=== PATIENT | female | born 1955 | race Caucasian/White ===

== ENCOUNTER → 2016-11-25 | Outpatient (CLI) | payer OTHER, BC ==
[~2016-11-25] MED LIST: ALBU17IN INH; ANAS1TAB PO; ATIV1TAB10 PO; BUDE0.5S6 INH; CALC600T71 PO; CVS20TAB PO; D3400CAP PO; LIPI10TA PO; OCEA0.654; PRED10PA PO; PRED10TA PO; PROBCAP4 PO; TYLE325T5 PO
[2016-11-25 08:26] LABS: ALBUMIN 3.6 GM/DL (3.2-5.2); ALKALINE PHOSPHATASE 48 U/L (45-117); ALT/SGPT 41 U/L (12-78); ANION GAP 8 MEQ/L (8-16); AST/SGOT 18 U/L (15-37); BILIRUBIN,TOTAL 0.6 MG/DL (0.2-1.0); BLOOD UREA NITROGEN 19 MG/DL (7-18); CALCIUM LEVEL 9.4 MG/DL (8.8-10.2); CARBON DIOXIDE LEVEL 31 MEQ/L (21-32); CHLORIDE LEVEL 105 MEQ/L (98-107); CREATININE FOR GFR 0.92 MG/DL (0.55-1.02); GLOMERULAR FILTRATION RATE > 60.0 (>45); GLUCOSE, FASTING 138 MG/DL (80-110); POTASSIUM SERUM 4.1 MEQ/L (3.5-5.1); SODIUM LEVEL 144 MEQ/L (136-145); TOTAL PROTEIN 6.6 GM/DL (6.4-8.2)
== END ==
LOC: M LAB 07:11
PROVIDERS: ATTEND Internal Medicine
DX: R73.09 Other abnormal glucose (principal); E55.9 Vitamin D deficiency, unspecified

== ENCOUNTER → 2016-12-14 | Outpatient (CLI) | payer OTHER, BC ==
--- NOTE | 2016-12-14 14:38 | REP ---
WHOLE-BODY BONE SCAN: 12/14/2016 COMPARISON: 05/15/2014 CLINICAL HISTORY: Breast carcinoma 2014. Left hip and knee pain. TECHNIQUE: The patient received 18.7 millicuries technetium 99m MDP via IV with anterior and posterior whole body delayed images with anterior posterior oblique images of the chest, pelvis, lateral views of the skull and neck and lateral views of the knees and feet. There is a pattern of symmetric increased uptake in the AC and glenohumeral joints, sternoclavicular joints at the hips and knees representing some mild degenerative change. The posterior 1st rib articulation on the right shows increased uptake. There is increased uptake in posterior elements of the cervical spine on the left as before. The other ribs are grossly intact. The thoracic spine shows minor posterior element uptake increase and the lumbar spine grossly intact as well. The SI joints are symmetric and unremarkable. Iliac wings, long bones and scapula are otherwise unremarkable. There is activity in the paranasal sinuses suggesting some chronic sinus disease. There is increased activity of the posterior right calcaneus increased since the 2013 study. Decreased on the left side since 2014 with only minimal uptake there. Some tarsal articular uptake is noted on the lateral views. Kidneys show activity with some uptake in the bladder but no other findings. The calvarium without any acute abnormality. IMPRESSION: 1. Pattern of uptake about the multiple joints as described most consistent with degenerative change. 2. Uptake in the posterior right 1st rib and posterior right calcaneus. This may be post-traumatic and/or possibly metastatic. A metastatic lesion to the heel would be decidedly unusual and this is much more likely traumatic. July 2016 CT of the chest shows sclerosis and advanced degenerative changes at the articulation of the right 1st rib with the adjacent transverse process which has sclerotic appearance. Metastatic disease is not excluded. Signed by Sylvester Grajeda MD 12/14/2016 05:42 P
== END ==
LOC: M RAD 10:23
PROVIDERS: ATTEND Internal Medicine Medical Oncology
DX: M25.552 Pain in left hip (principal); M25.562 Pain in left knee; Z85.3 Personal history of malignant neoplasm of breast

== ENCOUNTER → 2016-12-21 | Outpatient (REF) | payer OTHER, BC ==
[2016-12-21 17:22] LABS: INR 0.87
== END ==
LOC: M LAB REF 16:33
PROVIDERS: ATTEND Internal Medicine Medical Oncology
DX: C50.919 Malignant neoplasm of unspecified site of unspecified female breast (principal); Z79.899 Other long term (current) drug therapy

== ENCOUNTER → 2016-12-25 | Outpatient (CLI) | payer OTHER, BC ==
--- NOTE | 2016-12-25 16:07 | REP ---
CT CERVICAL SPINE WITHOUT CONTRAST: HISTORY: Abnormal bone scan right first rib. There is no acute fracture or subluxation. Disc bulges are present at the C3-4 and C4-5 levels. Disc bulges with associated osteophyte formation are present at the C5-6 and C6-7 levels. Uncinate process and/or facet hypertrophy are present at the C2-3 through C7-T1 levels. These findings produce minimal to mild narrowing of the neural foramina. The C4-5 through C6-7 intervertebral discs are decreased in height consistent with disc degeneration. There are 2 mm of anterior subluxation of C4 on C5. There is no definite bone lesion. IMPRESSION: There is cervical spondylosis at the C3-4 through C7-T1 levels. Signed by David Landry MD 12/25/2016 04:10 P
== END ==
LOC: M RAD 15:01
PROVIDERS: ATTEND Internal Medicine Medical Oncology
DX: M47.812 Spondylosis without myelopathy or radiculopathy, cervical region (principal); M47.813 Spondylosis without myelopathy or radiculopathy, cervicothoracic region

== ENCOUNTER → 2017-01-06 | Outpatient (REF) | payer OTHER, BC | LOC: M LAB REF 13:03 | PROVIDERS: ATTEND Internal Medicine Pulmonary Disease | DX: J45.50 Severe persistent asthma, uncomplicated (principal) ==

== ENCOUNTER → 2017-01-13 | Outpatient (REF) | payer OTHER, BC | LOC: M SFHCWAGY 15:52 | PROVIDERS: ATTEND Nurse Practitioner Women's Health | DX: Z12.4 Encounter for screening for malignant neoplasm of cervix (principal) ==

== ENCOUNTER → 2017-04-08 | Outpatient (REF) | payer OTHER, BC ==
[~2017-04-08] MED LIST changes: +CALC1TAB5 PO; -CALC600T71 PO
== END ==
LOC: M LAB REF 13:25
PROVIDERS: ATTEND Internal Medicine Medical Oncology
DX: C50.919 Malignant neoplasm of unspecified site of unspecified female breast (principal)

== ENCOUNTER → 2017-05-21 | Outpatient (CLI) | payer OTHER, BC ==
--- NOTE | 2017-05-21 18:11 | REP ---
Body radionuclide bone scan: History: Breast carcinoma. Hip pain. Comparison study: 12/14/2016 Technique: 21.6 mCi technetium 99m MDP is injected and standard whole body bone scan imaging is acquired. Scintigraphic findings: There is a degenerative pattern of increased uptake in the cervical thoracic junction in the lower cervical facets. There is uptake in the posterior aspect of the calcaneus on the right as seen previously most likely related to Achilles tendonitis. There is uptake in bilateral kidneys and in the urinary bladder. There is no compelling evidence of skeletal metastatic disease. Impression: No evidence of bony metastasis. Signed by Mandeep Candelario MD 05/25/2017 08:21 A
== END ==
LOC: M RAD 09:52
PROVIDERS: ATTEND Internal Medicine Medical Oncology
DX: C50.919 Malignant neoplasm of unspecified site of unspecified female breast (principal); M25.559 Pain in unspecified hip; M50.30 Other cervical disc degeneration, unspecified cervical region
CPT/HCPCS: 78306; A9503

== ENCOUNTER → 2017-05-25 | Outpatient (CLI) | payer OTHER, BC ==
[2017-05-25 08:11] LABS: ALBUMIN 3.6 GM/DL (3.2-5.2); ALBUMIN/GLOBULIN RATIO 1.03 (1.00-1.93); ALKALINE PHOSPHATASE 52 U/L (45-117); ALT/SGPT 35 U/L (12-78); ANION GAP 11 MEQ/L (8-16); AST/SGOT 19 U/L (15-37); BILIRUBIN,TOTAL 0.7 MG/DL (0.2-1.0); BLOOD UREA NITROGEN 15 MG/DL (7-18); CALCIUM LEVEL 8.7 MG/DL (8.8-10.2); CARBON DIOXIDE LEVEL 25 MEQ/L (21-32); CHLORIDE LEVEL 106 MEQ/L (98-107); CHOLESTEROL LEVEL 159 MG/DL (<200); GLOMERULAR FILTRATION RATE > 60.0 (>45); GLUCOSE, FASTING 112 MG/DL (80-110); POTASSIUM SERUM 4.1 MEQ/L (3.5-5.1); SODIUM LEVEL 142 MEQ/L (136-145); TOTAL PROTEIN 7.1 GM/DL (6.4-8.2); TRIGLYCERIDES LEVEL 221 MG/DL (<150)
== END ==
LOC: M LAB 07:14
PROVIDERS: ATTEND Internal Medicine
DX: E11.9 Type 2 diabetes mellitus without complications (principal)

== ENCOUNTER → 2017-09-28 | Outpatient (CLI) | payer OTHER, BC | LOC: M WHC 14:46 | DX: M85.88 Other specified disorders of bone density and structure, other site (principal); C50.919 Malignant neoplasm of unspecified site of unspecified female breast | CPT/HCPCS: 77080 ==

== ENCOUNTER → 2017-11-29 | Outpatient (REF) | payer OTHER, BC ==
[2017-11-30 10:34] LABS: CA15-3 ANTIGEN 14.4 U/ML (<32.4)
== END ==
LOC: M LAB REF 17:35
DX: C50.919 Malignant neoplasm of unspecified site of unspecified female breast (principal)

== ENCOUNTER → 2017-12-01 | Outpatient (CLI) | payer OTHER, BC ==
[2017-12-01 07:30] LABS: ESTIMATED AVERAGE GLUCOSE 174 MG/DL (60-110); HEMOGLOBIN A1c 7.7 %
[2017-12-01 07:34] LABS: ALBUMIN 3.7 GM/DL (3.2-5.2); ALBUMIN/GLOBULIN RATIO 1.23 (1.00-1.93); ALKALINE PHOSPHATASE 49 U/L (45-117); ALT/SGPT 37 U/L (12-78); ANION GAP 8 MEQ/L (8-16); AST/SGOT 22 U/L (7-37); BILIRUBIN,TOTAL 0.5 MG/DL (0.2-1.0); BLOOD UREA NITROGEN 13 MG/DL (7-18); CALCIUM LEVEL 9.4 MG/DL (8.8-10.2); CARBON DIOXIDE LEVEL 28 MEQ/L (21-32); CHLORIDE LEVEL 105 MEQ/L (98-107); CHOLESTEROL LEVEL 161 MG/DL (<200); CHOLESTEROL RISK RATIO 3.659 (<5); CREATININE FOR GFR 0.81 MG/DL (0.55-1.30); GLOMERULAR FILTRATION RATE > 60.0 (>45); GLUCOSE, FASTING 128 MG/DL (70-100); HDL CHOLESTEROL 44 MG/DL (>40); LDL CHOLESTEROL 86.4 MG/DL (<100); MAGNESIUM LEVEL 1.9 MG/DL (1.8-2.4); NON-HDL-C 117 MG/DL; POTASSIUM SERUM 3.8 MEQ/L (3.5-5.1); SODIUM LEVEL 141 MEQ/L (136-145); TOTAL PROTEIN 6.7 GM/DL (6.4-8.2); TRIGLYCERIDES LEVEL 153 MG/DL (<150)
[2017-12-01 07:44] LABS: MALB URINE SIEMENS 10.1 MG/L; MAU/CREAT RATIO 7.1 MCG/MG (0.0-30.0)
[2017-12-01 08:46] LABS: TOTAL 25(OH) VITAMIN D 55.4 NG/ML (30.0-100.0)
== END ==
LOC: M LAB 06:48
DX: E11.9 Type 2 diabetes mellitus without complications (principal); J45.909 Unspecified asthma, uncomplicated; E55.9 Vitamin D deficiency, unspecified; I10 Essential (primary) hypertension
CPT/HCPCS: 83735

== ENCOUNTER → 2018-01-19 | Outpatient (REF) | payer OTHER, BC | LOC: M SFHCWAGY 15:57 | DX: Z12.4 Encounter for screening for malignant neoplasm of cervix (principal) ==

== ENCOUNTER → 2018-01-24 | Outpatient (REF) | payer OTHER, BC ==
[2018-01-24 18:19] LABS: IMMUNOGLOBULIN E 29.9 IU/ML (<100)
[2018-01-24 19:32] LABS: BASO % 0.3 % (0.0-1.0); EOS # 0.2 10^3/uL (0.0-0.50); EOS % 2.9 % (0.0-3.0); HEMATOCRIT 39.9 % (36.0-47.0); HEMOGLOBIN 13.2 g/dl (12.0-15.5); IMMATURE GRANULOCYTE % 0.3 % (0-3.0); LYMPH # 1.5 10^3/uL (1.5-4.5); LYMPH % 22.1 % (24.0-44.0); MEAN CORPUSCULAR HEMOGLOBIN 29.3 pg (27.0-33.0); MEAN CORPUSCULAR HGB CONC 33.1 g/dl (32.0-36.5); MEAN CORPUSCULAR VOLUME 88.7 fl (80.0-96.0); MONO # 0.5 10^3/uL (0.0-0.8); MONO % 8.1 % (0.0-5.0); NEUTROPHILS # 4.4 10^3/uL (1.8-7.7); NEUTROPHILS % 66.3 % (36.0-66.0); PLATELET COUNT, AUTOMATED 302 10^3/uL (150-450); RED CELL DISTRIBUTION WIDTH 13.3 % (11.5-14.5); WHITE BLOOD COUNT 6.6 10^3/uL (4.0-10.0)
== END ==
LOC: M LAB REF 17:07
DX: J45.50 Severe persistent asthma, uncomplicated (principal)

== ENCOUNTER → 2018-01-25 | Outpatient (REF) | payer OTHER, BC | LOC: M LAB REF 17:24 | DX: J45.51 Severe persistent asthma with (acute) exacerbation (principal) ==

== ENCOUNTER → 2018-04-05 | Outpatient (REF) | payer OTHER, BC | LOC: M SFHCWAGY 10:33 | DX: R87.615 Unsatisfactory cytologic smear of cervix (principal); N95.2 Postmenopausal atrophic vaginitis ==

== ENCOUNTER 2018-04-18 08:02 | Outpatient (RCR) | payer OTHER, BC | END 2018-04-19 | LOC: M PT 08:02 | DX: Z51.89 Encounter for other specified aftercare (principal); I97.2 Postmastectomy lymphedema syndrome; Z90.13 Acquired absence of bilateral breasts and nipples | CPT/HCPCS: 97163 ==

== ENCOUNTER 2018-04-27 08:16 | Outpatient (RCR) | payer OTHER, BC | END 2018-05-20 | LOC: M PT 08:16 | DX: Z51.89 Encounter for other specified aftercare (principal); I89.0 Lymphedema, not elsewhere classified | CPT/HCPCS: 97140 ==

== ENCOUNTER → 2018-06-07 | Outpatient (CLI) | payer OTHER, BC ==
[2018-06-07 07:39] LABS: ESTIMATED AVERAGE GLUCOSE 180 MG/DL (60-110); HEMOGLOBIN A1c 7.9 %
[2018-06-07 07:59] LABS: ALBUMIN 3.4 GM/DL (3.2-5.2); ALBUMIN/GLOBULIN RATIO 1.03 (1.00-1.93); ALKALINE PHOSPHATASE 46 U/L (45-117); ALT/SGPT 22 U/L (12-78); ANION GAP 10 MEQ/L (8-16); AST/SGOT 7 U/L (7-37); BILIRUBIN,TOTAL 0.6 MG/DL (0.2-1.0); BLOOD UREA NITROGEN 22 MG/DL (7-18); CALCIUM LEVEL 9.2 MG/DL (8.8-10.2); CARBON DIOXIDE LEVEL 29 MEQ/L (21-32); CHLORIDE LEVEL 104 MEQ/L (98-107); CHOLESTEROL LEVEL 158 MG/DL (<200); CREATININE FOR GFR 0.84 MG/DL (0.55-1.30); GLOMERULAR FILTRATION RATE > 60.0 (>45); GLUCOSE, FASTING 102 MG/DL (70-100); HDL CHOLESTEROL 65 MG/DL (>40); LDL CHOLESTEROL 57 MG/DL (<100); NON-HDL-C 93 MG/DL; POTASSIUM SERUM 3.7 MEQ/L (3.5-5.1); SODIUM LEVEL 143 MEQ/L (136-145); TOTAL PROTEIN 6.7 GM/DL (6.4-8.2); TRIGLYCERIDES LEVEL 180 MG/DL (<150)
== END ==
LOC: M LAB 06:35
DX: E11.9 Type 2 diabetes mellitus without complications (principal)

== ENCOUNTER → 2018-06-07 | Outpatient (REF) | payer OTHER, BC ==
[2018-06-07 15:13] LABS: CA15-3 ANTIGEN 14.2 U/ML (<32.4)
== END ==
LOC: M LAB REF 13:43
DX: C50.511 Malignant neoplasm of lower-outer quadrant of right female breast (principal); Z79.811 Long term (current) use of aromatase inhibitors
CPT/HCPCS: 86300

== ENCOUNTER → 2018-09-06 | Outpatient (CLI) | payer OTHER, BC ==
[~2018-09-06] MED LIST changes: -ANAS1TAB PO; +ANAS1TAB2 PO
--- NOTE | 2018-09-06 10:42 | REP ---
MAXILLOFACIAL CT WITHOUT CONTRAST: HISTORY: Chronic sinusitis. Mucosal thickening is present in the sinuses. Moderate mucosal thickening is present in the maxillary, ethmoid, left frontal, and left sphenoid sinuses. Minimal mucosal thickening is present in the right frontal and right sphenoid sinuses. Mucosal thickening involves the ostiomeatal units. The middle and inferior nasal turbinates are partially paradoxical. There is francisco bullosa of the right middle nasal turbinate. There is mild deviation of the nasal septum to the left. The cribriform plate, medial gottlieb of the orbits and optic canals are intact. The carotid canals form a segment of the posterolateral gottlieb of the sphenoid sinus. IMPRESSION: Sinus mucosal thickening as described above. Electronically Signed by David Landry MD 09/06/2018 10:43 A
== END ==
LOC: M RAD 09:57
PROVIDERS: ATTEND Otolaryngology
DX: J32.9 Chronic sinusitis, unspecified (principal)

== ENCOUNTER → 2018-12-27 | Outpatient (CLI) | payer OTHER, BC ==
[~2018-12-27] MED LIST changes: +CETI10CH PO; -CVS20TAB PO; +D-10TAB2 PO; +METF750T PO; +OMEP20TA9 PO; +PRED-351 PO; -PRED10TA PO; +PRED5PAK2 PO; +SING10TA32 PO
--- NOTE | 2018-12-30 13:45 | DEXA ---
AP SPINE L1 - L4 1.070 -1.0 0.6 LT FEMUR TOTAL 0.837 -1.4 -0.1 LT NECK RT FEMUR TOTAL 0.840 -1.3 -0.1 RT NECK TOTAL BODY TOTAL OTHER COMMENTS: There is low bone density of the spine and hips. The density of the spine has decreased 10.2% since the initial exam on 09/15/2007. The spine density has increased 0.8% since the most recent exam on 10/08/2017. The density of the left hip has decreased 13.0% since the initial exam on 09/15/2007. The density of the left hip has decreased 1.1% since the most recent exam on 09/28/2017. Density of the right hip has decreased 10.9% since the initial exam on 09/15/2007. The density of the right hip has increased 0.9% since the most recent exam on 09/28/2017. FOLLOW-UP: Recommendation for the next bone density exam: 2 years. DANNY
== END ==
LOC: M WHC 14:36
PROVIDERS: ATTEND Nurse Practitioner Family
DX: Z13.820 Encounter for screening for osteoporosis (principal); M85.89 Other specified disorders of bone density and structure, multiple sites

== ENCOUNTER → 2019-06-17 | Outpatient (CLI) | payer OTHER, BC ==
[~2019-06-17] MED LIST changes: +CALCD50TA PO; -METF750T PO; +METF750T36 PO; +NASA1SPR NARES; +SYMB16INH INH; +TIOT18INH INH
[2019-06-17 09:27] LABS: HEMOGLOBIN A1c 7.6 %
[2019-06-17 10:20] LABS: ALBUMIN 3.8 GM/DL (3.2-5.2); ALT/SGPT 28 U/L (12-78); BILIRUBIN,TOTAL 0.8 MG/DL (0.2-1.0); BLOOD UREA NITROGEN 11 MG/DL (7-18); CALCIUM LEVEL 9.7 MG/DL (8.8-10.2); CARBON DIOXIDE LEVEL 29 MEQ/L (21-32); CHLORIDE LEVEL 107 MEQ/L (98-107); CREATININE FOR GFR 0.83 MG/DL (0.55-1.30); GLOMERULAR FILTRATION RATE > 60.0 (>45); GLUCOSE, FASTING 121 MG/DL (70-100); POTASSIUM SERUM 3.9 MEQ/L (3.5-5.1); SODIUM LEVEL 142 MEQ/L (136-145)
[2019-06-19 10:10] LABS: TOTAL 25(OH) VITAMIN D 55.5 NG/ML (30.0-100.0)
== END ==
LOC: M LAB 08:31
PROVIDERS: ATTEND Internal Medicine
DX: E11.9 Type 2 diabetes mellitus without complications (principal); E55.9 Vitamin D deficiency, unspecified

== ENCOUNTER → 2019-11-01 | Outpatient (CLI) | payer OTHER, BC ==
[~2019-11-01] MED LIST changes: +ALBU8.5H IH
[2019-11-01 07:19] LABS: HEMOGLOBIN A1c 7.6 %
[2019-11-01 07:39] LABS: ALBUMIN 3.8 GM/DL (3.2-5.2); ALT/SGPT 27 U/L (12-78); BILIRUBIN,TOTAL 0.6 MG/DL (0.2-1.0); BLOOD UREA NITROGEN 19 MG/DL (7-18); CARBON DIOXIDE LEVEL 32 MEQ/L (21-32); CHLORIDE LEVEL 103 MEQ/L (98-107); CHOLESTEROL LEVEL 175 MG/DL (<200); CHOLESTEROL RISK RATIO 3.125 (<5); CREATININE FOR GFR 0.84 MG/DL (0.55-1.30); GLOMERULAR FILTRATION RATE > 60.0 (>45); GLUCOSE, FASTING 126 MG/DL (70-100); HDL CHOLESTEROL 56 MG/DL (>40); LDL CHOLESTEROL 92 MG/DL (<100); NON-HDL-C 119 MG/DL; POTASSIUM SERUM 4.1 MEQ/L (3.5-5.1); SODIUM LEVEL 140 MEQ/L (136-145); TOTAL PROTEIN 6.9 GM/DL (6.4-8.2); TRIGLYCERIDES LEVEL 134 MG/DL (<150)
[2019-11-01 07:58] LABS: MALB URINE SIEMENS 19.3 MG/L; MAU/CREAT RATIO 12.3 MCG/MG (0.0-30.0)
== END ==
LOC: M LAB 06:28
PROVIDERS: ATTEND Internal Medicine
DX: E11.9 Type 2 diabetes mellitus without complications (principal); E78.00 Pure hypercholesterolemia, unspecified; K76.0 Fatty (change of) liver, not elsewhere classified

== ENCOUNTER → 2020-02-13 | Outpatient (CLI) | payer OTHER, BC ==
[~2020-02-13] MED LIST changes: +AZIT500T5 PO
--- NOTE | 2020-02-20 15:54 | DEXA ---
AP SPINE L1 - L4 1.085 -0.9 0.7 LT FEMUR TOTAL 0.848 -1.3 0.0 LT NECK 0.323 -1.5 0.0 RT FEMUR TOTAL 0.828 -1.4 -0.1 RT NECK 0.810 -1.6 -0.1 TOTAL BODY TOTAL OTHER COMMENTS: Normal bone densitometry of the spine. There is low bone density of the hips. The increased density of the spine does not represent a significant change. The increased density of the left hip does not represent a significant change. The decreased density of the right hip does not represent a significant change. The density of the spine has decreased 9.0% since the initial exam on 09/15/2007. The increased 1.4% since most recent exam on 01/06/2019. The density of the left hip has decreased 11.9% since initial exam on 09/15/2007. The density of the left hip has increased 1.3% since the most recent exam on 01/06/2019. The density of the right hip has decreased 12.2% since the initial exam on 09/15/2007. The density of the right hip has decreased 1.4% since the most recent exam on 01/06/2019. FOLLOW-UP: Recommendation for the next bone density exam: 2 years. DANNY
== END ==
LOC: M WHC 15:27
PROVIDERS: ATTEND Internal Medicine Medical Oncology
DX: C50.511 Malignant neoplasm of lower-outer quadrant of right female breast (principal); M85.851 Other specified disorders of bone density and structure, right thigh; M85.852 Other specified disorders of bone density and structure, left thigh

== ENCOUNTER → 2020-02-20 | Outpatient (REF) | payer OTHER, BC | LOC: M SFHCWAGY 10:19 | PROVIDERS: ATTEND Nurse Practitioner Women's Health | DX: Z12.4 Encounter for screening for malignant neoplasm of cervix (principal); Z01.419 Encounter for gynecological examination (general) (routine) without abnormal findings ==

== ENCOUNTER → 2020-04-25 | Outpatient (REF) | payer OTHER, BC ==
[2020-06-09 16:28] LABS: ALBUMIN 3.8 GM/DL (3.2-5.2); ALT/SGPT 30 U/L (12-78); BILIRUBIN,TOTAL 0.5 MG/DL (0.2-1.0); BLOOD UREA NITROGEN 15 MG/DL (7-18); CALCIUM LEVEL 9.6 MG/DL (8.8-10.2); CARBON DIOXIDE LEVEL 29 MEQ/L (21-32); CHLORIDE LEVEL 110 MEQ/L (98-107); CREATININE FOR GFR 0.91 MG/DL (0.55-1.30); GLOMERULAR FILTRATION RATE > 60.0 (>45); GLUCOSE, FASTING 144 MG/DL (70-100); HEMOGLOBIN A1c 7.9 %; POTASSIUM SERUM 4.3 MEQ/L (3.5-5.1); SODIUM LEVEL 143 MEQ/L (136-145); TOTAL PROTEIN 6.8 GM/DL (6.4-8.2)
== END ==
LOC: M WUC 10:14
PROVIDERS: ATTEND Internal Medicine
DX: E11.9 Type 2 diabetes mellitus without complications (principal); E78.00 Pure hypercholesterolemia, unspecified

== ENCOUNTER → 2020-04-25 | Outpatient (REF) | payer OTHER, BC ==
[2020-06-11 12:52] LABS: ANTI TETANUS ANTIBODY SEE SEPARATE REPORT; STREP PNEUMO TYPE 1 SEE SEPARATE REPORT
[2020-06-21 02:36] LABS: BASO # 0.1 10^3/uL (0.0-0.2); BASO % 1.3 % (0.0-1.0); EOS # 1.1 10^3/uL (0.0-0.5); EOS % 16.4 % (0.0-3.0); ERYTHROCYTE SEDIMENTATION RATE 10 mm/hr (0-30); HEMATOCRIT 41.7 % (36.0-47.0); HEMOGLOBIN 13.4 g/dl (12.0-15.5); LYMPH # 1.7 10^3/uL (1.5-5.0); LYMPH % 27.2 % (24.0-44.0); MEAN CORPUSCULAR HEMOGLOBIN 29.5 pg (27.0-33.0); MEAN CORPUSCULAR HGB CONC 32.1 g/dl (32.0-36.5); MEAN CORPUSCULAR VOLUME 91.6 fl (80.0-96.0); MONO # 0.5 10^3/uL (0.0-0.8); MONO % 7.5 % (0.0-5.0); NEUTROPHILS % 47.3 % (36.0-66.0); PLATELET COUNT, AUTOMATED 246 10^3/uL (150-450); RED BLOOD COUNT 4.55 10^6/uL (4.00-5.40); WHITE BLOOD COUNT 6.4 10^3/uL (4.0-10.0)
[2020-06-22 15:47] LABS: BLOOD UREA NITROGEN 15 MG/DL (7-18); CALCIUM LEVEL 9.5 MG/DL (8.8-10.2); CARBON DIOXIDE LEVEL 29 MEQ/L (21-32); CHLORIDE LEVEL 109 MEQ/L (98-107); CREATININE FOR GFR 0.94 MG/DL (0.55-1.30); GLOMERULAR FILTRATION RATE > 60.0 (>45); GLUCOSE, FASTING 147 MG/DL (70-100); POTASSIUM SERUM 4.1 MEQ/L (3.5-5.1); SODIUM LEVEL 143 MEQ/L (136-145)
[2020-06-22 15:48] LABS: ALBUMIN 3.7 GM/DL (3.2-5.2); ALT/SGPT 30 U/L (12-78); BILIRUBIN,TOTAL 0.5 MG/DL (0.2-1.0); TOTAL PROTEIN 6.9 GM/DL (6.4-8.2)
== END ==
LOC: M WUC 10:15
PROVIDERS: ATTEND Allergy & Immunology Allergy
DX: D84.9 Immunodeficiency, unspecified (principal)

== ENCOUNTER → 2020-07-14 | Outpatient (REF) | payer OTHER, BC | LOC: M LAB REF 13:18 | PROVIDERS: ATTEND Internal Medicine Pulmonary Disease | DX: J45.51 Severe persistent asthma with (acute) exacerbation (principal) ==

== ENCOUNTER → 2020-08-07 | Outpatient (CLI) | payer OTHER, BC | LOC: M LAB 06:33 | PROVIDERS: ATTEND Allergy & Immunology Allergy | DX: D84.9 Immunodeficiency, unspecified (principal) ==

== ENCOUNTER → 2020-09-08 | Outpatient (CLI) | payer OTHER, BC ==
--- NOTE | 2020-09-08 10:07 | REP ---
INDICATION: PAIN COMPARISON: None. TECHNIQUE: AP, lateral, bilateral oblique views. FINDINGS: There is an oblique nondisplaced fracture of the distal fibular metaphysis with overlying soft tissue swelling. Generalized age-related degenerative changes are appreciated. IMPRESSION: Acute nondisplaced oblique fracture of the distal fibular metaphysis. <Electronically signed by Jozef Day > 09/08/20 [id number]
== END ==
LOC: M WUC 09:49
PROVIDERS: ATTEND Nurse Practitioner Family
DX: M25.572 Pain in left ankle and joints of left foot (principal); W00.0XXA Fall on same level due to ice and snow, initial encounter; Y92.89 Other specified places as the place of occurrence of the external cause; Y93.9 Activity, unspecified; Y99.9 Unspecified external cause status

== ENCOUNTER → 2020-09-19 | Outpatient (REF) | payer OTHER, BC | LOC: M LAB REF 13:16 | PROVIDERS: ATTEND Internal Medicine Pulmonary Disease | DX: J45.50 Severe persistent asthma, uncomplicated (principal) ==

== ENCOUNTER → 2020-09-21 | Outpatient (CLI) | payer SELFPAY | LOC: M LABSMTC 11:07 | PROVIDERS: ATTEND Pediatrics | DX: Z20.828 Contact with and (suspected) exposure to other viral communicable diseases (principal) ==

== ENCOUNTER → 2020-11-06 | Outpatient (CLI) | payer OTHER, BC ==
[2020-11-06 09:33] LABS: BASO # 0.1 10^3/uL (0.0-0.2); BASO % 1.1 % (0.0-1.0); EOS # 0.5 10^3/uL (0.0-0.5); EOS % 9.9 % (0.0-3.0); HEMATOCRIT 40.7 % (36.0-47.0); HEMOGLOBIN 12.9 g/dl (12.0-15.5); LYMPH # 1.7 10^3/uL (1.5-5.0); LYMPH % 30.7 % (24.0-44.0); MEAN CORPUSCULAR HEMOGLOBIN 28.8 pg (27.0-33.0); MEAN CORPUSCULAR HGB CONC 31.7 g/dl (32.0-36.5); MEAN CORPUSCULAR VOLUME 90.8 fl (80.0-96.0); MONO # 0.5 10^3/uL (0.0-0.8); MONO % 9.3 % (2.0-8.0); NEUTROPHILS # 2.7 10^3/uL (1.5-8.5); NEUTROPHILS % 48.8 % (36.0-66.0); PLATELET COUNT, AUTOMATED 227 10^3/uL (150-450); RED BLOOD COUNT 4.48 10^6/uL (4.00-5.40); WHITE BLOOD COUNT 5.5 10^3/uL (4.0-10.0)
[2020-11-06 10:04] LABS: ALBUMIN 3.5 GM/DL (3.2-5.2); ALT/SGPT 23 U/L (12-78); BILIRUBIN,TOTAL 0.5 MG/DL (0.2-1.0); BLOOD UREA NITROGEN 13 MG/DL (7-18); CALCIUM LEVEL 9.3 MG/DL (8.8-10.2); CARBON DIOXIDE LEVEL 31 MEQ/L (21-32); CHLORIDE LEVEL 108 MEQ/L (98-107); CHOLESTEROL LEVEL 166 MG/DL (<200); CHOLESTEROL RISK RATIO 3.387 (<5); CREATININE FOR GFR 0.82 MG/DL (0.55-1.30); GLOMERULAR FILTRATION RATE > 60.0 (>45); GLUCOSE, FASTING 111 MG/DL (70-100); HDL CHOLESTEROL 49 MG/DL (>40); LDL CHOLESTEROL 86 MG/DL (<100); MAGNESIUM LEVEL 1.9 MG/DL (1.8-2.4); NON-HDL-C 117 MG/DL; SODIUM LEVEL 143 MEQ/L (136-145); TOTAL PROTEIN 6.4 GM/DL (6.4-8.2); TRIGLYCERIDES LEVEL 155 MG/DL (<150)
[2020-11-06 10:08] LABS: MALB URINE SIEMENS 12.9 MG/L; MAU/CREAT RATIO 7.5 MCG/MG (0.0-30.0)
[2020-11-06 10:25] LABS: HEMOGLOBIN A1c 7.1 %
== END ==
LOC: M LAB 08:44
PROVIDERS: ATTEND Internal Medicine
DX: I10 Essential (primary) hypertension (principal)

== ENCOUNTER → 2021-02-13 | Outpatient (CLI) | payer OTHER, BC ==
[~2021-02-13] MED LIST changes: +OMEP20TA2 PO; -OMEP20TA9 PO
--- NOTE | 2021-02-13 10:49 | DEXAMM ---
INDICATION: OSTEOPENIA/ON ARMITASE IN HIBITOR/BREAST CA. COMPARISON: Most recent comparison densitometry exam is dated 13 Feb 2020. The most remote is from 15 September 2007. TECHNIQUE: Bone density was measured using dual-energy x-ray absorptionmetry (DEXA). FINDINGS: AP SPINE L1-L4 BMD 1.093 g/cm2 Young Adult T-Score -0.8 Age Matched Z-Score 0.8. LT FEMUR, TOTAL BMD 0.880 g/cm2 Young Adult T-Score -1.0 Age Matched Z-Score 0.3. LT NECK BMD 0.834 g/cm2 Young Adult T-Score -1.5 Age Matched Z-Score 0.1. RT FEMUR, TOTAL BMD 0.844 g/cm2 Young Adult T-Score -1.3 Age Matched Z-Score 0.1. RT NECK BMD 0.806 g/cm2 Young Adult T-Score -1.7 Age Matched Z-Score -0.1. IMPRESSION: There is normal bone density of the spine. There is low bone density of the left hip. There is low bone density of the right hip. The density of the spine has decreased 8.3% since the initial exam on September 15, 2007. The density of the spine increased 0.7% since most recent exam on February 13, 2020. The density of the left hip has decreased 8.5% since initial exam on September 15, 2007. The density of the left hip has increased 3.8% since most recent exam on February 13, 2020. The density of the right hip has decreased 10.5% since the initial exam on September 15, 2007. The density of the right hip has increased 1.9% since the most recent exam on February 13, 2020. FOLLOW-UP: Recommendation for the next bone density exam: 2 years. <Electronically signed by Anoop Candelario > 02/13/21 [id number]
== END ==
LOC: M WHC 09:49
PROVIDERS: ATTEND Internal Medicine Medical Oncology
DX: M85.88 Other specified disorders of bone density and structure, other site (principal); C50.911 Malignant neoplasm of unspecified site of right female breast; Z79.811 Long term (current) use of aromatase inhibitors

== ENCOUNTER → 2021-02-23 | Outpatient (CLI) | payer OTHER, BC ==
[~2021-02-23] MED LIST changes: +BREAST PROSTHESIS B XX; +HIZE20IN SC; +MASTECTOMY BRA BILAT XX
[2021-02-23 09:33] LABS: BASO % 0.2 % (0.0-1.0); EOS # 0.1 10^3/uL (0.0-0.5); EOS % 0.8 % (0.0-3.0); HEMATOCRIT 43.9 % (36.0-47.0); HEMOGLOBIN 14.2 g/dl (12.0-15.5); LYMPH # 1.4 10^3/uL (1.5-5.0); LYMPH % 15.4 % (24.0-44.0); MEAN CORPUSCULAR HEMOGLOBIN 28.6 pg (27.0-33.0); MEAN CORPUSCULAR HGB CONC 32.3 g/dl (32.0-36.5); MEAN CORPUSCULAR VOLUME 88.5 fl (80.0-96.0); MONO # 0.6 10^3/uL (0.0-0.8); MONO % 6.5 % (2.0-8.0); NEUTROPHILS # 6.9 10^3/uL (1.5-8.5); NEUTROPHILS % 76.8 % (36.0-66.0); PLATELET COUNT, AUTOMATED 289 10^3/uL (150-450); RED BLOOD COUNT 4.96 10^6/uL (4.00-5.40); WHITE BLOOD COUNT 8.9 10^3/uL (4.0-10.0)
[2021-02-23 10:14] LABS: IMMUNOGLOBULIN E 54.1 IU/ML (<100)
== END ==
LOC: M LAB 08:54
PROVIDERS: ATTEND Allergy & Immunology Allergy
DX: D84.9 Immunodeficiency, unspecified (principal)

== ENCOUNTER → 2021-02-23 | Outpatient (CLI) | payer OTHER, BC ==
--- NOTE | 2021-02-23 09:17 | REP ---
INDICATION: UNSPECIFIED ASTHMA WITH (ACUTE) EXACERBATION COMPARISON: 03/12/2016 TECHNIQUE: PA and lateral. FINDINGS: The mediastinum and cardiac silhouette are normal. The lung proctor are clear and without acute consolidation, effusion, or pneumothorax. The skeletal structures are intact and normal. IMPRESSION: No acute cardiopulmonary process. <Electronically signed by Jozef Day > 02/23/21 0914
== END ==
LOC: M RAD 08:51
PROVIDERS: ATTEND Physician Assistant
DX: J45.901 Unspecified asthma with (acute) exacerbation (principal); R06.02 Shortness of breath

== ENCOUNTER → 2021-05-08 | Outpatient (CLI) | payer OTHER, BC ==
[2021-05-08 08:00] LABS: HEMOGLOBIN A1c 7.3 %
[2021-05-08 08:14] LABS: ALBUMIN 3.4 GM/DL (3.2-5.2); ALT/SGPT 35 U/L (12-78); BILIRUBIN,TOTAL 0.5 MG/DL (0.2-1.0); BLOOD UREA NITROGEN 20 MG/DL (7-18); CALCIUM LEVEL 8.9 MG/DL (8.8-10.2); CARBON DIOXIDE LEVEL 29 MEQ/L (21-32); CHLORIDE LEVEL 107 MEQ/L (98-107); GLOMERULAR FILTRATION RATE > 60.0 (>45); GLUCOSE, FASTING 135 MG/DL (70-100); MAGNESIUM LEVEL 1.8 MG/DL (1.8-2.4); POTASSIUM SERUM 4.1 MEQ/L (3.5-5.1); SODIUM LEVEL 141 MEQ/L (136-145); TOTAL PROTEIN 7.1 GM/DL (6.4-8.2)
== END ==
LOC: M LAB 07:08
PROVIDERS: ATTEND Internal Medicine
DX: I10 Essential (primary) hypertension (principal); E11.9 Type 2 diabetes mellitus without complications

== ENCOUNTER → 2021-06-11 | Outpatient (CLI) | payer OTHER, BC | LOC: M LABSMTC 09:38 | PROVIDERS: ATTEND Anesthesiology | DX: Z01.812 Encounter for preprocedural laboratory examination (principal); Z20.822 Contact with and (suspected) exposure to COVID-19 ==

== ENCOUNTER 2021-06-16 10:42 | Day surgery (SDC) | payer OTHER, BC ==
[~2021-06-16] VITALS: Ht 154.9 cm; Wt 73.0 kg
[~2021-06-16 10:42] MED LIST changes: +ACETYLCHOLINE OPHTH SOLN 1% 2ML (MIOCHOL-E) As Ordered ONE; +DUOVISC (0.50ML VISCOAT/0.85ML PROVISC) OPHTH KIT As Ordered ONE; +LIDOCAINE 1% MDV 20ML VIAL SQ PRN; +LIDOCAINE 1% SDV 5ML VIAL As Ordered ONE; +LR 1,000 ML IV SCH
[2021-06-16] MEDS ORDERED: MIDAZOLAM INJ 2MG/2ML VIAL (J2250 PER 1MG) As Ordered ONE (13:30)
[2021-06-16] MEDS ORDERED: fentaNYL 100 MCG/2 ML INJECTION (J3010) As Ordered ONE (13:30)
[2021-06-16] MEDS: TETRACAINE 0.5% OPHTH SOLN 4ML OS SCH ×2 (13:50→14:17)
[2021-06-16] MEDS: CYCLOPENTOLATE 1% OPHTH SOLN 2 ML BTL OS SCH ×3 (13:50→14:17)
[2021-06-16] MEDS: FLURBIPROFEN 0.03% OPHTH SOLN 2.5 ML OS SCH ×2 (13:50→14:17)
[2021-06-16] MEDS: PHENYLEPHRINE 2.5% OPHTH SOL 2ML OS SCH ×2 (13:50→14:17)
[2021-06-16 16:45] VITALS: BP 138/97
== END 2021-06-16 16:45 | disposition home or self-care (01) ==
LOC: M SDC 10:42
PROVIDERS: ATTEND Ophthalmology
DX: H25.12 Age-related nuclear cataract, left eye (principal); I10 Essential (primary) hypertension; E78.00 Pure hypercholesterolemia, unspecified; Z92.21 Personal history of antineoplastic chemotherapy; E11.9 Type 2 diabetes mellitus without complications; F41.9 Anxiety disorder, unspecified; J45.909 Unspecified asthma, uncomplicated; Z85.3 Personal history of malignant neoplasm of breast; Z90.13 Acquired absence of bilateral breasts and nipples; Z87.891 Personal history of nicotine dependence; Z88.0 Allergy status to penicillin; Z79.899 Other long term (current) drug therapy; Z79.2 Long term (current) use of antibiotics; Z79.84 Long term (current) use of oral hypoglycemic drugs; Z79.52 Long term (current) use of systemic steroids; Z79.51 Long term (current) use of inhaled steroids
CPT/HCPCS: 66984; J2250; J3010

== ENCOUNTER → 2021-07-09 | Outpatient (CLI) | payer OTHER, BC ==
[~2021-07-09] MED LIST changes: -ACETYLCHOLINE OPHTH SOLN 1% 2ML (MIOCHOL-E) As Ordered ONE; +BIMA01SOL OU; +CALC1TAB63 PO; +D31000TA2 PO; -DUOVISC (0.50ML VISCOAT/0.85ML PROVISC) OPHTH KIT As Ordered ONE; -LIDOCAINE 1% MDV 20ML VIAL SQ PRN; -LIDOCAINE 1% SDV 5ML VIAL As Ordered ONE; -LR 1,000 ML IV SCH; +PATA0.2S OU
== END ==
LOC: M LABSMTC 09:26
PROVIDERS: ATTEND Anesthesiology
DX: Z01.812 Encounter for preprocedural laboratory examination (principal); Z11.52 Encounter for screening for COVID-19

== ENCOUNTER 2021-07-14 10:58 | Day surgery (SDC) | payer OTHER, BC ==
[~2021-07-14] VITALS: Ht 154.9 cm; Wt 73.5 kg
[~2021-07-14 10:58] MED LIST changes: +DUOVISC (0.50ML VISCOAT/0.85ML PROVISC) OPHTH KIT As Ordered ONE; +LIDOCAINE 1% SDV 5ML VIAL As Ordered ONE; +LR 1,000 ML IV SCH; +MIDAZOLAM INJ 2MG/2ML VIAL (J2250 PER 1MG) As Ordered ONE; +fentaNYL 100 MCG/2 ML INJECTION (J3010) As Ordered ONE
--- OUTSIDE RECORDS SUMMARY | 2021-07-14 11:03 | CCD | Continuity of Care Document ---
Author Author Trae RUVALCABA Organization Unknown Address [address], [place] [address] Phone [phone] Care Team Providers Care Medical Social Consultant Name Role Phone Lucas Rivera AUTMalini Unavailable Fritz Hamilton MD AUTM [phone] Problems Active Problems Provider Date Uncomplicated severe persistent asthma Juan Ruvalcaba M.D. Onset: 04/23/2020 Note: Managed by Pulmonology. Chronic obstructive lung disease Juan Ruvalcaba M.D. O nset: 04/23/2020 Allergic rhinitis due to house dust mite Juan Ruvalcaba M.D. Onset: 04/23/2020 Note: 4+ reaction to dust mites on intra dermal test completed in 2019. 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 Onset: 09/23/2020 Social History Type Date Description Comments Sex Unknown Tobacco Use Start: 09/20/70 End: 09/20/86 Patient is a forme r smoker 1.5 Packs Per Day Smoking Status Reviewed: 07/09/21 Patient is a former smoker 1. 5 Packs Per Day Allergies and adverse reactions Active Allergies Criticality Reaction | Severity Comments Date Augmentin Unable to assess criticality rash 05/13/2019 Biaxin Unable to assess criticality cadidiasis 05/13/2019 Amoxicillin Unable to assess criticality Thrush 04/23/2020 Medications Active Medications SIG Qnty Indications Ordering Provide r Date Epinephrine 0.3mg/0. 3ML Solution Auto-Inject inject intramuscularly once as needed for anaphylaxis 2units Juan Ruvalcaba M.D. 10/10/2020 Hizentra 4GM/20ML Soln Prefill Syr patience infuse 10 grams via subcutaneous route once weekly; infused over 3-4 sites at the same time 280ml D80.6 Juan Ruvalcaba M.D. 2020 Prednisone 5mg Tablets One tablet by mouth Wednesday, , Wednesday Greg Hudson Omeprazole 20mg Capsules DR 1 tablet by mouth once daily Unknown Budesonide 0.5mg/2ML Suspension 2 ml via nebulizer as needed Unknown Lorazepam 0.5mg Tablets 1 tablet by mouth once daily Unknown Saline Mist [place] 0.65% Solution 1 spray each nostril three times a day as needed Unknown Pataday 0.2% Solution instill one drop into both eyes daily for itchy eyes if needed. U nknown Spiriva Respimat 2.5mcg/Act Aeroso l inhale 2 puffs (2.5 mcg) by inhalation route once daily for 30 days Unknown Cetirizine HCL 10mg Tablets 1 tab by mouth every day as needed itching and sneezing Unknown Vitamin D3 50mcg (2000 Ut) Capsule s 1 tablet by mouth twice daily Unknown Nasacort Allergy 24HR 55mcg/Act Ae rosol administer 2 sprays per nostril once daily. Unkn own Latanoprost 0.005% Solution 1 drop each eye in the morning Greg Gaona Atorvastatin Calcium 10mg Tablets 1 tablet by mouth once daily at night Fritz Hamilton MD Metformin HCL ER 750mg Tablets ER 24HR 2 tablets by mouth at dinner time Fritz Hamilton MD Ventolin HFA 108(90Base) mcg/Act A erosol 2 puffs every 4-6 hours prn Lucas Rivera Symbicort 160-4.5mcg/Act Aerosol Inhale Two Puffs By Mouth Twice A Day Unknown 0 Azithromycin 500mg Tablets Take One Tablet By Mouth On Wednesday And Wednesday Unknow n Montelukast Sodium 10mg Tablets 1 tablet by mouth once daily Lucas Rivera Anastrozole 1mg Tablets 1 tablet by mouth once daily Unknown Immunizations Description No Information Available Vital Signs Date Vital Result Comment 07/09/2021 11:06am Weight 162.00 lb Height 61 inches 5'1" Heart Rate 76 /min Respiratory Rate 18 /min BP Systolic 127 mmHg BP Diastolic 85 mmHg BMI (Body Mass Index) 30.6 kg/m2 01/21/2021 3:26pm Weight 156.50 lb Height 61 inches 5'1" Heart Rate 92 /min Respiratory Rate 18 /min BP Systolic 118 mmHg BP Diastolic 79 mmHg BMI (Body Mass Index) 29.6 kg/m2 Results Test Acquired Date Facility Test Result H/L Range Note CBC With Differential 02/23/2021 [facility] White Blood Count 8.9 10 Normal 4.0-10.0 Red Blood Count 4.96 10 Normal 4.00-5.40 Hemoglobin 14.2 g/dL Normal 12.0-15.5 Hematocrit 43.9 % Normal 36.0-47.0 Mean Corpuscular Volume 88.5 fl Normal 80.0-96.0 Mean Corpuscular Hemoglobin 28.6 pg Normal 27.0-33.0 Mean Corpuscular HGB Conc 32.3 g/dL Normal 32.0-36.5 Red Cell Distribution Width 13.2 % Normal 11.5-14.5 Platelet Count, Automated 289 10 Normal 150-450 Neutrophils % 76.8 % High 36.0-66.0 Lymph % 15.4 % Low 24.0-44.0 Coal % 6.5 % Normal 2.0-8.0 Eos % 0.8 % Normal 0.0-3.0 Baso % 0.2 % Normal 0.0-1.0 Immature Granulocyte % 0.3 % Normal 0-3.0 Nucleated Red Blood Cell % 0.0 % Normal 0-0 Neutrophils # 6.9 10 Normal 1.5-8.5 Lymph # 1.4 10 Low 1.5-5.0 Coal # 0.6 10 Normal 0.0-0.8 Eos # 0.1 10 Normal 0.0-0.5 Baso # 0.0 10 Normal 0.0-0.2 Immunoglobulin G,A,M 02/23/2021 [facility] Immunoglobulin A 136.0 mg/dL Normal 70-400 Immunoglobulin G 1210 mg/dL Normal 681-1648 Immunoglobulin M 92.0 mg/dL Normal 40-230 Laboratory test finding 02/23/2021 [facility] Immunoglobulin E 54.1 IU/mL Normal <100 Procedures Date Code Description Status 01/21/2021 42807 Office/Outpatient Established Mo d MDM 30-39 Min Completed 01/21/2021 82153 Office/Outpatient Established Lo w MDM 20-29 Min Completed Medical Devices Description No Information Available Encounters Type Date Location Provider Dx Diagnosis Office Visit 01/21/2021 3:15p Main Office Juan Ruvalcaba M.D. D80.6 Antibody defic w near-norm immunoglob or w hyperimmunoglob J30.89 Other allergic rhinitis J44.9 Chronic obstructive pulmonar y disease, unspecified J45.50 Severe persistent asthma, un complicated Assessments Description No Information Available Plan of Treatment No Information Available Functional Status Description No Information Available Mental Status Description No Information Available Referrals Description No Information Available
--- OUTSIDE RECORDS SUMMARY | 2021-07-14 11:03 | CCD ---
Author Author [facility] [email or web address] [facility] Organization [facility] [email or web address] [facility] Address Unknown Phone Unavailable Care Team Providers Care Rental Sales Associate Name Role Phone Fritz Hamilton Unavailable PROBLEMS Type Condition ICD9-CM Code TXO65-OT Code Onset Dates Condition S tatus W/U Status Risk SNOMED Code Notes Problem Fatty liver K76.0 Active confirmed 7 She has a history of liver transaminase elevation is related to fatty liver. Most recent liver function tests as of April 2021 are normal, and they have been for some time. CT scan of her liver in July 2016 demonstrated some stable hemangiomas. Problem Chronic diarrhea K52.9 Active confirmed 236 [id number] She has occasional issues with this at present but has WelChol available to her. She has been using Benefiber with significant benefit. Problem Asthma J45.909 Active confirmed [id number] Nimco torres suffers from periodic and fairly frequent flares likely triggered by sinus disease. We discussed treatment. She is on Pulmicort twice daily nebulized as needed, Symbicort and Spiriva faithfully, and prn albuterol. She is no longer on theophylline. She is on chronic steroid therapy with prednisone 5 mg every other day and is also on azithromycin now. She should use her nasal steroid at least once daily and twice during flares. She is using nasal rinses and she could add budesonide to a nasal rinse daily if needed. She had a CT of her sinuses in August 2018 and there were no surgical options. She is seeing an support staff and started Hizentra therapy as of late October 2020. Problem Allergic rhinitis J30.9 Active confirmed 61 266768 This flares occasionally and contributes to her bronchospasm. She had a full pulmonary workup for her cough including a methacholine challenge test in early 2013 and her sinus disease was implicated. She has seen an ENT provider and a sinus CT was done in August 2018. She is seeing an support staff. I will have her continue her intranasal steroid and she was started on Hizentra infusion therapy as of late October 2020. Problem Anxiety F41.9 Active confirmed [id number] She uses lorazepam when necessary. Problem Headache R51 Active confirmed 60263901 Sh melissa has very rare headaches at present, and these are controlled with a very occasional Excedrin Migraine tablet. Problem Reflux esophagitis K21.0 Active confirmed 2 [id number] On omeprazole. Patient has controlled heartburn. Problem Personal history of breast cancer Z85.3 Active confirmed [id number] She had right breast cancer diagnosed in 2013 and is status post bilateral mastectomies. She has completed I believe 4 cycles of AC Taxol chemotherapy and then ? 12 weeks of another agent, then q 3 week Herceptin chemotherapy through 09/2015. She is now on Femara. She last had a bone densitometry in 2018. Her oncologist has started her on Prolia as of 2018 because of her chronic anastrozole and steroid therapy. Problem Immunodeficiency D84.9 Active confirmed 234 217284 She started Hizentra therapy as of late October 2020, per her support staff. Problem Vitamin D deficiency E55.9 Active confirmed [id number] On Drisdol every other week in the past. Level was 15 in 2009, up to 55 on replacement in May 2019. She is off Drisdol. I have suggested in the past that she supplement with 1000 units of vitamin D daily in addition to her calcium with vitamin D supplementation. Problem Cortical age-related cataract of both eyes H25.013 Active confirmed [id number] Problem Hypertension I10 Active confirmed 9018296 3 On lisinopril in past, starting in December 2010. Dose reduced in 11/2012 to 10mg daily, and further tapered off she was on chemotherapy. Her blood pressure is usually controlled without medication at present. She does get white coat blood pressure elevations. Problem Diabetes mellitus type 2 in nonobese E11.9 Act erin confirmed [id number] She has been on numerous courses of ster oids and this is caused her hemoglobin A1c to be elevated. She started metformin therapy in July 2016. Hemoglobin A1c is stable at 7.3% in April 2021, 7.1% in October 2020, 7.9% in 04/2020, 7.6% in May 2019 and October 2019, 7.5% in November 2018. Urine microalbumin was negative in October 2020. ACP guidelines indicate that less than 8% is acceptable. I increased her metformin to 1500 milligrams daily in November 2016. Problem Hypercholesterolemia E78.00 Active confirmed 19155258 She is on Lipitor and fish oil with essentially optimal lipid control as of October 2020. Problem Hx of bilateral mastectomy Z90.13 Active confirmed 891740958 Problem Oral mucositis (ulcerative), unspecified K12.30 Active confirmed 65956799 This does look like she is definitely al lergic to Augmentin and therefore amoxicillin. This could also have an underlying component of thrush, because she is on daily prednisone and has been on antibiotics ALLERGIES Allergen (clinical drug ingredient) Drug/Non Drug Allergy do cumented on EMR Reaction Allergy Type Onset Date Status Seasonal allergies stuffy nose, watery eyes, congestion No n Drug Allergy Active amoxicillin / clavulanate Augmentin([facility] Code:[address]-81) rash , oral thrush Drug Allergy Active ENCOUNTERS from 1955 to 2021-05-20 Encounter Location Date Provider Diagnosis [place] [id number] [facility] [phone] [place] [address] [facility] Vaccine Route Administration Date Status TDAP 0.5mL Boostrix Unknown Jul 02, 2020 Administered Pneumococcal Adult 0.5mL Pneumovax 23 IM Intramuscular Jun 08, 2018 Administered Influenza 18 yrs & older Flublok IM Intramuscular Jul 19, 2019 Administered Depo-Medrol 40mg Methylpredisolone Acetate IM Intramuscular Aug 15, 2019 Administered Influenza 6mo & up Fluzone Unknown Jul 04, 2014 Admin istered COVID-19 dose #2 given elsewhere Unspecified Unknown Nov 10, 2020 Administered COVID-19 dose #1 given elsewhere Unspecified Unknown Oct 19, 2020 Administered Zoster 50mcg/0.5mL Shingrix Unknown Sep 01, 2018 Admi nistered Pneumococcal Adult 0.5mL Pneumovax 23 Unknown Jul 02 20 Administered Pneumococcal 0.5mL Prevnar 13 Unknown Aug 12, 2015 Ad ministered TD Adult 0.5mL Tetanus Unknown May 30, 2004 Administe red Influenza 6mo & up Fluzone Unknown Sep 21, 2017 Admin istered Influenza 6mo & up Fluzone Unknown Jul 10, 2016 Admin istered SOCIAL HISTORY Sex Assigned At : Social History Observation Description Sex Assigned At Unknown Audit Question Answer Notes Total Score: 1 Interpretation: Alcohol Education Sexual Hx: Question Answer Notes Had sex in the last 12 months (vaginal, oral, or anal)? Yes LMP: post menopause Have you ever had an STD? No with Men only Use protection? No Drug and Alcohol Question Answer Notes Total Score: 0 Interpretation: No problems reported Alcohol Screening: Question Answer Notes Did you have a drink containing alcohol in the past year? Ye s Points 1 Interpretation Negative How often did you have six or more drinks on one occas ion in the past year? Never (0 points) How many drinks did you have on a typica l day when you were drinking in the past year? 1 or 2 (0 points) How often did you have a drink containing alcohol in t he past year? Monthly or less (1 point) BMI Care Goal Follow-Up Question Answer Notes Above Normal BMI Follow-Up Weight monitoring REASON FOR REFERRAL No Information VITAL SIGNS No information MEDICATIONS Medication SIG (Take, Route, Frequency, Duration) Notes Start Da te End Date Status Tylenol 8 Hour 650 MG 1 tablet as needed Orally every 4 hrs Active Cetirizine HCl 10 MG 1 tablet Orally Once a day for 30 day(s) Active predniSONE 5 MG as directed Orally every other day Active Spiriva HandiHaler 18 MCG 1 capsule by inhaling the co ntents of the capsule using the HandiHaler device Inhalation Once a day Active Calcium 500 MG 2 tablet (1000mg) Orally Twice a day Active Sinus Rinse Nasally Active Symbicort 160-4.5 MCG/ACT 2 puffs Inhalation Twice a day Active Fluconazole 100 MG 2 tablets on day 1 then 1 ta blet x days 2-7 Orally Once a day for 7 days January, Not-Taking Elestat 0.05 % 1 drop into both eyes Ophthalmic once daily Not-Taking Lipitor 10 MG 1 tablet Orally Once a day for 90 day(s) Active Prolia 60 MG/ML as directed Subcutaneous Active Nasacort Allergy 24HR 55 MCG/ACT 2 sprays in each nostril Nasally Jagruti ly Active Omeprazole 20 mg 1 capsules Orally Once a day for 90 days Active Hizentra 1 GM/5ML as directed--?dose Subcutaneous Infused weekly Active metFORMIN HCl ER 750 MG 2 tablets with evening meal Orally Once a day for 90 Active Ventolin HFA 108 (90 Base) MCG/ACT 2 puffs as needed I nhalation every 4-6 hrs as needed Active Anastrozole 1 MG 1 tablet Orally Once a day Active Mouthwash 18.5-0.45-0.005 % 5 ml , equal parts licaine , Benadryl, Maalox every 2-3 hours as needed for 14 days January, Not-Taking LORazepam 0.5 MG 1 tablet Orally Twice a day as needed fo r anxiety for 30 days Active Budesonide 0.5 MG/2ML 2 ml Inhalation Twice a day as needed for 90 da ys Active Singulair 10 MG 1 tablet in the evening Orally Once a day Active Azithromycin 250 MG 1 tab Orally Wed, Wed, Wed-jail Active Vitamin D 1000 UNIT 1 tablet Orally twice daily Active Lumigan 0.01 % 1 drop into affected eye in the evening Ophthalm ic Once a day Active PROCEDURES No Information RESULTS No Results REASON FOR VISIT addendum MEDICAL (GENERAL) HISTORY Type Description Date Medical History Diabetes mellitus type 2 in nonobese Medical History Asthma Medical History Hypercholesterolemia Medical History Fatty liver Medical History Anxiety Medical History Vitamin D deficiency Medical History Headache Medical History Reflux esophagitis Medical History Allergic rhinitis Medical History Hypertension Medical History Personal history of breast cancer Medical History Hx of breast cancer Medical History Chronic diarrhea Surgical History C section X 2 Surgical History cholecystectomy Surgical History endometrial Biopsy Surgical History colonoscopy 08/24 Surgical History skin biopsy on right hand/wrist 2011 Surgical History lumpectomy with sentinal lymph node, rig ht breast 02/28/2014 Surgical History bilateral mastectomy, Dr. Mulligan 4 Surgical History Port removal 12/09/2015 Surgical History Biopsy lump under left arm 05/01/2016 Surgical History colonoscopy 2017 Hospitalization History surgeries Hospitalization History asthma observation Hospitalization History childbirth Goals Section No Information Health Concerns No Information MEDICAL EQUIPMENT No Information MENTAL STATUS No Information FUNCTIONAL STATUS No Information ASSESSMENTS No Information PLAN OF TREATMENT Next Appt Details Provider Name:Fritz Hamilton, 2021-11-04 03 :00:00 PM, [address] [place] [address], , [place], [address], Provider Name:Azul Valderrama, 2022-02-25 03:00:00 PM, [address] [place] [address] , [place], [address], Insurance Providers Payer Name Payer Address Payer Phone Insured Name Patient Relati onship to Insured Coverage Start Date Coverage End Date [facility] [id number] [facility] [id number] self BCBS [place] [facility] [place] [id number] [facility] [place] [address] Junior Jackson
--- OUTSIDE RECORDS SUMMARY | 2021-07-14 11:03 | CCD | Continuity of Care Document ---
Author Author Trae RUVALCABA Organization Unknown Address [address], [place] [address] Phone [phone] Care Team Providers Care Long Term Care Social Worker Name Role Phone Lucas Rivera AUTMalini Unavailable Fritz Hamilton MD AUTM [phone] Problems Active Problems Provider Date Uncomplicated severe persistent asthma Juan Ruvalcaba M.D. Onset: 04/23/2020 Note: Managed by Pulmonology. Chronic obstructive lung disease Juan Ruvalcaba M.D. O nset: 04/23/2020 Allergic rhinitis due to house dust mite Juan Ruvalcaba M.D. Onset: 04/23/2020 Note: 4+ reaction to dust mites on intra dermal test completed in 2019. 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0 10 Normal 0.0-0.2 Immunoglobulin G,A,M 02/23/[facility] Immunoglobulin A 136.0 mg/dL Normal 70-400 Immunoglobulin G 1210 mg/dL Normal 681-1648 Immunoglobulin M 92.0 mg/dL Normal 40-230 Laboratory test finding 02/23/2021 [facility] Immunoglobulin E 54.1 IU/mL Normal <100 Procedures Date Code Description Status 07/09/2021 75689 Office/Outpatient Established Hi gh MDM 40-54 Min Completed 07/09/2021 78953 Office/Outpatient Established Mo d MDM 30-39 Min Completed 01/21/2021 [id number] Office/Outpatient Established Mo d MDM 30-39 Min Completed 01/21/2021 [id number] Office/Outpatient Established Lo w MDM 20-29 Min Completed Medical Devices Description No Information Available Encounters Type Date Location Provider Dx Diagnosis Office Visit 07/09/2021 11:00a Main Office Juan Ruvalcaba M.D. 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 07/09/2021 J30.89 Other allergic rhinitis Juan Ruvalcaba M.D. 07/09/2021 J44.9 Chronic obstructive pulmonary di sease, unspecified Juan Ruvalcaba M.D. 07/09/2021 J45.50 Severe persistent asthma, uncomp licated Juan Ruvalcaba M.D. Plan of Treatment Future Appointment(s):* 01/05/2022 3:30 pm - Juan Ruvalcaba M.D. at Main Office 07/09/2021 - Juan Ruvalcaba M.D.* D80.6 Antibody deficiency with near- normal immunoglobulins or with hyperimmunoglobulinemia* Recommendations:* Should stay on Hizentra. Follow up blood work including through IgG will be ordered 1 month before next visit that will be in 6 months. Still future infections should be treated aggressively and without delay and preferably with extended courses of antibiotics. I still explained the risks and benefits associated with IgG supplementation. * J30.89 Other allergic rhinitis* Recommendations:* The patient should continue using nasal spray every night. The spray should be used consistently to be effective. I also reviewed with her effective allergy avoidance measures for dust mites again. * J44.9 Chronic obstructive pulmonary disease, unspecified* Recommendations:* Should stay on current plan as directed by Pulmonology. Will forward this note to Dr. Rivera for continuity. * J45.50 Severe persistent asthma, uncomplicated* Recommendations:* The patient should stay on current treatment plan as directed by Dr. Rivera. * All * Comments:* Will forward this note to Dr. Rivera for continuity.Time spent:Reviewing notes and labs: 10 minutesFace to face and discussion: 35 minutesDocumenting the visit: 10 minutes * Follow up:* 5-6 months. Sooner if needed. Functional Status Description No Information Available Mental Status Description No Information Available Referrals Description No Information Available
--- OUTSIDE RECORDS SUMMARY | 2021-07-14 11:03 | CCD ---
Author Author [facility] Organization [facility] Address Unknown Phone Unavailable Care Team Providers Care Histology Supervisor Name Role Phone Fritz Hamilton Unavailable PROBLEMS Type Condition ICD9-CM Code [id number] Code Onset Dates Condition S tatus W/U [...] Problem Chronic diarrhea K52.9 Active confirmed [id number] She has occasional issues with this at present but has WelChol available to her. She has been using Benefiber with significant benefit. Problem Asthma J45.909 Active confirmed [id number] Nimco torres suffers from periodic and fairly [...] no surgical options. She is seeing an burial vault maker and started Hizentra therapy as of late October 2020. Problem Allergic rhinitis J30.9 Active confirmed [id number] This flares occasionally and contributes to her bronchospasm. She had a full pulmonary workup for her cough including a methacholine challenge test in early 2013 and her sinus disease was implicated. She has seen an ENT provider and a sinus CT was done in August 2018. She is seeing an burial vault maker. I will have her continue her intranasal steroid and she was started on Hizentra infusion therapy as of late October 2020. Problem Anxiety F41.9 Active confirmed [id number] She uses lorazepam when necessary. Problem Headache R51 Active confirmed [id number] Sh melissa has very rare headaches at present, and these are controlled with a very occasional Excedrin Migraine tablet. Problem Reflux esophagitis K21.0 Active confirmed 2 [id number] On omeprazole. Patient has controlled heartburn. Problem Personal history of breast cancer Z85.3 Active confirmed [id number] She had right breast cancer diagnosed in [...] therapy. Problem Immunodeficiency D84.9 Active confirmed 234 [id number] She started Hizentra therapy as of late October 2020, per her burial vault maker. Problem Vitamin D deficiency E55.9 Active confirmed [id number] On Drisdol every other week in the past. Level was 15 in 2009, up to 55 on replacement in May 2019. She is off Drisdol. I have suggested in the past that she supplement with 1000 units of vitamin D daily in addition to her calcium with vitamin D supplementation. Problem Cortical age-related cataract of both eyes H25.013 Active confirmed [id number] Problem Hypertension I10 Active confirmed [id number] 3 On lisinopril in past, starting in December 2010. Dose reduced in 11/2012 to 10mg daily, and further tapered off she was on chemotherapy. Her blood pressure is usually controlled without medication at present. She does get white coat blood pressure elevations. Problem Diabetes mellitus type 2 in nonobese E11.9 Act erin confirmed [id number] She has been on numerous courses of [...] November 2016. Problem Hypercholesterolemia E78.00 Active confirmed [id number] She is on Lipitor and fish oil with essentially optimal lipid control as of October 2020. Problem Hx of bilateral mastectomy Z90.13 Active confirmed [id number] Problem Oral mucositis (ulcerative), unspecified K12.30 Active confirmed 43571141 This does look like she is definitely [...] n Drug Allergy Active amoxicillin / clavulanate Augmentin([facility] Code:[address]-83) rash , oral thrush Drug Allergy Active ENCOUNTERS from 1955 to 2021-05-27 Encounter Location Date Provider Diagnosis [place] [id number] [facility] [phone] [place] [address] Apr, Fritz Alfonso Hypertension I10 ; Hyperchol esterolemia E78.00 ; Diabetes mellitus type 2 in nonobese E11.9 ; Asthma J45.909 ; Anxiety F41.9 ; Reflux esophagitis K21.0 ; Fatty liver K76.0 ; Chronic diarrhea K52.9 ; Vitamin D deficiency E55.9 ; Headache R51 ; Allergic rhinitis J30.9 ; Personal history of breast cancer Z85.3 ; Immunodeficiency D84.9 and Cortical age-related cataract of both eyes H25.013 IMMUNIZATIONS Vaccine Route Administration Date Status TDAP 0.5mL [...] 2018 Admi nistered Pneumococcal Adult 0.5mL Pneumovax Unknown Jul 02 20 Administered Pneumococcal 0.5mL [...] REASON FOR REFERRAL No Information VITAL SIGNS Weight 162 lbs Apr, Weight-kg 73.48 kg Apr, Height 61.25 in Apr, BMI 30.36 kg/m2 Apr, Heart Rate 87 /min Apr, Respiratory Rate 18 /min Apr, Temperature 97.5 degrees Fahrenheit Apr, Oximetry 100 Apr, Blood pressure systolic 136 mm Hg Apr, Blood pressure diastolic 76 mm Hg Apr, MEDICATIONS Medication SIG (Take, Route, Frequency, Duration) [...] 250 MG 1 tab Orally Wed, Wed, Wed-terminal gauger Active Vitamin D 1000 UNIT 1 tablet Orally twice daily Active Lumigan 0.01 % 1 drop into affected eye in the evening Ophthalm ic Once a day Active PROCEDURES No Information RESULTS No Results REASON FOR VISIT 6 Months MEDICAL (GENERAL) HISTORY Type Description Date Medical [...] No Information FUNCTIONAL STATUS No Information ASSESSMENTS Encounter Date Diagnosis Assessment Notes Treatment Notes Treatm ent Clinical Notes Apr, Hypertension (ICD-10 - I10) On lisinopri l in past, starting in December 2010. Dose reduced in 11/2012 to 10mg daily, and further tapered off she was on chemotherapy. Her blood pressure is usually controlled without medication at present. She does get white coat blood pressure elevations. Apr, Hypercholesterolemia (ICD-10 - E78.00) S he is on Lipitor and fish oil with essentially optimal lipid control as of October 2020. Apr, Diabetes mellitus type 2 in nonobese (IC D-10 - E11.9) She has been on numerous courses of steroids and this is caused her hemoglobin A1c [...] to 1500 milligrams daily in November 2016. Apr, Asthma (ICD-10 - J45.909) She suffers fr om periodic and fairly frequent flares likely triggered [...] no surgical options. She is seeing an burial vault maker and started Hizentra therapy as of late October 2020. Apr, Anxiety (ICD-10 - F41.9) She uses lorazepam when necessary. Apr, Reflux esophagitis (ICD-10 - K21.0) On o meprazole. Patient has controlled heartburn. Apr, Fatty liver (ICD-10 - K76.0) She has a h istory of liver transaminase elevation is related to fatty liver. Most recent liver function tests as of April 2021 are normal, and they have been for some time. CT scan of her liver in July 2016 demonstrated some stable hemangiomas. Apr, Chronic diarrhea (ICD-10 - K52.9) She sandhu s occasional issues with this at present but has WelChol available to her. She has been using Benefiber with significant benefit. Apr, Vitamin D deficiency (ICD-10 - E55.9) On Drisdol every other week in the past. Level was 15 in 2009, up to 55 on replacement in May 2019. She is off Drisdol. I have suggested in the past that she supplement with 1000 units of vitamin D daily in addition to her calcium with vitamin D supplementation. Apr, Headache (ICD-10 - R51) She has very rar e headaches at present, and these are controlled with a very occasional Excedrin Migraine tablet. Apr, Allergic rhinitis (ICD-10 - J30.9) This flares occasionally and contributes to her bronchospasm. She had a full pulmonary workup for her cough including a methacholine challenge test in early 2013 and her sinus disease was implicated. She has seen an ENT provider and a sinus CT was done in August 2018. She is seeing an burial vault maker. I will have her continue her intranasal steroid and she was started on Hizentra infusion therapy as of October 2020. Apr, Personal history of breast cancer (ICD-1 0 - Z85.3) She had right breast cancer diagnosed in [...] of her chronic anastrozole and steroid therapy. Apr, Immunodeficiency (ICD-10 - D84.9) She st arted Hizentra therapy as of late October 2020, per her burial vault maker. Apr, Cortical age-related cataract of both eyes (ICD- 10 - H25.013) PLAN OF TREATMENT Future Test Test Name Order Date Comprehensive Metabolic Profile (CMP) 20211112 MAGNESIUM LEVEL [id number] LIPID PANEL (CARDIAC RISK) [id number] HEMOGLOBIN A1c [id number] MICROALBUMIN RANDOM [id number] Next Appt Details 6 Months Reason: Provider Name:Fritz Hamilton, 2021-11-04 03 :00:00 PM, [address] [place] [address], , [place], [address], Provider Name:Azul Valderrama, 2022-02-25 03:00:00 PM, [address] [place] [address], , [place], [address], Insurance Providers Payer Name Payer Address Payer Phone Insured Name Patient Relati onship to Insured Coverage Start Date Coverage End Date [facility] [id number] [facility] [phone] [place] [employer] DAVID MOSES PPO [phone] [facility] [place]y [place] [facility] [place] [address] [address]
--- OUTSIDE RECORDS SUMMARY | 2021-07-14 11:04 | CCD ---
Author Author Greg Gaona MD [facility] Organization Greg Gaona MD [facility] Address [address] [address] Phone Care Team Providers Care Balance Sheet Analyst Name Role Phone Candelaria CHAMBERS, MAUREEN, Greg Lara Unavailable [phone] Fritz Hamilton MD PP [phone] Reason for Referral No Reason for Referral Recorded Problems Includes: Active, inactive, and resolved Problems All Visits Onset Date - Time Resolved Date - Time Provider Co ndition Status Cataract Senile Nuclear 11/01/2018 - 12:00AM Greg Gaona MD, FACS Active Taking Medication For Diabetes Long-term Use of Oral H ypoglycemics 04/26/2017 - 12:00AM Greg Gaona MD, FACS Active Pterygium Peripheral Progressive 04/26/2017 - 12:00AM Greg Gaona MD, FACS Active Pterygium 03/30/2016 - 12:00AM Greg Gaona MD, FACS Inactive Borderline Glaucoma Steroid Responders Both Eyes 03/30/2016 - 12 :00AM Greg Gaona MD, FACS Active Diabetes Mellitus Type 2 Without Complication 08/31/2014 - 12:00 AM Greg Gaona MD, FACS Active Note: Unchanged Conjunctivitis Chronic Allergic 08/28/2013 - 12:00AM Greg Gaona MD, FACS Active Note: Unchanged - both eyes Diabetes Mellitus Type 2 - Uncomplicated, Controlled 08/28/2013 - 12:00AM Greg Gaona MD, FACS Inactive Note: Unchanged Vitreous Floaters Both Eyes 08/28/2013 - 12:00AM Greg Gaona MD, FACS Active Note: Unchanged Dermatochalasis Both Eyelids 02/09/2013 - 12:00AM Greg Gaona MD, FACS Active Note: Unchanged Diabetes Mellitus Without Complication 02/09/2013 - 12:00AM Greg Tolentino MD, FACS Inactive Note: Unchanged Retinopathy Hypertensive Both Eyes 02/09/2013 - 12:00AM Greg Gaona MD, FACS Active Note: Unchanged Pinguecula 02/09/2013 - 12:00AM Greg Gaona MD, FACS Active Note: Unchanged Pterygium Left Eye Nasal 02/09/2013 - 12:00AM Greg Gaona MD, FACS Inactive Note: Unchanged Dry Eye Syndrome Both Eyes 02/09/2013 - 12:00AM Greg Gaona MD, FACS Active Note: Worsening Plan of Treatment Future Appointments Date Time Location Provider Cataract Evaluation 05/13/2021 8:10AM [facility] Findings Encounter Date Ordered intervention and counseling on cessation of to bacco use, 3-10 minutes 6 Month Follow-Up with Greg Gaona MD, FACS 08/28/2013 Ordered intervention and counseling on cessation of to bacco use, 3-10 minutes 6 Month Follow-Up with Greg Gaona MD, [facility] 02/09/2013 Assessments Includes: Assessments for all patient encounters Findings Encounter Date Nuclear senile cataract 6 Month Follow-Up with Greg Rainey MD, [facility] 04/17/2021 Borderline glaucoma steroid responders in both eyes 5 Month Follow-Up with Greg Gaona MD, [facility] 10/07/2020 Nuclear senile cataract 5 Month Follow-Up with Greg Rainey MD, [facility] 10/07/2020 Assessment of long-term use of oral hypoglycemics 6 Mo nth follow up with testing with Greg Gaona MD, FACS 06/12/2020 Borderline glaucoma steroid responders in both eyes 6 Month follow up with testing with Greg Gaona MD, [facility] 06/12/2020 Nuclear senile cataract 6 Month follow up with alex senior with Greg Gaona MD, FACS 06/12/2020 Type 2 diabetes mellitus without complication 6 Month follow up with testing with Greg Gaona MD, FACS 06/12/2020 Assessment of long-term use of oral hypoglycemics 6 Mo nth Follow-Up with Greg Gaona MD, FACS 05/17/2019 Borderline glaucoma steroid responders in both eyes 6 Month Follow-Up with Greg Gaona MD, FACS 05/17/2019 Nuclear senile cataract 6 Month Follow-Up with Greg Rainey MD, FACS 05/17/2019 Type 2 diabetes mellitus without complication 6 Month Follow-Up with Greg Gaona MD, FACS 05/17/2019 Borderline glaucoma steroid responders in both eyes SUAL FIELD 24-2 with Greg Gaona MD, FACS 03/08/2019 Assessment of long-term use of oral hypoglycemics 6 Mo nt Follow-Up with Greg Gaona MD, FACS 11/01/2018 Borderline glaucoma steroid responders in both eyes 6 Month Follow-Up with Greg Gaona MD, FACS 11/01/2018 Nuclear senile cataract 6 Month Follow-Up with Greg Rainey MD, FACS 11/01/2018 Pinguecula 6 Month Follow-Up with Greg valentin MD, FACS 11/01/2018 Type 2 diabetes mellitus without complication 6 Month Follow-Up with Greg Gaona MD, FACS 11/01/2018 Bilateral pinguecula 1 Year Follow-Up with Greg valentin MD, FACS 05/17/2018 Borderline glaucoma steroid responders in both eyes 1 Year Follow-Up with Greg Gaona MD, FACS 05/17/2018 Hypertensive retinopathy of both eyes 1 Year Follow-Up with Greg Gaona MD, FACS 05/17/2018 Long-term use of oral hypoglycemics 1 Year Follow-Up w clary Gaona MD, FACS 05/17/2018 Type 2 diabetes mellitus - uncomplicated, controlled 1 Year Follow-Up with Greg Gaona MD, FACS 05/17/2018 Borderline glaucoma steroid responders in both eyes 4 Month Follow-Up with Greg Gaona MD, FACS 04/26/2017 Long-term use of oral hypoglycemics 4 Month Follow-Up with Greg Gaona MD, FACS 04/26/2017 Progressive peripheral pterygium 4 Month Follow-Up wit h Greg Gaona MD, FACS 04/26/2017 Type 2 diabetes mellitus - uncomplicated, controlled 4 Month Follow-Up with Greg Gaona MD, FACS 04/26/2017 Borderline glaucoma steroid responders in both eyes Di lated Fundal Exam with José Luis Conway DO 01/04/2017 Vitreous degeneration Dilated Fundal Exam with José Luis augustin DO 01/04/2017 Posterior vitreous detachment in the left eye TRIAGE N ON URGENT with José Luis Zoraida DO 11/17/2016 Borderline glaucoma steroid responders in both eyes IO P CHECK with Greg Gaona MD, FACS 10/01/2016 Borderline glaucoma steroid responders in both eyes IO P CHECK with Greg Gaona MD, FACS 05/28/2016 Borderline glaucoma steroid responders in both eyes 10 Month Follow-Up with Greg Gaona MD, FACS 03/30/2016 Dry eye syndrome of both eyes 10 Month Follow-Up with Greg Gaona MD, FACS 03/30/2016 Hypertensive retinopathy of both eyes 10 Month Follow- Up with Greg Tolentino MD, FACS 03/30/2016 Pinguecula 10 Month Follow-Up with Greg tiwair MD, FACS 03/30/2016 Pterygium 10 Month Follow-Up with Greg tiwari MD, FACS 03/30/2016 Type 2 diabetes mellitus without complication 10 Month Follow-Up with Greg Gaona MD, FACS 03/30/2016 Bilateral pinguecula 9 Month Follow-Up with Greg tiwari MD, FACS 06/14/2015 Chronic allergic conjunctivitis both eyes 9 Month Fol low-Up with Greg Gaona MD, FACS 06/14/2015 Dermatochalasis of both eyes 9 Month Follow-Up with Leonel Gaona MD, FACS 06/14/2015 Dry eye syndrome of both eyes 9 Month Follow-Up with Barbara Gaona MD, FACS 06/14/2015 Hypertensive retinopathy of both eyes 9 Month Follow-U p with Greg Gaona MD, FACS 06/14/2015 No rubeosis iridis of both eyes 9 Month Follow-Up with Greg Gaona MD, FACS 06/14/2015 Pterygium of the nasal aspect of the left eye 9 Month Follow-Up with Greg Gaona MD, FACS 06/14/2015 Type 2 diabetes mellitus - uncomplicated, controlled 9 Month Follow-Up with Greg Gaona MD, FACS 06/14/2015 Vitreous floaters in both eyes 9 Month Follow-Up with Greg Gaona MD, FACS 06/14/2015 Chronic allergic conjunctivitis both eyes 6 Month Fol low-Up with Greg Gaona MD, FACS 08/31/2014 Dermatochalasis of both eyes upper and lower lids 6 M onth Follow-Up with Greg Gaona MD, FACS 08/31/2014 Dry eye syndrome of both eyes 6 Month Follow-Up with Barbara Gaona MD, FACS 08/31/2014 Hypertensive retinopathy of both eyes 6 Month Follow-U p with Greg Gaona MD, FACS 08/31/2014 No diabetic macular edema 6 Month Follow-Up with Greg Ramirez MD, FACS 08/31/2014 No diabetic retinopathy 6 Month Follow-Up with Greg Rainey MD, FACS 08/31/2014 No rubeosis iridis 6 Month Follow-Up with Greg valentin MD, FACS 08/31/2014 Pterygium of the nasal aspect of the left eye 6 Month Follow-Up with Greg Gaona MD, FACS 08/31/2014 Type 2 diabetes mellitus without complication 6 Month Follow-Up with Greg Gaona MD, FACS 08/31/2014 Vitreous floaters in both eyes 6 Month Follow-Up with Greg Gaona MD, FACS 08/31/2014 Chronic allergic conjunctivitis both eyes 6 Month Fol low-Up with Greg Gaona MD, FACS 08/28/2013 Dermatochalasis of both eyes 6 Month Follow-Up with Leonel Gaona MD, FACS 08/28/2013 Dry eye syndrome of both eyes 6 Month Follow-Up with Barbara Gaona MD, FACS 08/28/2013 Hypertensive retinopathy of both eyes 6 Month Follow-U p with Greg Gaona MD, FACS 08/28/2013 No diabetic macular edema 6 Month Follow-Up with Greg Ramirez MD, FACS 08/28/2013 No diabetic retinopathy 6 Month Follow-Up with Greg Rainey MD, FACS 08/28/2013 No rubeosis iridis of both eyes 6 Month Follow-Up with Greg Gaona MD, FACS 08/28/2013 Pterygium of the nasal aspect of the left eye 6 Month Follow-Up with Greg Gaona MD, [facility] 08/28/2013 Type 2 diabetes mellitus - uncomplicated, controlled 6 Month Follow-Up with Greg Gaona MD, FACS 08/28/2013 Vitreous floaters in both eyes 6 Month Follow-Up with Greg Gaona MD, [facility] 08/28/2013 Dermatochalasis of both eyes 6 Month Follow-Up with Leonel Gaona MD, FACS 02/09/2013 Diabetes mellitus without complication 6 Month Follow- Up with Greg Tolentino MD, FACS 02/09/2013 Dry eye syndrome of both eyes 6 Month Follow-Up with Barbara Gaona MD, FACS 02/09/2013 Hypertensive retinopathy of both eyes 6 Month Follow-U p with Greg Gaona MD, FACS 02/09/2013 No diabetic macular edema 6 Month Follow-Up with Greg Ramirez MD, FACS 02/09/2013 No diabetic retinopathy 6 Month Follow-Up with Greg Rainey MD, FACS 02/09/2013 No rubeosis iridis of both eyes 6 Month Follow-Up with Greg Gaona MD, [facility] 02/09/2013 Pinguecula 6 Month Follow-Up with Greg valentin MD, FACS 02/09/2013 Pterygium of the nasal aspect of the left eye 6 Month Follow-Up with Greg Gaona MD, [facility] 02/09/2013 Vitreous floaters in both eyes 6 Month Follow-Up with Greg Gaona MD, [facility] 02/09/2013 Instructions Instructions not supported for this document typeNo Instructions Recorded Medical Equipment - Implanted Devices Includes: Current and historical DevicesNo Medical Equipment Recorded Medications Includes: Current and historical Medications Current Medications (continue as prescribed) Latanoprost 0.005% Ophthalmic Solution 03/25/2021 P rovider: Greg Gaona MD, FACS Diagnosis: Steroid responder, b ilateral One drop in each eye at night time. PredniSONE 5MG Oral Tablet 04/26/2017 Provider: Diagnosis: Every other day MetFORMIN HCl ER 750MG Oral Tablet Extended Release 24 Hour 01/04/2017 Provider: Diagnosis: Budesonide 0.5 MG/2ML Suspension 06/14/2015 Provide r: Diagnosis: Anastrozole 1 MG Tablet 06/14/2015 Provider: Diagnosis: LORazepam 0.5 MG Tablet 06/14/2015 Provider: Diagnosis: Calcium 600+D 600-400 MG-UNIT Tablet 06/14/2015 Pro vider: Diagnosis: Vitamin D3 400 UNIT Capsule 06/14/2015 Provider: Diagnosis: Omeprazole 20 MG Capsule Delayed Release 06/14/2015 Provider: Diagnosis: Lipitor 10 MG Tablet 06/14/2015 Provider: Diagnosis: Parsons Saline Nasal Neti Rinse 1.57 GM NA PACK 08/31/2014 Provider: Diagnosis: Past Medications on file Lumigan 0.01% Ophthalmic Solution 03/20/2021 - 04/17/2021 Pr ovider: Greg Gaona MD, FACS Diagnosis: Steroid responder, b ilateral One drop in each eye at night time. Lumigan 0.01% Ophthalmic Solution 10/07/2020 - 03/20/2021 Pr ovider: Greg Gaona MD, FACS Diagnosis: Steroid responder, b ilateral One drop in each eye at night time. Lumigan 0.01% Ophthalmic Solution 07/25/2020 - 10/07/2020 Pr ovider: Greg Gaona MD, FACS Diagnosis: Steroid responder, b ilateral One drop in each eye at night time. Latanoprost 0.005% Ophthalmic Solution 2020 - 06/12/20 Provider: Greg Gaona MD, FACS Diagnosis: Steroid responder, b ilateral One drop in each eye at night time. Lumigan 0.01% Ophthalmic Solution 12/11/2019 - 07/25/2020 Pr ovider: Greg Gaona MD, FACS Diagnosis: Steroid responder, b ilateral One drop in each eye at night time. Pataday 0.2% Ophthalmic Solution 09/15/2019 - 04/17/2021 Pro vider: Greg Gaona MD, FACS Diagnosis: Other chronic allerg ic conjunctivitis One drop in each eye in the morning Pataday 0.2% Ophthalmic Solution 09/08/2019 - 09/15/2019 Pro vider: Greg Gaona MD, FACS Diagnosis: Other chronic allerg ic conjunctivitis One drop in each eye in the morning Lumigan 0.01% Ophthalmic Solution 06/09/2019 - 12/11/2019 Pr ovider: Greg Gaona MD, FACS Diagnosis: Steroid responder, b ilateral One drop in each eye at night time. Lumigan 0.01% Ophthalmic Solution 05/17/2019 - 06/09/2019 Pr ovider: Greg Gaona MD, FACS Diagnosis: Steroid responder, b ilateral One drop in each eye at night time. Pataday 0.2% Ophthalmic Solution 05/17/2019 - 09/08/2019 Pro vider: Greg Gaona MD, FACS Diagnosis: Other chronic allerg ic conjunctivitis One drop in each eye in the morning Elestat 0.05% Ophthalmic Solution 04/14/2019 - 05/14/2019 Pr ovider: Greg Gaona MD, FACS Diagnosis: Steroid responder, b ilateral one drop twice a day in both eyes Lumigan 0.01% Ophthalmic Solution 05/17/2018 - 05/17/2019 Pr ovider: Greg Gaona MD, FACS Diagnosis: Steroid responder, b ilateral One drop in each eye at night time. Lumigan 0.01% Ophthalmic Solution 01/28/2018 - 05/17/2018 Pr ovider: Greg Gaona MD, FACS Diagnosis: Steroid responder, b ilateral One drop in each eye at night time. Lumigan 0.01% Ophthalmic Solution 01/27/2018 - 01/28/2018 Pr ovider: Greg Gaona MD, FACS Diagnosis: Steroid responder, b ilateral One drop in each eye at night time. Elestat 0.05% Ophthalmic Solution 04/26/2017 - 05/17/2018 Pr ovider: Greg Gaona MD, FACS Diagnosis: Other chronic allerg ic conjunctivitis One drop twice a day in both eyes Lumigan 0.01% Ophthalmic Solution 01/04/2017 - 01/27/2018 Pr ovider: José Luis Conway DO Diagnosis: Steroid responder, b ilateral One drop in each eye at night time. MetFORMIN HCl ER 750MG Oral Tablet Extended Release 24 Hour 10/01/2016 - 01/04/2017 Provider: Diagnosis: Lumigan 0.01% Ophthalmic Solution 09/15/2016 - 01/04/2017 Pr ovider: Greg Gaona MD, FACS Diagnosis: Steroid responder, b ilateral One drop in each eye at night time. Lumigan 0.01 % Solution 03/30/2016 - 09/15/2016 Provider: Greg Gaona MD, FACS Diagnosis: Steroid responder, b ilateral One drop in each eye at night time. PredniSONE 10 MG Tablet 03/30/2016 - 04/26/2017 Provider: Diagnosis: Flonase 50 MCG/ACT NA SUSP 08/28/2013 - 06/14/2015 Provider: Diagnosis: 2 sprays in each nostril daily Lisinopril 10 MG OR TABS 02/09/2013 - 08/31/2014 Provider: Diagnosis: 1/2 a day Atorvastatin Calcium 10 MG OR TABS 02/09/2013 - 06/14/2015 P rovider: Diagnosis: Elestat 0.05% OP SOLN 02/09/2013 - 03/30/2016 Provider: Diagnosis: Medications Administered Includes: Administered Medications in patient's chartNo Administered Medications Recorded Vital Signs Includes: Vital Signs from 04/17/2020 through 04/17/2021No Vital Signs Recorded For Specified Dates Results Includes: Results from 04/17/2020 through 04/17/2021No Results Recorded For Specified Dates History of Present Illness History of Present Illness not supported for this document typeNo History of Present Illness Recorded Social History Description Last Updated Previous smoking history 04/17/2021 No tobacco use 04/17/2021 Not using drugs 04/17/2021 Smoking status : Former smoker 04/17/2021 Tobacco non-user 10/07/2020 Alcohol use - occasional 11/19/2014 Alcohol 02/09/2013 Procedures and Surgical History Includes: Procedures from 04/17/2020 through 04/17/2021 Procedures Code Diagnosis Performing Provider Service Location Service Date Comprehensive eye exam established patient [id number] Age-related nuclear cataract, bilateral, Steroid responder, bilateral Greg Gaona MD, MAUREEN Gaona MD [facility] 10/07/2020 Comprehensive eye exam established patient (Signi/Sep Eval. 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, Steroid responder, bilateral, Age-related nuclear cataract, bilateral Greg Gaona MD, MAUREEN Gaona MD [facility] 2019 Scodi, optic nerve with interpretation and report [id number] Steroid responder, bilateral Greg Gaona MD, MAUREEN Gaona MD [facility] 2019 Surgical History Last Updated Surgical / procedural history : 2 C-Sect ions, Cholecystectomy, Lumpectomy - 02/2014, Bilateral Mastectomy - 04/19/2014, Chemo since 10/08/14 10/07/2020 Medical History Includes: Medical History in patient's chart Description Last Updated History of the retina was normal 10/07/2020 04/17/2021 History of diabetes mellitus Dx: Pardeep jack 2011, FBS: does not check A1C: 7.9 with 06/12/2020 No recent change in medical history 06/12/2020 History of fundoscopic exam through dilated pupils was performed 08/31/2014 06/14/2015 History of asthma 06/14/2015 Reported medical history Breast Cancer, Seasonal ana paula rgies, Anxiety 11/19/2014 History of hyperlipidemia 11/19/2014 Currently wearing eyeglasses 02/09/2013 Family History Includes: Family History in patient's chart Description Last Updated Maternal history of arthritis 04/17/2021 Maternal history of cataract 04/17/2021 Maternal history of family history of cancer Paternal history of heart disease 04/17/2021 Sororal history of cataract 04/17/2021 Sororal history of diabetes mellitus 04/17/2021 Sororal history of macular degeneration 04/17/2021 Sororal history of thyroid disorder 04/17/2021 Maternal history of glaucoma 06/14/2015 Maternal history of hypertension 06/14/2015 Sororal history of hypertension 06/14/2015 Family history of arthritis 11/19/2014 Family history of cataract 11/19/2014 Family history of diabetes mellitus 11/19/2014 Family history of glaucoma 11/19/2014 Family history of heart disease 11/19/2014 Family history of hypertension 11/19/2014 Review of Systems Review of Systems not supported for this document typeNo Review of Systems Recorded Mental Status Mental Status not supported for this document type Description Oriented to time, place, and person Anxiety Functional Status Functional Status not supported for this document typeNo Functional Status Recorded Physical Exam Physical Exam not supported for this document typeNo Physical Exam Recorded Immunizations Includes: Immunizations in patient's chartNo Immunizations Recorded Allergies Includes: Active, inactive, and resolved Allergies Substance Type Reaction Onset Date - Time Resolved Date - Ti me Status Amoxicillin Allergy 06/14/2015 - 12:00AM Act erin Encounters Includes: Encounters from 04/17/2020 through 04/17/2021 Encounter Provider Location Date Check-In Time Check-Out Time D iagnosis 6 Month Follow-Up Greg Gaona MD, FACS Greg Gaona MD [facility] 04/17/2021 1:29PM 2:10PM Cataract Senile Nucl ear Rx Refills/Changes Greg Gaona MD, FACS 03/25/2021 10/07/2020 8:37AM 10/07/2020 11:59PM Rx Refills/Changes Greg Gaona MD, [facility] 03/20/2021 10/07/2020 10:32AM 10/07/2020 11:59PM 5 Month Follow-Up Greg Gaona MD, FACS Greg Gaona MD [facility] 10/07/2020 2:40PM 3:32PM Cataract Senile Nucl ear, Borderline Glaucoma Steroid Responders Both Eyes Rx Refills/Changes Greg Gaona MD, [facility] 07/25/2020 06/12/2020 4:44PM 06/12/2020 11:59PM 6 Month follow up with testing Greg Gaona MD, MAUREEN Gaona MD [facility] 06/12/2020 3:01PM 3:35PM Borderline Glauc demetrius Steroid Responders Both Eyes, Diabetes Mellitus Type 2 Without Complication, Assessment of Taking Medication For Diabetes Long-term Use of Oral Hypoglycemics, Cataract Senile Nuclear Insurance Includes: Active Insurance Policies Plan Name Member ID Group # Subscriber Relationship Effective Da bernardo 1 - [employer] /PRIOR AUTHS NEEDED [id number] Ton i Manuel Self 2 - [employer]/BS [id number] Junior Jackson P Advance Directives Includes: Current Advance DirectivesNo Advance Directives Recorded Health Concerns Includes: Active Health ConcernsNo Active Health Concerns Recorded Goals Includes: Active GoalsNo Active Goals Recorded Interventions Includes: Interventions for active GoalsNo Interventions Recorded Evaluations & Outcomes Includes: Evaluations & Outcomes for active GoalsNo Outcomes Recorded
--- OUTSIDE RECORDS SUMMARY | 2021-07-14 11:04 | CCD | Continuity of Care Document ---
Author Author Trae JAMISONOViviana [place] [address] Phone [phone] Care Team Providers Care Kennel Assistant Name Role Phone Fritz Hamilton M.D. AUTM [phone] Annmarie Lakhani R.N. AUTM [phone] Problems Active Problems Provider Date Exacerbation of severe persistent asthma Barbara Chau.O. Onset: 03/12/2016 Uncomplicated severe persistent asthma Barbara Chau.O. O nset: 04/14/2016 Acute bronchitis Barbara Chau.O. Onset: 09/10/2016 Uncomplicated severe persistent asthma Barbara Chau.O. O nset: 12/10/2016 Chronic sinusitis Barbara Chau.O. Onset: 12/10/2016 Exacerbation of severe persistent asthma Lucas Jamison D.O. Onset: 09/02/2017 Acute upper respiratory infection, unspecified Barbara Chau .O. Onset: 10/07/2017 Cough Saeid Torres MD Onset: 08/24/2018 Deviated nasal septum Saeid Torres MD Onset: 08/24/2018 Hypoxemia Bev Severino M.D. Onset: Exacerbation of asthma Bev Severino M.D. Onset: 12/16/2018 Acute otitis media Barbara Chau.O. Onset: 05/08/2021 Immunodeficiency disorder Mandi ChauO. Onset: 021 Social History Type Date Description Comments Sex Unknown Cigarette Use Pack Years - 10 ETOH Use 1-2 A Month Tobacco Use Start: 09/20/78 End: 09/20/88 Patient is a forme r smoker UP TO 1 PPD OFF AND ON X 10 YEARS Smoking Status Reviewed: 01/09/21 Patient is a former smoker UP TO 1 PPD OFF AND ON X 10 YEARS Allergies, Adverse Reactions, Alerts Active Allergies Criticality Reaction | Severity Comments Date Augmentin Unable to assess criticality 10/12/2013 Amoxicillin Unable to assess criticality 08/08/2018 Medications Active Medications SIG Qnty Indications Ordering Provide r Date Prednisone 5mg Tablets Take One Tablet By Mouth Every Other Day 15tabs J45.50 Mandi ChauO. 0 Azithromycin 500mg Tablets Take One Tablet By Mouth On Wednesday , Wednesday And Wednesday 14tabs J45.50 Mandi AguirreO. 08/02/2019 Montelukast Sodium 10mg Tablets take 1 tablet by mouth every day 90tabs J45.21 Mandi ChauO. 05/10 Symbicort 160-4.5mcg/Act Aerosol Inhale Two Puffs By Mouth Twice A Day 10.2units J45.21 Mandi ChauO. 02/11/2016 Budesonide 0.5mg/2ML Suspension inhale one vial twice a day via nebulizer 120ml J45.50 Mandi ChauO. 07/16/2015 Nasacort Allergy 24HR 55mcg/Act Ae rosol 2 sprays each nostril once daily Unknown 0 Spiriva Respimat 1.25mcg/Act Aeros ol inhale 2 puffs by mouth once daily 4gm J45.50 Barbara ChauO. Metformin HCL ER 750mg Tablets ER 24HR 2 tabs by mouth every day Unknown 00 Lumigan 0.01% Solution 1 drop both eyes every day Unknown Cetirizine HCL 10mg Tablets 1 tab by mouth every day 90tabs Unknown Ventolin HFA 108(90Base) mcg/Act A erosol Inhale Two Puffs By Mouth Four Times A Day as Needed 18units Mandi ChauO. Lorazepam 0.5mg Tablets 1 by mouth every 6 hours as needed Unknown Vitamin D3 1000Unit Tablets 1 tab by mouth twice a day Unknown Calcium 600+D 553-585qq-Lqjy Table ts 1 tab by mouth twice a day Unknown Anastrozole 1mg Tablets 1 tab by mouth every day Unknown Saline Flush 0.9% Solution 10 cc flush once daily 300units Unknown Lipitor 10mg Tablets 1 tab by mouth every day Unknown Prilosec 20mg Capsules DR 1 tab by mouth every day 30caps Unknown Immunizations CPT Code Status Date Vaccine Lot # [id number] Given 07/25/2020 Afluria, Quadrivalent, 0.5ml , [facility]# 50778-647-56 [id number] Given 06/29/2019 Afluria, Quadrivalent, 0.5ml , [facility]# 12027-681-88 51277 Given 07/22/2016 Influenza Virus Split 3 Yrs And Above For Intramuscular Use 57088 Given 08/12/2015 Prevnar 13 10629 Given 08/06/2015 Influenza Virus Split 3 Yrs And Above For Intramuscular Use Vital Signs Date Vital Result Comment 05/08/2021 8:26am BP Systolic 118 mmHg BP Diastolic 78 mmHg Heart Rate 83 /min O2 % BldC Oximetry 99 % Height 61 inches 5'1" Weight 160.00 lb BMI (Body Mass Index) 30.2 kg/m2 [place] Body Weight 105 lb Weight 72.576 kg BSA (Body Surface Area) 1.72 m2 01/09/2021 2:49pm BP Systolic 122 mmHg BP Diastolic 84 mmHg Heart Rate 74 /min O2 % BldC Oximetry 98 % Body Temperature 96.1 F Height 61 inches 5'1" Weight 153.00 lb BMI (Body Mass Index) 28.9 kg/m2 [place] Body Weight 105 lb Weight 69.401 kg BSA (Body Surface Area) 1.69 m2 Results Test Acquired Date Facility Test Result H/L Range Note FVL/[place] 05/08/2021 [employer] PDFReport SEE IMAGE FVC-Pred 2.71 L FVC-Pre 3.09 L FVC-%Pred-Pre 114 L FVC-LLN 2.08 L Fev1-Pred 2.05 L Fev1-Pre 2.20 L Fev1-%Pred-Pre 107 L Fev1-LLN 1.52 L Fev6-Pred 2.59 L Fev6-Pre 3.05 L Fev6-%Pred-Pre 118 L Fev6-LLN 1.97 L Vea8syo-Krxa 76 % Oft3rhr-Twv 71 % Ptb5enk-%Pred-Pre 93 % Fcc7eyq-SFC 67 % Yra0dot-Jlxh 96 % Bju9spi-Jmb 99 % Gmo8qyl-%Pred-Pre 103 % FEFMax-Pred 5.34 L/E/sec FEFMax-Pre 4.90 L/E/sec FEFMax-%Pred-Pre 91 L/E/sec FEFMax-LLN 3.78 L/E/sec Elb0597-Cacs 1.82 L/E/sec Ytg8856-Kkw 1.46 L/E/sec Cjh4256-%Pred-Pre 80 L/E/sec Wwv2994-XHP 0.70 L/E/sec ExpTime-Pre 6.79 sec Slp8loj2-Pnmp 79 % Edi7zev2-Irg 72 % Nok5clt4-%Pred-Pre 90 % Lyn1byu6-RPR 71 % FVL/[place] 01/09/2021 [facility] PDFReport SEE IMAGE FVC-Pred 2.74 L FVC-Pre 2.83 L FVC-%Pred-Pre 103 L FVC-LLN 2.11 L Fev1-Pred 2.08 L Fev1-Pre 1.88 L Fev1-%Pred-Pre 90 L Fev1-LLN 1.55 L Fev6-Pred 2.62 L Fev6-Pre 2.83 L Fev6-%Pred-Pre 108 L Fev6-LLN 2.00 L Ikk3pjf-Quan 77 % Gea3owf-Ztj 66 % Irm6nlf-%Pred-Pre 86 % Zbm6ziv-YRF 67 % Ltc0mcy-Pnxk 96 % Vss2pxi-Qth 100 % Tuu8ipv-%Pred-Pre 104 % FEFMax-Pred 5.41 L/E/sec FEFMax-Pre 4.84 L/E/sec FEFMax-%Pred-Pre 89 L/E/sec FEFMax-LLN 3.85 L/E/sec Gaq8809-Iuza 1.87 L/E/sec Tgr5679-Vea 1.08 L/E/sec Xfa0963-%Pred-Pre 57 L/E/sec Exl6200-JOU 0.74 L/E/sec ExpTime-Pre 5.90 sec Rzc6xji1-Nutk 80 % Auc1jlu8-Mla 66 % Atu7ygn4-%Pred-Pre 83 % Wto4qow2-IKN 71 % Procedures Date Code Description Status 05/08/2021 66102 Office/Outpatient Established Mo d MDM 30-39 Min Completed 05/08/2021 99190 Spirometry Completed 01/09/2021 72091 Office/Outpatient Established Lo w MDM 20-29 Min Completed 01/09/2021 10097 Spirometry Completed Medical Devices Description No Information Available Encounters Type Date Location Provider Dx Diagnosis Office Visit 05/08/2021 8:30a [facility] Pulmonary/Thoracic Lucas Se ars, D.O. H66.91 Otitis media, unspecified, right ear J45.50 Severe persistent asthma, un complicated D84.9 Immunodeficiency, unspecifie d Office Visit 01/09/2021 3:00p [facility] Pulmonary/Thoracic Lucas Se ars, D.O. J45.50 Severe persistent asthma, uncomplicated D84.9 Immunodeficiency, unspecifie d Assessments Date Code Description Provider 05/08/2021 H66.91 Acute otitis media Lucas Sears, D .O. 05/08/2021 J45.50 Severe persistent asthma, uncomp licated Lucas Sears, D.O. 05/08/2021 D84.9 Immunodeficiency, unspecified Ro ry Sears, D.O. 01/09/2021 J45.50 Severe persistent asthma, uncomp licated Lucas Sears, D.O. 01/09/2021 D84.9 Immunodeficiency, unspecified Ro ry Sears, D.O. Plan of Treatment Future Appointment(s):* 09/02/2021 3:30 pm - Lucas Sears, D.O. at [facility] Pulmonary/Thoracic 05/08/2021 - Lucas Sears, D.O.* H66.91 Acute otitis media * J45.50 Severe persistent asthma, uncomplicated * D84.9 Immunodeficiency, unspecified * * New Labs:* FVL/[place], Ordered: 05/08/21 * Follow up:* Follow up in four months with spirometry. Functional Status Description No Information Available Mental Status Description No Information Available Referrals Description No Information Available
--- OUTSIDE RECORDS SUMMARY | 2021-07-14 11:04 | CCD | Continuity of Care Document ---
Author Author Trae JAMISONOViviana Organization [place] [address] Phone [phone] Care Team Providers Care Staff Combat Information Center Officer Name Role Phone Fritz Hamilton M.D. AUTM [phone] Annmarie Lakhani R.N. AUTM [phone] Problems Active Problems Provider Date Exacerbation of [...] Severino M.D. Onset: 12/16/2018 Acute otitis media Lucas Jamison D.O. Onset: 05/08/2021 Immunodeficiency disorder Mandi ChauO. Onset: [...] mouth twice a day Unknown Calcium 600+D 404-445hi-Yhee Table ts 1 tab by mouth twice a day Unknown Anastrozole 1mg Tablets 1 tab by mouth every day Unknown Saline Flush 0.9% Solution 10 cc flush once daily 300units Unknown Lipitor 10mg Tablets 1 tab by mouth every day Unknown Prilosec 20mg Capsules DR 1 tab by mouth every day 30caps Unknown Immunizations CPT Code Status Date Vaccine Lot # [id number] Given 07/25/2020 Afluria, Quadrivalent, 0.5ml , [facility]# [id number] 12422 Given 06/29/2019 Afluria, Quadrivalent, 0.5ml , [facility]# [id number] 41687 Given 07/22/2016 Influenza Virus Split 3 Yrs And Above For Intramuscular Use 40198 Given 08/12/2015 Prevnar 13 02067 Given 08/06/2015 Influenza Virus Split 3 Yrs And Above For Intramuscular Use Vital Signs Date Vital Result Comment 05/08/2021 8:26am BP Systolic 118 mmHg BP Diastolic 78 mmHg Heart Rate 83 /min O2 % BldC Oximetry 99 % Height 61 inches 5'1" Weight 160.00 lb BMI (Body Mass Index) 30.2 kg/m2 [place] Body Weight 105 lb Weight 72.576 kg BSA (Body Surface Area) 1.72 m2 01/09/2021 2:49pm BP Systolic 122 mmHg BP Diastolic 84 mmHg Heart Rate 74 /min O2 % BldC Oximetry 98 % Body Temperature 96.1 F Height 61 inches 5'1" Weight 153.00 lb BMI (Body Mass Index) 28.9 kg/m2 [place] Body Weight 105 lb Weight 69.401 kg BSA (Body Surface Area) 1.69 m2 Results Test Acquired Date Facility Test Result H/L Range Note FVL/[place] 05/08/2021 [employer] PDFReport SEE IMAGE FVC-Pred 2.71 L FVC-Pre 3.09 L FVC-%Pred-Pre 114 L FVC-LLN 2.08 L Fev1-Pred 2.05 L Fev1-Pre 2.20 L Fev1-%Pred-Pre 107 L Fev1-LLN 1.52 L Fev6-Pred 2.59 L Fev6-Pre 3.05 L Fev6-%Pred-Pre 118 L Fev6-LLN 1.97 L Aez0sjw-Zlbp 76 % Xyr1gxq-Utx 71 % Iyp5fkf-%Pred-Pre 93 % Juw2tgn-JBK 67 % Dla4grm-Nwks 96 % Kiq0jjt-Mil 99 % Ghf0vcx-%Pred-Pre 103 % FEFMax-Pred 5.34 L/E/sec FEFMax-Pre 4.90 L/E/sec FEFMax-%Pred-Pre 91 L/E/sec FEFMax-LLN 3.78 L/E/sec Omn8902-Erfb 1.82 L/E/sec Mtl9040-Ozr 1.46 L/E/sec Xzp7056-%Pred-Pre 80 L/E/sec Jcl5989-IVS 0.70 L/E/sec ExpTime-Pre 6.79 sec Nkb8gsk6-Plof 79 % Sms7bjk6-Wpb 72 % Bzi3gwb0-%Pred-Pre 90 % Vkq9qtg3-UOJ 71 % FVL/[place] 01/09/2021 [employer] PDFReport SEE IMAGE FVC-Pred 2.74 L FVC-Pre 2.83 L FVC-%Pred-Pre 103 L FVC-LLN 2.11 L Fev1-Pred 2.08 L Fev1-Pre 1.88 L Fev1-%Pred-Pre 90 L Fev1-LLN 1.55 L Fev6-Pred 2.62 L Fev6-Pre 2.83 L Fev6-%Pred-Pre 108 L Fev6-LLN 2.00 L Tul1eqf-Mfqh 77 % Tqv9gdn-Juj 66 % Dtl7nmy-%Pred-Pre 86 % Hdt9cfe-RKN 67 % Cbt9mns-Hpes 96 % Fws9rdk-Nnj 100 % Wxq1nem-%Pred-Pre 104 % FEFMax-Pred 5.41 L/E/sec FEFMax-Pre 4.84 L/E/sec FEFMax-%Pred-Pre 89 L/E/sec FEFMax-LLN 3.85 L/E/sec Jqt4919-Bktm 1.87 L/E/sec Cvi1746-Lhu 1.08 L/E/sec Ika7004-%Pred-Pre 57 L/E/sec Feo4562-XWI 0.74 L/E/sec ExpTime-Pre 5.90 sec Hvd8ofm1-Ihks 80 % Cve3rbv3-Ucb 66 % Iuy6wmg4-%Pred-Pre 83 % Tcm2apk4-ADF 71 % Procedures Date Code Description Status 01/09/2021 10341 Office/Outpatient Established Lo w MDM 20-29 Min Completed 01/09/2021 86479 Spirometry Completed Medical Devices Description No Information Available Encounters Type Date Location Provider Dx Diagnosis Office Visit 01/09/2021 3:00p [facility] Pulmonary/Thoracic Lucas Se ars, D.O. J45.50 Severe [...] 3:30 pm - Lucas Sears, D.O. at [facility] Pulmonary/Thoracic 05/08/2021 - Lucas Sears, D.O.* H66.91 Acute otitis media * J45.50 Severe persistent asthma, uncomplicated * D84.9 Immunodeficiency, unspecified * * New Labs:* FVL/[place], Ordered: 05/08/21 * Follow up:* Follow up in 4 months with spirometry. Functional Status Description No Information Available Mental Status Description No Information Available Referrals Description No Information Available
--- OUTSIDE RECORDS SUMMARY | 2021-07-14 11:04 | CCD | Continuity of Care Document ---
Author Author Trae KILGORE Organization Unknown Address [address] [place] [address] Phone [phone] Care Team Providers Care Air Pumper Name Role Phone Fritz Hamilton MD AUTM [phone] Lucas Rivera DO AUTM [phone] Guilherme [employer] AUTM [phone] [facility] Orth AUTM [phone] Problems Description No Information Available Social History Type Date Description Comments Sex Unknown ETOH Use Occasionally consumes alcohol Tobacco Use Start: Unknown End: Unknown Patient is a former smoker 1986 Smoking Status Reviewed: 04/23/21 Patient is a former smoker 19 87 Allergies, Adverse Reactions, Alerts Active Allergies Reaction Severity Comments Date Amoxicillin rash 07/06/2017 Augmentin thrush 01/04/2021 Inactive Allergies NKDA 08/06/2009 Medications Active Medications SIG Qnty Indications Ordering Provide r Date Cefdinir 300mg Capsules 1 cap by mouth twice a day for 7 days 14caps J01.90 Malini Marrero JR. 04/23/2021 Prednisone 20mg Tablets 2 tab by mouth daily x 5 days 10tabs J01.90 Gunner Rea JR., M.D. 12/2020 Ventolin HFA 108(90Base) mcg/Act A erosol 1-2 puffs q4-6 hours prn shortness of breath 1units Gunner Rea JR., M.D. 08/18/2013 Metformin HCL 1000mg Tablets Unknown Immunoglobulin Therapy q week Unknown Anastrozole 1mg Tablets qd Unknown Azithromycin 500mg Tablets M W F Unknown Albuterol Sulfate 1.25mg/3ML Nebul izer one vial via nebulizer every 4-6hrs for cough/wheezing Unknown Pataday 0.1% Solution Unknown Singulair 10mg Tablets 1 by mouth every day Unknown Spiriva Handihaler 18mcg Capsules Unknown Lumigan 0.01% Solution 1 drop both eyes every day Unknown Symbicort 160-4.5mcg/Act Aerosol 2 puffs inhaled by mouth every 12 hours Unknown Calcium 600+D 418-288su-Ovsx Tablets bid Unknown Vitamin D3 400Unit Capsules b id Unknown Budesonide 0.5mg/2ML Suspension bid Unknown Saline Flush 0.9% Solution ev dennis Unknown Omeprazole 20mg Unknown Lipitor 10mg Tablets 1 po od Unknown History Medications Prednisone 20mg Tablets 2 tab by mouth daily x 5 days 10tabs J45.901 Gunner Rea JR., M.D. 01/2021 - 02/27/2021 Cefdinir 300mg Capsules 1 cap by mouth twice a day for 7 days 14caps J01.90 Malini Marrero JR. 02/03/2021 - 02/10/2021 Prednisone 20mg Tablets 1 tab twice a day for 5 days 10tabs J45.901 Gunner Rea JR., M.D. - 01/09/2021 Medications Administered in Office Medication SIG Qnty Indications Ordering Provider Date Methylprednisolone Sodium Succinate To 1 25 MG Injection Eun Russell Immunizations CPT Code Status Date Vaccine Lot # [id number] Given 03/29/2010 Tetanus (Td) Vaccine 7Yrs> Vital Signs Date Vital Result Comment 04/23/2021 8:12am BP Systolic 134 mmHg BP Diastolic 87 mmHg Heart Rate 77 /min Respiratory Rate 13 /min O2 % BldC Oximetry 99 % Body Temperature 96.9 F Weight 154.00 lb Height 61 inches 5'1" BMI (Body Mass Index) 29.1 kg/m2 Pain Level 5 02/22/2021 3:02pm BP Systolic 146 mmHg BP Diastolic 96 mmHg Heart Rate 90 /min Respiratory Rate 16 /min O2 % BldC Oximetry 95 % Body Temperature 97.0 F Weight 154.00 lb Height 61 inches 5'1" BMI (Body Mass Index) 29.1 kg/m2 Pain Level 1 Results Description No Information Available Procedures Date Code Description Status 04/23/2021 93693 Office/Outpatient Established Mo d MDM 30-39 Min Completed 02/22/2021 33221 Office/Outpatient Established Mo d MDM 30-39 Min Completed 02/03/2021 28772 Office/Outpatient Established Mo d MDM 30-39 Min Completed 01/04/2021 75820 Office/Outpatient Established Lo w MDM 20-29 Min Completed Medical Devices Description No Information Available Encounters Type Date Location Provider Dx Diagnosis Office Visit 04/23/2021 8:05a Main Office Isaac Kilgore, P.A. J0 1.90 Acute sinusitis, unspecified J06.9 Acute upper respiratory infe ction, unspecified J45.909 Unspecified asthma, uncompli cated Office Visit 02/22/2021 3:00p Main Office Isaac Kilgore, P.A. J4 5.901 Unspecified asthma with (acute) exacerbation R06.02 Shortness of breath Office Visit 02/03/2021 3:50p Main Office Isaac Kilgore, P.A. J0 1.90 Acute sinusitis, unspecified Office Visit 01/04/2021 8:40a Main Office Yvonne Oakley NP J45. 901 Unspecified asthma with (acute) exacerbation Assessments Date Code Description Provider 04/23/2021 J01.90 Acute sinusitis, unspecified Raymundo Kilgore, P.A. 04/23/2021 J06.9 Acute upper respiratory infectio n, unspecified Isaac Kilgore, P.A. 04/23/2021 J45.909 Unspecified asthma, uncomplicate d Isaac Kilgore, P.A. 02/22/2021 J45.901 Unspecified asthma with (acute) exacerbation Isaac Kilgore, P.A. 02/22/2021 R06.02 Shortness of breath Isaac charles, P.A. 02/03/2021 J01.90 Acute sinusitis, unspecified Jennyfer Yadav. 01/04/2021 J45.901 Unspecified asthma with (acute) exacerbation Yvonne Oakley NP Plan of Treatment 04/23/2021 - Isaac Kilgore, P.A.* J01.90 Acute sinusitis, unspecified* New Medication:* Prednisone 20 mg - 2 tab by mouth daily x 5 days * Cefdinir 300 mg - 1 cap by mouth twice a day for 7 days * Comments:* Supportive care Increase fluidsOTC cough/cold meds per package instructions Delayed rx for antibioticsSigns/symptoms of bacterial rhinosinusitis discussed, continue OTC meds and monitorFill antibiotics in the next 2-3 days for concerning symptoms and follow with PCP. If symptoms improve stick with OTC medications as needed. Patient voiced understanding and agrees to treatment plan. * J06.9 Acute upper respiratory infection, unspecified* Comments:* Discussed likely current viral etiologySupportive care with OTC cough/cold meds as needed per package instructions. Increase fluidsRestFollow with PCP Return as needed for increasing or persisting symptoms. * J45.909 Unspecified asthma, uncomplicated* Comments:* stable currentlycontinue meds as prescribedreturn or to PCP prn Functional Status Description No Information Available Mental Status Description No Information Available Referrals Description No Information Available
--- OUTSIDE RECORDS SUMMARY | 2021-07-14 11:04 | CCD | Continuity of Care Document ---
Author Author Trae JAMISONOViviana [place] [address] Phone [phone] Care Team Providers Care Arch Support Technician Name Role Phone Fritz Hamilton M.D. AUTM [phone] Annmarie Lakhani R.N. AUTM [phone] Problems Active Problems Provider Date Exacerbation of [...] mouth twice a day Unknown Calcium 600+D 165-128tq-Otvy Table ts 1 tab by mouth twice a day Unknown Anastrozole 1mg Tablets 1 tab by mouth every day Unknown Saline Flush 0.9% Solution 10 cc flush once daily 300units Unknown Lipitor 10mg Tablets 1 tab by mouth every day Unknown Prilosec 20mg Capsules DR 1 tab by mouth every day 30caps Unknown Immunizations CPT Code Status Date Vaccine Lot # [id number] Given 07/25/2020 Afluria, Quadrivalent, 0.5ml , [facility]# 28046-429-71 20311 Given 06/29/2019 Afluria, Quadrivalent, 0.5ml , [facility]# [id number] 95702 Given 07/22/2016 Influenza Virus Split 3 Yrs And Above For Intramuscular Use 49434 Given 08/12/2015 Prevnar 13 62424 Given 08/06/2015 Influenza Virus Split 3 Yrs And Above For Intramuscular Use Vital Signs Date Vital Result Comment 05/08/2021 8:26am BP Systolic 118 mmHg BP Diastolic 78 mmHg Heart Rate 83 /min O2 % BldC Oximetry 99 % Height 61 inches 5'1" Weight 160.00 lb BMI (Body Mass Index) 30.2 kg/m2 [place] Body Weight 105 lb Weight 72.576 kg BSA (Body Surface Area) 1.72 m2 01/09/2021 2:49pm BP Systolic 122 mmHg BP Diastolic 84 mmHg Heart Rate 74 /min O2 % BldC Oximetry 98 % Body Temperature 96.1 F Height 61 inches 5'1" Weight 153.00 lb BMI (Body Mass Index) 28.9 kg/m2 [place] Body Weight 105 lb Weight 69.401 kg BSA (Body Surface Area) 1.69 m2 Results Test Acquired Date Facility Test Result H/L Range Note FVL/[place] 05/08/2021 [employer] PDFReport SEE IMAGE FVC-Pred 2.71 L FVC-Pre 3.09 L FVC-%Pred-Pre 114 L FVC-LLN 2.08 L Fev1-Pred 2.05 L Fev1-Pre 2.20 L Fev1-%Pred-Pre 107 L Fev1-LLN 1.52 L Fev6-Pred 2.59 L Fev6-Pre 3.05 L Fev6-%Pred-Pre 118 L Fev6-LLN 1.97 L Iar9ymy-Cxcd 76 % Rok4bzs-Osg 71 % Eyl7ouq-%Pred-Pre 93 % Sxi4zon-TRP 67 % Dvm4lzw-Rfsf 96 % Aoe1zfl-Wki 99 % Qyx1cse-%Pred-Pre 103 % FEFMax-Pred 5.34 L/E/sec FEFMax-Pre 4.90 L/E/sec FEFMax-%Pred-Pre 91 L/E/sec FEFMax-LLN 3.78 L/E/sec Gwl5994-Jnmm 1.82 L/E/sec Zup7947-Quv 1.46 L/E/sec Aew5757-%Pred-Pre 80 L/E/sec Ggt8024-DUS 0.70 L/E/sec ExpTime-Pre 6.79 sec Jgq1qgb4-Mwnf 79 % Teu5rxd1-Ivd 72 % Wzm4dyj9-%Pred-Pre 90 % Ylw4okw5-UAT 71 % FVL/[place] 01/09/2021 [employer] PDFReport SEE IMAGE FVC-Pred 2.74 L FVC-Pre 2.83 L FVC-%Pred-Pre 103 L FVC-LLN 2.11 L Fev1-Pred 2.08 L Fev1-Pre 1.88 L Fev1-%Pred-Pre 90 L Fev1-LLN 1.55 L Fev6-Pred 2.62 L Fev6-Pre 2.83 L Fev6-%Pred-Pre 108 L Fev6-LLN 2.00 L Bib1nkb-Mkzf 77 % Veg9kxi-Dsc 66 % Knd5pms-%Pred-Pre 86 % Qgf9dlq-GOF 67 % Kqw0ngz-Uxtu 96 % Oat7zzq-Zyq 100 % Ysr7fgw-%Pred-Pre 104 % FEFMax-Pred 5.41 L/E/sec FEFMax-Pre 4.84 L/E/sec FEFMax-%Pred-Pre 89 L/E/sec FEFMax-LLN 3.85 L/E/sec Fci1741-Crfv 1.87 L/E/sec Spm1929-Zdj 1.08 L/E/sec Icl1318-%Pred-Pre 57 L/E/sec Faa1646-XQY 0.74 L/E/sec ExpTime-Pre 5.90 sec Iwi8awp0-Yiyr 80 % Btq5ngm5-Ydl 66 % Nwk9lqu6-%Pred-Pre 83 % Huu6loz0-GPF 71 % Procedures Date Code Description Status 01/09/2021 62533 Office/Outpatient Established Lo w MDM 20-29 Min Completed 01/09/2021 37468 Spirometry Completed Medical Devices Description No Information Available Encounters Type Date Location Provider Dx Diagnosis Office Visit 01/09/2021 3:00p [facility] Pulmonary/Thoracic Lucas Se ars, D.O. J45.50 Severe [...] Ro ry Sears, D.O. Plan of Treatment 05/08/2021 - Lucas Sears, D.O.* H66.91 Acute otitis media * J45.50 Severe persistent asthma, uncomplicated * D84.9 Immunodeficiency, unspecified * * New Labs:* FVL/[place], Ordered: 05/08/21 * Follow up:* Follow up in 4 months with spirometry. Functional Status Description No Information Available Mental Status Description No Information Available Referrals Description No Information Available
--- OUTSIDE RECORDS SUMMARY | 2021-07-14 11:04 | CCD | Continuity of Care Document ---
Author Author Trae KILGORE Organization Unknown Address [address] [place] [address] Phone [phone] Care Team Providers Care Last Puller Name Role Phone Fritz Hamilton MD AUTM [phone] Lucas Rivera DO AUTM [phone] [employer] AUTM [phone] [facility] Orth AUTM [phone] Problems Description No Information Available Social History [...] mouth every 12 hours Unknown Calcium 600+D 236-146xj-Cxuw Tablets bid Unknown Vitamin D3 400Unit Capsules [...] CPT Code Status Date Vaccine Lot # [id number] Given 03/29/2010 Tetanus (Td) Vaccine 7Yrs> Vital [...] Available Procedures Date Code Description Status 04/23/2021 82897 Office/Outpatient Established Mo d MDM 30-39 Min Completed 02/22/2021 42094 Office/Outpatient Established Mo d MDM 30-39 Min Completed 02/03/2021 66664 Office/Outpatient Established Mo d MDM 30-39 Min Completed 01/04/2021 36099 Office/Outpatient Established Lo w MDM 20-29 Min [...]
--- OUTSIDE RECORDS SUMMARY | 2021-07-14 11:05 | CCD ---
Author Author [facility] Organization [facility] Address Unknown Phone Unavailable Care Team Providers Care Quality Cloth Tester Name Role Phone Oakley, Yvonne WAISTLINE JOINER LOCKSTITCH Unavailable Unavailable Oakley, Yvonne WAISTLINE JOINER LOCKSTITCH Unavailable Unavailable Oakley, Yvonne WAISTLINE JOINER LOCKSTITCH Unavailable Unavailable Oakley, Yvonne WAISTLINE JOINER LOCKSTITCH Unavailable Unavailable Oakley, Yvonne WAISTLINE JOINER LOCKSTITCH Unavailable Unavailable Oakley, Yvnone WAISTLINE JOINER LOCKSTITCH Unavailable Unavailable Oakley, Yvonne WAISTLINE JOINER LOCKSTITCH Unavailable Unavailable Oakley, Yvonne WAISTLINE JOINER LOCKSTITCH Unavailable Unavailable Oakley, Yvonne WAISTLINE JOINER LOCKSTITCH Unavailable Unavailable Oakley, Yvonne WAISTLINE JOINER LOCKSTITCH Unavailable Unavailable Oakley, Yvonne WAISTLINE JOINER LOCKSTITCH Unavailable Unavailable Oakley, Yvonne WAISTLINE JOINER LOCKSTITCH Unavailable Unavailable Oakley, Yvonne WAISTLINE JOINER LOCKSTITCH Unavailable Unavailable CATRACHITO RUVALCABA MD Unavailable Unavailable CATRACHITO RUVALCABA MD Unavailable Unavailable CATRACHITO RUVALCABA MD Unavailable Unavailable CATRACHITO RUVALCABA MD Unavailable Unavailable CATRACHITO RUVALCABA MD Unavailable Unavailable CATRACHITO RUVALCABA MD Unavailable Unavailable CATRACHITO RUVALCABA MD Unavailable Unavailable CATRACHITO RUVALCABA MD Unavailable Unavailable CATRACHITO RUVALCABA MD Unavailable Unavailable CATRACHITO RUVALCABA MD Unavailable Unavailable CATRACHITO RUVALCABA MD Unavailable Unavailable CHROSTOWSKI, CATRACHITO MD Unavailable Unavailable CHROSTOWSKI, CATRACHITO MD Unavailable Unavailable CHROSTOWSKI CATRACHITO MD Unavailable Unavailable CHROSTOWSKI, CATRACHITO MD Unavailable Unavailable CHROSTOWSKI, CATRACHITO MD Unavailable Unavailable CHROSTOWSKI, CATRACHITO MD Unavailable Unavailable CHROSTOWSKI, CATRACHITO MD Unavailable Unavailable CHROSTOWSKI, CATRACHITO MD Unavailable Unavailable CHROSTOWSKI, CATRACHITO MD Unavailable Unavailable CHROSTOWSKI, CATRACHITO MD Unavailable Unavailable CHROSTOWSKI, CATRACHITO MD Unavailable Unavailable CHROSTOWSKI, CATRACHITO MD Unavailable Unavailable CHROSTOWSKI, CATRACHITO MD Unavailable Unavailable CHROSTOWSKI, CATRACHITO MD Unavailable Unavailable CHROSTOWSKI, CATRACHITO MD Unavailable Unavailable CHROSTOWSKI, CATRACHITO MD Unavailable Unavailable CHROSTOWSKI, CATRACHITO MD Unavailable Unavailable CHROSTOWSKI, CATRACHITO MD Unavailable Unavailable CHROSTOWSKI, CATRACHITO MD Unavailable Unavailable CHROSTOWSKI, CATRACHITO MD Unavailable Unavailable CHROSTOWSKI, CATRACHITO MD Unavailable Unavailable CHROSTOWSKI, CATRACHITO MD Unavailable Unavailable CHROSTOWSKI, CATRACHITO MD Unavailable Unavailable CHROSTOWSKI, CATRACHITO MD Unavailable Unavailable CHROSTOWSKI, CATRACHITO MD Unavailable Unavailable CHROSTOWSKI, CATRACHITO MD Unavailable Unavailable CHROSTOWSKI, CATRACHITO MD Unavailable Unavailable CHROSTOWSKI, CATRACHITO MD Unavailable Unavailable SEARS, A ELAINE DO Unavailable Unavailable SEARS, A ELAINE DO Unavailable Unavailable SEARS, A ELAINE DO Unavailable Unavailable SEARS, A ELAINE DO Unavailable Unavailable SEARS, A ELAINE DO Unavailable Unavailable SEARS, A ELAINE DO Unavailable Unavailable SEARS, A ELAINE DO Unavailable Unavailable SEARS, A ELAINE DO Unavailable Unavailable SEARS, A ELAINE DO Unavailable Unavailable SEARS, A ELAINE DO Unavailable Unavailable SEARS, A ELAINE DO Unavailable Unavailable SEARS, A ELAINE DO Unavailable Unavailable SEARS, A ELAINE DO Unavailable Unavailable SEARS, A ELAINE DO Unavailable Unavailable SEARS, A ELAINE DO Unavailable Unavailable SEARS, A ELAINE DO Unavailable Unavailable SEARS, A ELAINE DO Unavailable Unavailable SEARS, A ELAINE DO Unavailable Unavailable SEARS, A ELAINE DO Unavailable Unavailable SEARS, A ELAINE DO Unavailable Unavailable SEARS, A ELAINE DO Unavailable Unavailable SEARS, A ELAINE DO Unavailable Unavailable SEARS, A ELAINE DO Unavailable Unavailable SEARS, A ELAINE DO Unavailable Unavailable SEARS, A ELAINE DO Unavailable Unavailable SEARS, A ELAINE DO Unavailable Unavailable SEARS, A ELAINE DO Unavailable Unavailable SEARS, A ELAINE DO Unavailable Unavailable SEARS, A ELAINE DO Unavailable Unavailable SEARS, A ELAINE DO Unavailable Unavailable SEARS, A ELAINE DO Unavailable Unavailable SEARS, A ELAINE DO Unavailable Unavailable SEARS, A ELAINE DO Unavailable Unavailable SEARS, A ELAINE DO Unavailable Unavailable SEARS, A ELAINE DO Unavailable Unavailable SEARS, A ELAINE DO Unavailable Unavailable SEARS, A ELAINE DO Unavailable Unavailable SEARS, A ELAINE DO Unavailable Unavailable SEARS, A ELAINE DO Unavailable Unavailable SEARS, A ELAINE DO Unavailable Unavailable SEARS, A ELAINE DO Unavailable Unavailable SEARS, A ELAINE DO Unavailable Unavailable SEARS, A ELANIE DO Unavailable Unavailable SEARS, A ELAINE DO Unavailable Unavailable SEARS, A ELAINE DO Unavailable Unavailable SEARS, A ELAINE DO Unavailable Unavailable SEARS, A ELAINE DO Unavailable Unavailable SEARS, A ELAINE DO Unavailable Unavailable IDALMIS, MARIA TERESA PA Unavailable Unavailable IDALMIS, MARIA TERESA PA Unavailable Unavailable IDALMIS, MARIA TERESA PA Unavailable Unavailable IDALMIS, MARIA TERESA PA Unavailable Unavailable IDALMIS, MARIA TERESA PA Unavailable Unavailable IDALMIS, MARIA TERESA PA Unavailable Unavailable IDALMIS, MARIA TERESA PA Unavailable Unavailable IDALMIS, MARIA TERESA PA Unavailable Unavailable IDALMIS, MARIA TERESA PA Unavailable Unavailable IDALMIS, MARIA TERESA PA Unavailable Unavailable IDALMIS, MARIA TERESA PA Unavailable Unavailable IDALMIS, MARIA TERESA PA Unavailable Unavailable IDALMIS, MARIA TERESA PA Unavailable Unavailable IDALMIS, MARIA TERESA PA Unavailable Unavailable IDALMIS, MARIA TERESA PA Unavailable Unavailable IDALMIS, MARIA TERESA PA Unavailable Unavailable IDALMIS, MARIA TERESA PA Unavailable Unavailable IDALMIS, MARIA TERESA PA Unavailable Unavailable IDALMIS, MARIA TERESA PA Unavailable Unavailable IDALMIS, MARIA TERESA PA Unavailable Unavailable IDALMIS, MARIA TERESA PA Unavailable Unavailable IDALMIS, MARIA TERESA PA Unavailable Unavailable IDALMIS, MARIA TERESA PA Unavailable Unavailable IDALMIS, MARIA TERESA PA Unavailable Unavailable IDALMIS, MARIA TERESA PA Unavailable Unavailable IDALMIS, MARIA TERESA PA Unavailable Unavailable IDALMIS, MARIA TERESA PA Unavailable Unavailable IDALMIS, MARIA TERESA PA Unavailable Unavailable IDALMIS, MARIA TERESA PA Unavailable Unavailable IDALMIS, MARIA TERESA PA Unavailable Unavailable IDALMIS, MARIA TERESA PA Unavailable Unavailable IDALMIS, MARIA TERESA PA Unavailable Unavailable IDALMIS, MARIA TERESA PA Unavailable Unavailable IDALMIS, MARIA TERESA PA Unavailable Unavailable IDALMIS, MARIA TERESA PA Unavailable Unavailable IDALMIS, MARIA TERESA PA Unavailable Unavailable Gonzalez, M Barratt PA Unavailable Unavailable Gonzalez, M Barratt PA Unavailable Unavailable Gonzalez, M Barratt PA Unavailable Unavailable Gonzalez, M Barratt PA Unavailable Unavailable Gonzalez, M Barratt PA Unavailable Unavailable Gonzalez, M Barratt PA Unavailable Unavailable Gonzalez, M Barratt PA Unavailable Unavailable Gonzalez, M Barratt PA Unavailable Unavailable Gonzalez, M Barratt PA Unavailable Unavailable Gonzalez, M Barratt PA Unavailable Unavailable Gonzalez, M Barratt PA Unavailable Unavailable Gonzalez, M Barratt PA Unavailable Unavailable Gonzalez, M Barratt PA Unavailable Unavailable Gonzalez, M Barratt PA Unavailable Unavailable Gonzalez, M Barratt PA Unavailable Unavailable Gonzalez, M Barratt PA Unavailable Unavailable Gonzalez, M Barratt PA Unavailable Unavailable Gonzalez, M Barratt PA Unavailable Unavailable Gonzalez, M Barratt PA Unavailable Unavailable Gonzalez, M Barratt PA Unavailable Unavailable Gonzalez, M Barratt PA Unavailable Unavailable Gonzalez, M Barratt PA Unavailable Unavailable Gonzalez, M Barratt PA Unavailable Unavailable Gonzalez, M Barratt PA Unavailable Unavailable Gonzalez, M Barratt PA Unavailable Unavailable Gonzalez, M Barratt PA Unavailable Unavailable Gonzalez, M Barratt PA Unavailable Unavailable Gonzalez, M Barratt PA Unavailable Unavailable Gonzalez, M Barratt PA Unavailable Unavailable Meena Tolentino, Kayla Garza MD, FACS Unavailable Unavailable Robledo Tolentino, Kayla Garza MD, FACS Unavailable Unavailable Robledo Tolentino, Kayla Garza MD, FACS Unavailable Unavailable Robledo Tolentino, Kayla Garza MD, FACS Unavailable Unavailable Robledo Tolentino, Kayla Garza MD, FACS Unavailable Unavailable Robledo Tolentino, Kayla Garza MD, FACS Unavailable Unavailable Robledo Tolentino, Kayla Garza MD, FACS Unavailable Unavailable Robledo Tolentino, Kayla Garza MD, FACS Unavailable Unavailable Robledo Tolentino, Kayla Garza MD, FACS Unavailable Unavailable Robledo Tolentino, Kayla Garza MD, FACS Unavailable Unavailable Robledo Tolentino, Kayla Garza MD, FACS Unavailable Unavailable Robledo Tolentino, Kayla Garza MD FACS Unavailable Unavailable Robledo Tolentino, Kayla Garza MD FACS Unavailable Unavailable Robledo Tolentino, Kayla Garza MD FACS Unavailable Unavailable Robledo Tolentino, Kayla Garza MD FACS Unavailable Unavailable Robledo Tolentino, Kayla Garza MD, FACS Unavailable Unavailable Robledo Tolentino, Kayla Garza MD, FACS Unavailable Unavailable Robledo Tolentino, Kayla Garza MD, FACS Unavailable Unavailable Robledo Tolentino, Kayla Garza MD, FACS Unavailable Unavailable Robledo Tolentino, Kayla Garza MD, FACS Unavailable Unavailable Robledo Tolentino, Kayla Garza MD FACS Unavailable Unavailable Robledo Tolentino, Kayla Garza MD, FACS Unavailable Unavailable Robledo Tolentino, Kayla Garza MD, FACS Unavailable Unavailable Robledo Tolentino, Kayla Garza MD, FACS Unavailable Unavailable Robledo Tolentino, Kayla Garza MD, FACS Unavailable Unavailable Robledo Tolentino, Kayla Garza MD, FACS Unavailable Unavailable Robledo Tolentino, Kayla Garza MD, FACS Unavailable Unavailable Robledo Tolentino, Kayla Garza MD, FACS Unavailable Unavailable Robledo Tolentino, Kayla Garza MD, FACS Unavailable Unavailable Robledo Tolentino, Kayla Garza MD, FACS Unavailable Unavailable Robledo Tolentino, Kayla Garza MD, FACS Unavailable Unavailable Robledo Tolentino, Kayla Garza MD, FACS Unavailable Unavailable Robledo Tolentino, Kayla Garza MD, FACS Unavailable Unavailable Robledo Tolentino, Kayla Garza MD, FACS Unavailable Unavailable Robledo Tolentino, Kayla Garza MD, FACS Unavailable Unavailable Robledo Tolentino, Kayla Garza MD, FACS Unavailable Unavailable Robledo Tolentino, Kayla Garza MD, FACS Unavailable Unavailable Robledo Tolentino, Kayla Garza MD, FACS Unavailable Unavailable Robledo Tolentino, Kayla Garza MD, FACS Unavailable Unavailable Vaneenenaam, Barbara Luke MD Unavailable Unavailable Vaneenenaam, Barbara Luke MD Unavailable Unavailable Vaneenenaam, Barbara Luke MD Unavailable Unavailable Vaneenenaam, Barbara Luke MD Unavailable Unavailable Vaneenenaam, Barbara Luke MD Unavailable Unavailable Vaneenenaam, Barbara Luke MD Unavailable Unavailable Vaneenenaam, Barbara Luke MD Unavailable Unavailable Vaneenenaam, Barbara Luke MD Unavailable Unavailable Vaneenenaam, Barbara Luke MD Unavailable Unavailable Vaneenenaam, Barbara Luke MD Unavailable Unavailable Vaneenenaam, Barbara Luke MD Unavailable Unavailable Vaneenenaam, Barbara Luke MD Unavailable Unavailable Vaneenenaam, Barbara Luke MD Unavailable Unavailable Vaneenenaam, Barbara Luke MD Unavailable Unavailable Vaneenenaam, Barbara Luke MD Unavailable Unavailable Vaneenenaam, Barbara Luke MD Unavailable Unavailable Vaneenenaam, Barbara Luke MD Unavailable Unavailable Vaneenenaam, Barbara Luke MD Unavailable Unavailable Vaneenenaam, Barbara Luke MD Unavailable Unavailable Vaneenenaam, Barbara Luke MD Unavailable Unavailable Vaneenenaam, Barbara Luke MD Unavailable Unavailable Vaneenenaam, Barbara Luke MD Unavailable Unavailable Vaneenenaam, Barbara Luke MD Unavailable Unavailable Vaneenenaam, Barbara Luke MD Unavailable Unavailable Vaneenenaam, Barbara Luke MD Unavailable Unavailable Vaneenenaam, Barbara Luke MD Unavailable Unavailable Vaneenenaam, Barbara Luke MD Unavailable Unavailable Vaneenenaam, Barbara Luke MD Unavailable Unavailable Vaneenenaam, Barbara Luke MD Unavailable Unavailable Vaneenenaam, Barbara uLke MD Unavailable Unavailable Vaneenenaam, Barbara Luke MD Unavailable Unavailable Vaneenenaam, Barbara Luke MD Unavailable Unavailable Vaneenenaam, Barbara Luke MD Unavailable Unavailable Barbara Giordano MD Unavailable Unavailable Barbara Giordano MD Unavailable Unavailable Barbara Giordano MD Unavailable Unavailable Barbara Giordano MD Unavailable Unavailable Barbara Giordano MD Unavailable Unavailable Barbara Giordano MD Unavailable Unavailable Barbara Giordano MD Unavailable Unavailable Barbara Giordano MD Unavailable Unavailable Barbara Giordano MD Unavailable Unavailable Barbara Giordano MD Unavailable Unavailable Barbara Giordano MD Unavailable Unavailable Barbara Giordano MD Unavailable Unavailable Barbara Giordano MD Unavailable Unavailable Medina, D Nirmala WAISTLINE JOINER LOCKSTITCH Unavailable Unavailable Medina, D Nirmala WAISTLINE JOINER LOCKSTITCH Unavailable Unavailable Medina, D Nirmala WAISTLINE JOINER LOCKSTITCH Unavailable Unavailable Medina, D Nirmala WAISTLINE JOINER LOCKSTITCH Unavailable Unavailable Medina, D Nirmala WAISTLINE JOINER LOCKSTITCH Unavailable Unavailable Medina, D Nirmala WAISTLINE JOINER LOCKSTITCH Unavailable Unavailable Medina, D Nirmala WAISTLINE JOINER LOCKSTITCH Unavailable Unavailable Medina, D Nirmala WAISTLINE JOINER LOCKSTITCH Unavailable Unavailable Medina, D Nirmala WAISTLINE JOINER LOCKSTITCH Unavailable Unavailable Medina, D Nirmala WAISTLINE JOINER LOCKSTITCH Unavailable Unavailable Medina, D Nirmala WAISTLINE JOINER LOCKSTITCH Unavailable Unavailable Medina, D Nirmala WAISTLINE JOINER LOCKSTITCH Unavailable Unavailable Medina, D Nirmala WAISTLINE JOINER LOCKSTITCH Unavailable Unavailable Medina, D Nirmala WAISTLINE JOINER LOCKSTITCH Unavailable Unavailable Medina, D Nirmala WAISTLINE JOINER LOCKSTITCH Unavailable Unavailable Medina, D Nirmala WAISTLINE JOINER LOCKSTITCH Unavailable Unavailable Medina, D Nirmala WAISTLINE JOINER LOCKSTITCH Unavailable Unavailable Medina, D Nirmala WAISTLINE JOINER LOCKSTITCH Unavailable Unavailable Medina, D Nirmala WAISTLINE JOINER LOCKSTITCH Unavailable Unavailable Medina, D Nirmala WAISTLINE JOINER LOCKSTITCH Unavailable Unavailable Medina, D Nirmala WAISTLINE JOINER LOCKSTITCH Unavailable Unavailable Medina, D Nirmala WAISTLINE JOINER LOCKSTITCH Unavailable Unavailable Medina, D Nirmala WAISTLINE JOINER LOCKSTITCH Unavailable Unavailable Medina, D Nirmala WAISTLINE JOINER LOCKSTITCH Unavailable Unavailable Medina, D Nirmala WAISTLINE JOINER LOCKSTITCH Unavailable Unavailable Medina, D Nirmala WAISTLINE JOINER LOCKSTITCH Unavailable Unavailable Medina, D Nirmala WAISTLINE JOINER LOCKSTITCH Unavailable Unavailable Medina, D Nirmala WAISTLINE JOINER LOCKSTITCH Unavailable Unavailable Medina, D Nirmala WAISTLINE JOINER LOCKSTITCH Unavailable Unavailable Medina, D Nirmala WAISTLINE JOINER LOCKSTITCH Unavailable Unavailable Medina, D Nirmala WAISTLINE JOINER LOCKSTITCH Unavailable Unavailable Medina, D Nirmala WAISTLINE JOINER LOCKSTITCH Unavailable Unavailable Medina, D Nirmala WAISTLINE JOINER LOCKSTITCH Unavailable Unavailable Medina, D Nirmala WAISTLINE JOINER LOCKSTITCH Unavailable Unavailable Medina, D Nirmala WAISTLINE JOINER LOCKSTITCH Unavailable Unavailable Medina, D Nirmala WAISTLINE JOINER LOCKSTITCH Unavailable Unavailable Medina, D Nirmala WAISTLINE JOINER LOCKSTITCH Unavailable Unavailable Medina, D Nirmala WAISTLINE JOINER LOCKSTITCH Unavailable Unavailable Medina, D Nirmala WAISTLINE JOINER LOCKSTITCH Unavailable Unavailable Medina, D Nirmala WAISTLINE JOINER LOCKSTITCH Unavailable Unavailable Medina, D Nirmala WAISTLINE JOINER LOCKSTITCH Unavailable Unavailable Medina, D Nirmala WAISTLINE JOINER LOCKSTITCH Unavailable Unavailable Medina, D Nirmala WAISTLINE JOINER LOCKSTITCH Unavailable Unavailable Medina, D Nirmala WAISTLINE JOINER LOCKSTITCH Unavailable Unavailable Medina, D Nirmala WAISTLINE JOINER LOCKSTITCH Unavailable Unavailable Medina, D Nirmala WAISTLINE JOINER LOCKSTITCH Unavailable Unavailable Medina, D Nirmala WAISTLINE JOINER LOCKSTITCH Unavailable Unavailable Medina, D Nirmala WAISTLINE JOINER LOCKSTITCH Unavailable Unavailable Medina, D Nirmlaa WAISTLINE JOINER LOCKSTITCH Unavailable Unavailable Medina, D Nirmala WAISTLINE JOINER LOCKSTITCH Unavailable Unavailable Medina, D Nirmala WAISTLINE JOINER LOCKSTITCH Unavailable Unavailable Medina, D Nirmala WAISTLINE JOINER LOCKSTITCH Unavailable Unavailable Medina, D Nirmala WAISTLINE JOINER LOCKSTITCH Unavailable Unavailable Re-disclosure Warning The records that you are about to access may contain information from federally-assisted alcohol or drug abuse programs. If such information is present, then the following federally mandated warning applies: This information has been disclosed to you from records protected by federal confidentiality rules (42 CFR part 2). The federal rules prohibit you from making any further disclosure of this information unless further disclosure is expressly permitted by the written consent of the person to whom it pertains or as otherwise permitted by 42 CFR part 2. A general authorization for the release of medical or other information is NOT sufficient for this purpose. The Federal rules restrict any use of the information to criminally investigate or prosecute any alcohol or drug abuse patient.The records that you are about to access may contain highly sensitive health information, the redisclosure of which is protected by Article 27-F of the [facility] Public Health law. If you continue you may have access to information: Regarding HIV / AIDS; Provided by facilities licensed or operated by the [facility] Office of Mental Health; or Provided by the [facility] Office for People With Developmental Disabilities. If such information is present, then the following [facility] mandated warning applies: This information has been disclosed to you from confidential records which are protected by state law. State law prohibits you from making any further disclosure of this information without the specific written consent of the person to whom it pertains, or as otherwise permitted by law. Any unauthorized further disclosure in violation of state law may result in a fine or correction sentence or both. A general authorization for the release of medical or other information is NOT sufficient authorization for further disc losure. Family History Family Member Name Family Member Gender Family Member Status Date o f Status Description Data Source(s) Unknown Unknown Problem [facility] ([facility]) Unknown Unknown Problem [facility] ([facility]) mother Unknown Female Problem [facility] ([facility]) Encounters Encounter Providers Location Date Indications Data Source(s ) Outpatient Attender: CATRACHITO RUVALCABA MD Main Office 07/09/2021 11:00:00 AM EDT [facility] ([facility]) Outpatient Attender: Nirmala Medina NP NEPLORRAINE-JASON 06/30/2021 1 2:00:00 AM EDT [facility] [place] [address] [address] 05/20/2021 12:00:00 AM EDT eCW1 ([facility]) [place] [address] [address] 05/12/2021 12:00:00 AM EDT eCW1 ([facility]) Outpatient Attender: ELAINE Toussaint/Stef/Jarrod/[place] 05/08/2021 08:30:00 AM EDT [facility] ([facility]) Outpatient Attender: MARIA TERESA silverman 04/23/2021 08:05:00 AM EDT [facility] ([facility]) Outpatient<td ID="encounterTypeDescripti onID0">6 Month Follow-Up</td><td>Greg Gaona MD, FACS</td><td>Greg Gaona MD [facility]</td><td>04/17/2021</td><td>1:29PM</td><td>2:10PM</td><td><content ID="encounterDiagnosisID0-0">Cataract Senile Nuclear</content></td> Attender: Greg Tolentino MD, FACS Greg Gaona [facility] 04/17/2021 01:29:00 PM EDT - 04/17/2021 02:10:00 PM EDT [facility] ELA (Greg arenas MD [facility]) [facility] [place] [address] [address] [address] 03/18/2021 12:00:00 AM EDT eCW1 ([facility]) Outpatient Attender: MARIA TERESA Bowles ry 02/22/2021 03:00:00 PM EDT [facility] ([facility] Outpatient [address] [facility] [id number] 02/20/2021 12:00:00 AM EDT eCW1 ([facility]) Outpatient Attender: MARIA TERESA Bowles ry 02/03/2021 03:50:00 PM EDT [facility] ([facility]) Outpatient Attender: CATRACHITO RUVALCABA MD Main Office 01/21/2021 03:15:00 PM EDT [facility] ([facility]) Outpatient Attender: ELAINE Toussaint/Stef/Jarrod/Reincal 01/09/2021 03:00:00 PM EDT [facility] ([facility] Outpatient Attender: Yvonne lizama 01/04/2021 08:40:00 AM EDT [facility] ([facility]) Outpatient Attender: Laura DASH Physical Therapy 03:00:00 PM EDT [facility] ([facility]) Outpatient Attender: CATRACHITO RUVALCABA MD Main Office 11/15/2020 07:30:00 AM EST [facility] ([facility]) Office Visit Attender: Laura DASH Physical Therapy 02:45:00 PM EST [facility] ([facility]) Office Visit, Est Pt., Level 4 PC [address] [place] [address] 11/11/2020 12:00:00 AM EST eCW1 ([facility]) Office Visit Attender: Laura DASH Physical Therapy 02:00:00 PM EST [facility] ([facility]) Office Visit Attender: Laura DASH Physical Therapy 10:15:00 AM EST [facility] ([facility] ) Outpatient<td ID="encounterTypeDescripti onID3">5 Month Follow-Up</td><td>Greg Gaona MD, FACS</td><td>Greg Gaona MD [facility]</td><td>10/07/2020</td><td>2:40PM</td><td>3:32PM</td><td><content ID="encounterDiagnosisID3-0">Cataract Senile Nuclear</content>, <content ID="encounterDiagnosisID3-1">Borderline Glaucoma Steroid Responders Both Eyes</content></td> Attender: Greg Tolentino MD, [facility] 10/07/2020 02:40:00 PM EST - 10/07/2020 03:32:00 PM ES T Cataract Senile NuclearBorderline Glaucoma Steroid Responders Both Eyes ELA (Greg Tolentino MD [facility]) Cataract Senile Nuclear Borderline Glaucoma Steroid Responders B oth Eyes Outpatient<td ID="encounterTypeDescripti onID2">Rx Refills/Changes</td><td>Greg Gaona MD, FACS</td><td></td><td>03/20/2021</td><td>10/07/2020 10:32AM</td><td>10/07/2020 11:59PM</td><td></td> Attender: Greg Tolentino MD, FACS 10/07/2020 10:32:00 AM EST - 10/07/2020 11:59:00 PM EST ELA (Greg Tolentino MD [facility]) <td ID="encounterTypeDescriptionID1">Rx Refills/Changes</td><td>Greg Tolentino MD, FACS</td><td></td><td>03/25/2021</td><td>10/07/2020 8:37AM</td><td>10/07/2020 11:59PM</td><td></td>Outpatient Attender: Greg oTlentino MD, FACS 10/07/2020 08:37:00 AM EST - 10/07/2020 11:59:00 PM EST ELA (Greg Tolentino MD [facility]) Office Visit Attender: Laura DASH Physical Therapy 12:45:00 PM EST [facility] ([facility]) Outpatient Attender: ELAINE JAMISON DO Roxie/Lincoln/Jarrod/Reindl 09/24/2020 02:00:00 PM EST [facility] ([facility]) Outpatient Attender: CATRACHITO RUVALCABA MD Main Office 09/23/2020 02:00:00 PM EST [facility] OFFICE OUTPATIENT NEW 30 MINUTES Attender: Barbara Johnson am, MD Physical Therapy 09/09/2020 07:00:00 AM EST [facility] ([facility]) Outpatient Attender: Yvonne lizama 09/08/2020 07:45:00 AM EST [facility] ([facility], [facility]) Unknown [address] [place] [address], [facility] [id number] 08/29/2020 12:00:00 AM EST eCW1 (Formerly [facility]) Outpatient Attender: ELAINE JAMISON DO Roxie/Lincoln/Jarrod/Reindl 08/27/2020 09:00:00 AM EST MEDENT ([facility], ) Outpatient Attender: ELAINE JAMISON DO Roxie/Lincoln/Jarrod/Reindl 07/10/2020 03:45:00 PM EDT MEDENT ([facility], ) Outpatient Attender: Nirmala Medina NP NEPEUC-NEPESUR 06/19 12:00:00 AM EDT - 06/19/2020 10:38:26 AM EDT [facility] Outpatient Attender: MARIA TERESA silverman 06/13/2020 05:10:00 PM EDT MEDENT ([facility] <td ID="encounterTypeDescriptionID4">Rx Refills/Changes</td><td>Greg Tolentino MD, [facility]</td><td></td><td>07/25/2020</td><td>06/12/2020 4:44PM</td><td>06/12/2020 11:59PM</td><td></td>Outpatient Attender: Greg Tolentino MD, [facility]EN 06/12/2020 04:44:00 PM EDT - 06/12/2020 11:59:00 PM EDT ELA (Greg Tolentino MD [facility]) <td ID="encounterTypeDescriptionID5">6 M ont follow up with testing</td><td>Greg Gaona MD, [facility]</td><td>Greg Gaona MD [facility]</td><td>06/12/2020</td><td>3:01PM</td><td>3:35PM</td><td><content ID="encounterDiagnosisID5-0">Borderline Glaucoma Steroid Responders Both Eyes</content>, <content ID="encounterDiagnosisID5-1">Diabetes Mellitus Type 2 Without Complication</content>, <content ID="encounterDiagnosisID5-2">Assessment of Taking Medication For Diabetes Long-term Use of Oral Hypoglycemics</content>, <content ID="encounterDiagnosisID5-3">Cataract Senile Nuclear</content></td> Outpatient Attender: Greg Tolentino MD, MAUREEN Gaona MD [facility] 06/12/2020 03:01:00 PM EDT - 06/12/2020 03:35:00 PM EDT Cataract Senile NuclearCataract Senile NuclearAssessment of Taking Medication For Diabetes Long- term Use of Oral HypoglycemicsAssessment of Taking Medication For Diabetes Long- term Use of Oral HypoglycemicsBorderline Glaucoma Steroid Responders Both EyesBorderline Glaucoma Steroid Responders Both EyesDiabetes Mellitus Type 2 Without ComplicationDiabetes Mellitus Type 2 Without Complication ELA (Greg Tolentino MD [facility]) Cataract Senile Nuclear Cataract Senile Nuclear Assessment of Taking Medication For Diab etes Long-term Use of Oral Hypoglycemics Assessment of Taking Medication For Diab etes Long-term Use of Oral Hypoglycemics Borderline Glaucoma Steroid Responders B oth Eyes Borderline Glaucoma Steroid Responders B oth Eyes Diabetes Mellitus Type 2 Without Complic ation Diabetes Mellitus Type 2 Without Complic ation Outpatient Attender: CATRACHITO RUVALCABA MD Main Office 05/22/2020 03:30:00 PM EDT ANGELIT[facility] ([facility]) Immunizations Vaccine Date Status Description Data Source(s) COVID-19 dose #2 given elsewhere Unspecified 11/10/2020 02:5 4:00 PM EST completed eCW1 ([facility]ly [facility]) COVID-19 dose #2 given elsewhere Unspecified 11/10/2020 02:5 4:00 PM EST completed eCW1 ([facility]) COVID-19 dose #2 given elsewhere Unspecified 11/10/2020 02:5 4:00 PM EST completed eCW1 ([facility]) COVID-19 dose #2 given elsewhere Unspecified 11/10/2020 02:5 4:00 PM EST completed eCW1 ([facility]) COVID-19 dose #2 given elsewhere Unspecified 11/10/2020 02:5 4:00 PM EST completed eCW1 ([facility]ly [facility]) COVID-19 VACCINE Pfizer 11/10/2020 12:00:00 AM EST completed [employer] Vaccine Series Complete: YESThis Data wa s Submitted to [facility] Via [employer]. COVID-19 VACCINE, MRNA, [id number], LNP-S (PFIZER)/PF 11/10/19 12:00:00 AM EST completed [facility] COVID-19 VACCINE, MRNA, [id number], LNP-S (PFIZER)/PF 10/20/19 12:00:00 AM EST completed [facility] COVID-19 dose #1 given elsewhere Unspecified 10/19/2020 02:5 5:00 PM EST completed eCW1 ([facility]ly [facility]) COVID-19 dose #1 given elsewhere Unspecified 10/19/2020 02:5 5:00 PM EST completed eCW1 ([facility]ly [facility]) COVID-19 dose #1 given elsewhere Unspecified 10/19/2020 02:5 5:00 PM EST completed eCW1 ([facility]) COVID-19 dose #1 given elsewhere Unspecified 10/19/2020 02:5 5:00 PM EST completed eCW1 ([facility]) COVID-19 dose #1 given elsewhere Unspecified 10/19/2020 02:5 5:00 PM EST completed eCW1 ([facility]) COVID-19 VACCINE Pfizer 10/19/2020 12:00:00 AM EST completed [employer] Vaccine Series Complete: NOThis Data was Submitted to [facility] Via [employer]. [employer] in 2011. IIV4 07/25/2020 09:30:00 AM EST completed MEDENT ([facility], ) Tdap 07/02/2020 03:30:00 PM EDT completed e CW1 ([facility]) Tdap 07/02/2020 03:30:00 PM EDT completed e CW1 ([facility]) Tdap 07/02/2020 03:30:00 PM EDT completed e CW1 ([facility]) Tdap 07/02/2020 03:30:00 PM EDT completed e CW1 ([facility]) Tdap 07/02/2020 03:30:00 PM EDT completed e CW1 ([facility]) pneumococcal polysaccharide PPV23 07/02/2020 03:28:00 PM EDT comple dolores eCW1 ([facility]) pneumococcal polysaccharide PPV23 07/02/2020 03:28:00 PM EDT comple dolores eCW1 ([facility]) pneumococcal polysaccharide PPV23 07/02/2020 03:28:00 PM EDT comple dolores eCW1 ([facility]) pneumococcal polysaccharide PPV23 07/02/2020 03:28:00 PM EDT comple dolores eCW1 ([facility]) pneumococcal polysaccharide PPV23 07/02/2020 03:28:00 PM EDT comple dolores eCW1 ([facility]) DIPHTHERIA,PERTUSSIS(ACELLULAR),TETANUS VACCINE 07/02/2020 1 2:00:00 AM EDT completed [facility] PNEUMOCOCCAL 23-VALENT POLYSACCHARIDE VACCINE 07/02/2020 12: 00:00 AM EDT completed [facility] INFLUENZA VIRUS VACCINE QUADRIVAL SPLIT 2020-21(65 YR UP)/PF 05/20/2020 12:00:00 AM EDT completed [facility] Medications Medication Brand Name Start Date Product Form Dose Route Admi nistrative Instructions Pharmacy Instructions Status Indications Reaction Description Data Source(s) 1 % 05/14/2021 12:00:00 AM EDT drops,suspension 5 INSTILL 1 DROP INTO THE LEFT EYE FOUR TIMES A DAY STARTING AFTER SURGERY INSTILL 1 DROP INTO THE LEFT EYE FOUR TIMES A DAY STARTING AFTER SURGERY SOLD: 07/11/2021 [facility] 1 % 05/14/2021 12:00:00 AM EDT drops,suspension 5 INSTILL 1 DROP INTO THE LEFT EYE FOUR TIMES A DAY STARTING AFTER SURGERY INSTILL 1 DROP INTO THE LEFT EYE FOUR TIMES A DAY STARTING AFTER SURGERY SOLD: 05/16/2021 [facility] Ketorolac Tromethamine 5 MG/ML Ophthalmic Solution 0.5 % KET OROLAC TROMETHAMINE 05/13/2021 12:00:00 AM EDT drops 10 INSTI LL 1 DROP INTO THE LEFT EYE FOUR TIMES A DAY STARTING 3 DAYS PRIOR TO SURGERY INSTILL 1 DROP INTO THE LEFT EYE FOUR TIMES A DAY STARTING 3 DAYS PRIOR TO SURGERY SOLD: 05/16/2021 [facility] moxifloxacin 5 MG/ML Ophthalmic Solution 0.5 % MOXIFLOXACIN HCL 05/13/2021 12:00:00 AM EDT drops 3 INSTILL 1 DROP I NTO THE LEFT EYE FOUR TIMES A DAY STARTING THREE DAYS PRIOR TO SURGERY INSTILL 1 DROP INTO THE LEFT EYE FOUR TI MES A DAY STARTING THREE DAYS PRIOR TO SURGERY SOLD: 06/23/2021 [facility] moxifloxacin 5 MG/ML Ophthalmic Solution 0.5 % MOXIFLOXACIN HCL 05/13/2021 12:00:00 AM EDT drops 3 INSTILL 1 DROP I NTO THE LEFT EYE FOUR TIMES A DAY STARTING THREE DAYS PRIOR TO SURGERY INSTILL 1 DROP INTO THE LEFT EYE FOUR TI MES A DAY STARTING THREE DAYS PRIOR TO SURGERY SOLD: 05/16/2021 [facility] Ketorolac Tromethamine 5 MG/ML Ophthalmic Solution 0.5 % KET OROLAC TROMETHAMINE 05/13/2021 12:00:00 AM EDT drops 10 INSTI LL 1 DROP INTO THE LEFT EYE FOUR TIMES A DAY STARTING 3 DAYS PRIOR TO SURGERY INSTILL 1 DROP INTO THE LEFT EYE FOUR TIMES A DAY STARTING 3 DAYS PRIOR TO SURGERY SOLD: 07/11/2021 [facility] 20 mg 04/23/2021 12:00:00 AM EDT tablet 10 TAKE TWO TABLETS BY MOUTH EVERY DAY FOR 5 DAYS TAKE TWO TABLETS BY MOUTH EVERY DAY FOR 5 DAYS SOLD: [facility] 300 mg 04/23/2021 12:00:00 AM EDT capsule 14 TAKE ONE CAPSULE BY MOUTH TWICE A DAY FOR 7 DAYS TAKE ONE CAPSULE BY MOUTH TWICE A DAY FOR 7 DAYS SOLD: 04/23/2021 [facility] cefdinir 300 MG Oral Capsule Cefdinir 04/23/2021 12:00:00 AM EDT ORAL active MEDENT ([facility]) Prednisone 20 MG Oral Tablet Prednisone 04/23/2021 12:00:00 AM EDT ORAL active MEDENT ([facility]) latanoprost 0.05 MG/ML Ophthalmic Soluti on Latanoprost 0.005% Ophthalmic Solution Latanoprost 0.005% Ophthalmic Solution 03/25/2021 12:00:00 AM EDT 1 active latanoprost 0.05 MG/ ML Ophthalmic Solution ELA (Greg Tolentino MD [facility]) bimatoprost 0.1 MG/ML Ophthalmic Solutio n [Lumigan] Lumigan 0.01% Ophthalmic Solution Lumigan 0.01% Ophthalmic Solution 03/20/2021 12:00:00 AM EDT 1 aborted bimatoprost 0.1 MG/ML Ophthalmic Solution [Lumigan] ELA (Greg Tolentino MD [facility]) 0.5 mg 03/18/2021 12:00:00 AM EDT tablet 30 TAKE ONE TABLET BY MOUTH TWO TIMES A DAY NEEDED FOR ANXIETY MAXIMUM DAILY DOSE = 2 TABLETS TAKE ONE TABLET BY MOUTH TWO TIMES A DAY NEEDED FOR ANXIETY MAXIMUM DAILY DOSE = 2 TABLETS SOLD: 03/20/2021 [facility] 160-4.5 mcg/actuation 03/03/2021 12:00:00 AM EDT HFA aerosol inhaler 10 INHALE TWO PUFFS BY MOUTH TWICE A DAY INHALE TWO PUFFS BY MOUTH TWICE A DAY SOLD: 03/05/2021 [facility] 160-4.5 mcg/actuation 03/03/2021 12:00:00 AM EDT HFA aerosol inhaler 10 INHALE TWO PUFFS BY MOUTH TWICE A DAY INHALE TWO PUFFS BY MOUTH TWICE A DAY SOLD: 06/29/2021 [facility] 160-4.5 mcg/actuation 03/03/2021 12:00:00 AM EDT HFA aerosol inhaler 10 INHALE TWO PUFFS BY MOUTH TWICE A DAY INHALE TWO PUFFS BY MOUTH TWICE A DAY SOLD: 04/09/2021 [facility] 160-4.5 mcg/actuation 03/03/2021 12:00:00 AM EDT HFA aerosol inhaler 10 INHALE TWO PUFFS BY MOUTH TWICE A DAY INHALE TWO PUFFS BY MOUTH TWICE A DAY SOLD: 06/05/2021 [facility] 20 mg 02/22/2021 12:00:00 AM EDT tablet 10 TAKE TWO TABLETS BY MOUTH DAILY FOR 5 DAYS TAKE TWO TABLETS BY MOUTH DAILY FOR 5 DAYS SOLD: 02/22/2021 [facility] Prednisone 20 MG Oral Tablet Prednisone 02/22/2021 12:00:00 AM EDT ORAL completed MEDENT ([facility], [facility]) cefdinir 300 MG Oral Capsule Cefdinir 02/03/2021 12:00:00 AM EDT ORAL completed MEDENT ([facility], [facility]) 300 mg 02/03/2021 12:00:00 AM EDT capsule 14 TAKE ONE CAPSULE BY MOUTH TWICE A DAY FOR 7 DAYS TAKE ONE CAPSULE BY MOUTH TWICE A DAY FOR 7 DAYS SOLD: 02/03/2021 [facility] 20 mg 01/04/2021 12:00:00 AM EDT tablet 10 TAKE ONE TABLET BY MOUTH TWICE A DAY FOR 5 DAYS TAKE ONE TABLET BY MOUTH TWICE A DAY FOR 5 DAYS SOLD: 2020 [facility] Prednisone 20 MG Oral Tablet Prednisone 01/04/2021 12:00:00 AM EDT completed MEDENT ([facility], [facility]) 5 mg 12/09/2020 12:00:00 AM EDT tablet 15 TAKE ONE TABLET BY MOUTH EVERY OTHER DAY TAKE ONE TABLET BY MOUTH EVERY OTHER DAY SOLD: 06/23/2021 [facility] 5 mg 12/09/2020 12:00:00 AM EDT tablet 15 TAKE ONE TABLET BY MOUTH EVERY OTHER DAY TAKE ONE TABLET BY MOUTH EVERY OTHER DAY SOLD: 04/15/2021 [facility] 5 mg 12/09/2020 12:00:00 AM EDT tablet 15 TAKE ONE TABLET BY MOUTH EVERY OTHER DAY TAKE ONE TABLET BY MOUTH EVERY OTHER DAY SOLD: 03/05/2021 [facility] 5 mg 12/09/2020 12:00:00 AM EDT tablet 15 TAKE ONE TABLET BY MOUTH EVERY OTHER DAY TAKE ONE TABLET BY MOUTH EVERY OTHER DAY SOLD: 12/10/2020 [facility] 5 mg 12/09/2020 12:00:00 AM EDT tablet 15 TAKE ONE TABLET BY MOUTH EVERY OTHER DAY TAKE ONE TABLET BY MOUTH EVERY OTHER DAY SOLD: 05/24/2021 [facility] 5 mg 12/09/2020 12:00:00 AM EDT tablet 15 TAKE ONE TABLET BY MOUTH EVERY OTHER DAY TAKE ONE TABLET BY MOUTH EVERY OTHER DAY SOLD: 01/29/2021 [facility] 0.3 mg/0.3 mL 10/28/2020 12:00:00 AM EST auto-injector 2 INJECT INTRAMUSCULARLY ONCE NEEDED FOR ANAPHYLAXIS INJECT INTRAMUSCULARLY ONCE NEEDED FOR ANAPHYLAXIS SOLD: 10/30/2020 [facility] 1.25 mcg/actuation 10/18/2020 12:00:00 AM EST mist 4 INHALE TWO PUFFS BY MOUTH EVERY DAY INHALE TWO PUFFS BY MOUTH EVERY DAY SOLD: 10/21/2020 [facility] 1.25 mcg/actuation 10/18/2020 12:00:00 AM EST mist 4 INHALE TWO PUFFS BY MOUTH EVERY DAY INHALE TWO PUFFS BY MOUTH EVERY DAY SOLD: 03/05/2021 [facility] Epinephrine Epinephrine 10/10/2020 12:00:00 AM EST active MEDENT ([facility]) bimatoprost 0.1 MG/ML Ophthalmic Solutio n [Lumigan] Lumigan 0.01% Ophthalmic Solution Lumigan 0.01% Ophthalmic Solution 10/07/2020 12:00:00 AM EST 1 aborted bimatoprost 0.1 MG/ML Ophthalmic Solution [Lumigan] ELA (Greg Tolentino MD [facility]) Hizentra Hizentra 10/04/2020 12:00:00 AM EST SUBCUTANEOUS active MEDENT ([facility]) Hizentra Hizentra 10/04/2020 12:00:00 AM EST compl eted MEDENT ([facility]) 10 mg 09/29/2020 12:00:00 AM EST tablet 20 TAKE TWO TABLETS BY MOUTH ONCE DAILY FOR 5 DAYS, THEN ONE TABLET DAILY FOR 5 DAYS, THEN 1/2 TABLET DAILY FOR 5 DAYS, THEN TO USUAL DOSE OF 5MG BY MOUTH EVERY OTHER DAY TAKE TWO TABLETS BY MOUTH ONCE DAILY FOR 5 DAYS, THEN ONE TABLET DAILY FOR 5 DAYS, THEN 1/2 TABLET DAILY FOR 5 DAYS, THEN TO USUAL DOSE OF 5MG BY MOUTH EVERY OTHER DAY SOLD: 09/30/2020 [facility] Sulfamethoxazole 800 MG / Trimethoprim 160 MG Oral Tablet [B actrim] Bactrim DS 09/24/2020 12:00:00 AM EST ORAL completed MEDENT ([facility], ) Prednisone 10 MG Oral Tablet Prednisone 09/24/2020 12:00:00 AM EST completed MEDENT ([facility], ) Sulfamethoxazole 800 MG / Trimethoprim 160 MG Oral Tab let 800-160 mg SULFAMETHOXAZOLE/TRIMETHOPRIM 09/24/2020 12:00:00 AM EST tablet 28 TAKE ONE TABLET BY MOUTH TWICE A DAY TAKE ONE TABLET BY MOUTH TWICE A DAY SOLD: 09/25/2020 [facility] Sulfamethoxazole 800 MG / Trimethoprim 160 MG Oral Tab let 800-160 mg SULFAMETHOXAZOLE/TRIMETHOPRIM 09/24/2020 12:00:00 AM EST tablet 28 TAKE ONE TABLET BY MOUTH TWICE A DAY TAKE ONE TABLET BY MOUTH TWICE A DAY SOLD: 10/21/2020 [facility] 10 mg 09/18/2020 12:00:00 AM EST tablet 20 TAKE 2 TABLETS (20MG) BY MOUTH ONCE DAILY FOR 5 DAYS, THEN 1 TABLET (10MG) DAILY FOR 5 DAYS THEN 1/2 TABLET (5MG) DAILY FOR 5 DAYS THEN STOP TAKE 2 TABLETS (20MG) BY MOUTH ONCE GASPER Y FOR 5 DAYS, THEN 1 TABLET (10MG) DAILY FOR 5 DAYS THEN 1/2 TABLET (5MG) DAILY FOR 5 DAYS THEN STOP SOLD: 09/18/2020 Jennifer robles Prednisone 10 MG Oral Tablet Prednisone 09/18/2020 12:00:00 AM EST ORAL completed MEDENT ([facility], ) 500 mg 08/29/2020 12:00:00 AM EST tablet 14 TAKE ONE TABLET BY MOUTH ON WEDNESDAY , WEDNESDAY AND WEDNESDAY TAKE ONE TABLET BY MOUTH ON WEDNESDAY , Wed AND WEDNESDAY SOLD: 09/30/2020 [facility] 500 mg 08/29/2020 12:00:00 AM EST tablet 14 TAKE ONE TABLET BY MOUTH ON WEDNESDAY , WEDNESDAY AND WEDNESDAY TAKE ONE TABLET BY MOUTH ON WEDNESDAY , Wed AND WEDNESDAY SOLD: 02/13/2021 [facility] 500 mg 08/29/2020 12:00:00 AM EST tablet 14 TAKE ONE TABLET BY MOUTH ON WEDNESDAY , WEDNESDAY AND WEDNESDAY TAKE ONE TABLET BY MOUTH ON WEDNESDAY , Wed AND WEDNESDAY SOLD: 03/17/2021 [facility] 500 mg 08/29/2020 12:00:00 AM EST tablet 14 TAKE ONE TABLET BY MOUTH ON WEDNESDAY , WEDNESDAY AND WEDNESDAY TAKE ONE TABLET BY MOUTH ON WEDNESDAY , Wed AND WEDNESDAY SOLD: 09/01/2020 [facility] 500 mg 08/29/2020 12:00:00 AM EST tablet 14 TAKE ONE TABLET BY MOUTH ON WEDNESDAY , WEDNESDAY AND WEDNESDAY TAKE ONE TABLET BY MOUTH ON WEDNESDAY , Wed AND WEDNESDAY SOLD: 12/10/2020 [facility] 500 mg 08/29/2020 12:00:00 AM EST tablet 14 TAKE ONE TABLET BY MOUTH ON WEDNESDAY , WEDNESDAY AND WEDNESDAY TAKE ONE TABLET BY MOUTH ON WEDNESDAY , Wed AND WEDNESDAY SOLD: 04/21/2021 [facility] 500 mg 08/29/2020 12:00:00 AM EST tablet 14 TAKE ONE TABLET BY MOUTH ON WEDNESDAY , WEDNESDAY AND WEDNESDAY TAKE ONE TABLET BY MOUTH ON WEDNESDAY , Wed AND WEDNESDAY SOLD: 11/05/2020 [facility] 500 mg 08/29/2020 12:00:00 AM EST tablet 14 TAKE ONE TABLET BY MOUTH ON WEDNESDAY , WEDNESDAY AND WEDNESDAY TAKE ONE TABLET BY MOUTH ON WEDNESDAY , Wed AND WEDNESDAY SOLD: 01/12/2021 [facility] 500 mg 08/29/2020 12:00:00 AM EST tablet 14 TAKE ONE TABLET BY MOUTH ON WEDNESDAY , WEDNESDAY AND WEDNESDAY TAKE ONE TABLET BY MOUTH ON WEDNESDAY , Wed AND WEDNESDAY SOLD: 06/23/2021 [facility] 500 mg 08/29/2020 12:00:00 AM EST tablet 14 TAKE ONE TABLET BY MOUTH ON WEDNESDAY , WEDNESDAY AND WEDNESDAY TAKE ONE TABLET BY MOUTH ON WEDNESDAY , Wed AND WEDNESDAY SOLD: 05/24/2021 [facility] Prednisone 5 MG Oral Tablet Prednisone 08/27/2020 12:00:00 AM EST active MEDENT ([facility], ) Prednisone 10 MG Oral Tablet Prednisone 08/09/2020 12:00:00 AM EST ORAL completed MEDENT ([facility], ) Sulfamethoxazole 800 MG / Trimethoprim 160 MG Oral Tablet [B actrim] Bactrim DS 08/09/2020 12:00:00 AM EST ORAL completed MEDENT ([facility], ) 10 mg 08/09/2020 12:00:00 AM EST tablet 53 TAKE 4 TABLETS BY MOUTH ONCE DAILY FOR 5 DAYS, THEN 3 TABLETS DAILY FOR 5 DAYS, THEN 2 TABLETS DAILY FOR 5 DAYS, THEN 1 TABLET DAILY FOR 5 DAYS, THEN 1/2 TABLET DAILY FOR 5 DAYS TAKE 4 TABLETS BY MOUTH ONCE DAILY FOR 5 DAYS, THEN 3 TABLETS DAILY FOR 5 DAYS, THEN 2 TABLETS DAILY FOR 5 DAYS, THEN 1 TABLET DAILY FOR 5 DAYS, THEN 1/2 TABLET DAILY FOR 5 DAYS SOLD: 08/09/2020 [facility] Sulfamethoxazole 800 MG / Trimethoprim 160 MG Oral Tab let 800-160 mg SULFAMETHOXAZOLE/TRIMETHOPRIM 08/09/2020 12:00:00 AM EST tablet 10 TAKE ONE TABLET BY MOUTH TWICE A DAY TAKE ONE TABLET BY MOUTH TWICE A DAY SOLD: 08/14/2020 [facility] Sulfamethoxazole 800 MG / Trimethoprim 160 MG Oral Tab let 800-160 mg SULFAMETHOXAZOLE/TRIMETHOPRIM 08/09/2020 12:00:00 AM EST tablet 10 TAKE ONE TABLET BY MOUTH TWICE A DAY TAKE ONE TABLET BY MOUTH TWICE A DAY SOLD: 08/09/2020 [facility] 150 mg 07/29/2020 12:00:00 AM EST tablet 1 TAKE ONE TABLET BY MOUTH FOR 1 DOSE - CAN REPEAT IN 2 DAYS IF NO MOVEMENT TAKE ONE TABLET BY MOUTH FOR 1 DOSE - CAN REPEAT IN 2 DAYS IF NO MOVEMENT SOLD: 07/29/2020 [facility] Fluconazole 150 MG Oral Tablet [Diflucan] Diflucan 07/29/2020 1 2:00:00 AM EST ORAL completed MEDENT ([facility], ) 150 mg 07/29/2020 12:00:00 AM EST tablet 1 TAKE ONE TABLET BY MOUTH FOR 1 DOSE - CAN REPEAT IN 2 DAYS IF NO MOVEMENT TAKE ONE TABLET BY MOUTH FOR 1 DOSE - CAN REPEAT IN 2 DAYS IF NO MOVEMENT SOLD: 08/21/2020 [facility] 0.01 % 07/26/2020 12:00:00 AM EST drops 2 INSTILL 1 DROP IN EACH EYE AT NIGHT TIME INSTILL 1 DROP IN EACH EYE AT NIGHT TIME SOLD: 07/28/2020 [facility] bimatoprost 0.1 MG/ML Ophthalmic Solutio n [Lumigan] Lumigan 0.01% Ophthalmic Solution Lumigan 0.01% Ophthalmic Solution 07/25/2020 12:00:00 AM EST 1 aborted bimatoprost 0.1 MG/ML Ophthalmic Solution [Lumigan] ELA (Greg Tolentino MD [facility]) 1 mg 07/16/2020 12:00:00 AM EDT tablet 90 TAKE ONE TABLET BY MOUTH EVERY DAY TAKE ONE TABLET BY MOUTH EVERY DAY SOLD: 07/25/2020 [facility] 1 mg 07/16/2020 12:00:00 AM EDT tablet 90 TAKE ONE TABLET BY MOUTH EVERY DAY TAKE ONE TABLET BY MOUTH EVERY DAY SOLD: 10/07/2020 [facility] 1 mg 07/16/2020 12:00:00 AM EDT tablet 90 TAKE ONE TABLET BY MOUTH EVERY DAY TAKE ONE TABLET BY MOUTH EVERY DAY SOLD: 04/21/2021 [facility] 1 mg 07/16/2020 12:00:00 AM EDT tablet 90 TAKE ONE TABLET BY MOUTH EVERY DAY TAKE ONE TABLET BY MOUTH EVERY DAY SOLD: 01/12/2021 [facility] 300 mg 07/10/2020 12:00:00 AM EDT capsule 20 TAKE ONE CAPSULE BY MOUTH TWICE A DAY TAKE ONE CAPSULE BY MOUTH TWICE A DAY SOLD: 07/10/2020 [facility] Prednisone 10 MG Oral Tablet Prednisone 07/10/2020 12:00:00 AM EDT ORAL completed MEDENT ([facility], ) 10 mg 07/10/2020 12:00:00 AM EDT tablet 53 TAKE 4 TABLETS BY MOUTH ONCE DAILY FOR 5 DAYS, THEN 3 TABLETS DAILY FOR 5 DAYS, THEN 2 TABLETS DAILY FOR 5 DAYS, THEN 1 TABLET DAILY FOR 5 DAYS, THEN 1/2 TABLET DAILY FOR 5 DAYS TAKE 4 TABLETS BY MOUTH ONCE DAILY FOR 5 DAYS, THEN 3 TABLETS DAILY FOR 5 DAYS, THEN 2 TABLETS DAILY FOR 5 DAYS, THEN 1 TABLET DAILY FOR 5 DAYS, THEN 1/2 TABLET DAILY FOR 5 DAYS SOLD: 07/10/2020 [facility] cefdinir 300 MG Oral Capsule Cefdinir 07/10/2020 12:00:00 AM EDT ORAL completed MEDENT ([facility], ) . UNIT 07/02/2020 12:00:00 AM EDT Injectable 1 DIRECTED DIRECTED SOLD: 07/02/2020 [facility] . UNIT 07/02/2020 12:00:00 AM EDT Injectable 1 DIRECTED DIRECTED SOLD: 07/02/2020 [facility] 20 mg 06/13/2020 12:00:00 AM EDT tablet 10 TAKE TWO TABLETS BY MOUTH DAILY FOR 5 DAYS TAKE TWO TABLETS BY MOUTH DAILY FOR 5 DAYS SOLD: 06/13/2020 [facility] Prednisone 20 MG Oral Tablet Prednisone 06/13/2020 12:00:00 AM EDT ORAL completed MEDENT ([facility], [facility]) 750 mg 06/12/2020 12:00:00 AM EDT tablet extended release 24 hr 14 TAKE TWO TABLETS BY MOUTH EVERY DAY WITH EVENING MEAL TAKE TWO TABLETS BY MOUTH EVERY DAY WITH EVENING MEAL SOLD: 06/12/2020 [facility] Azithromycin 500 MG Oral Tablet azithromycin (ZITHROMA X) 500 MG tablet azithromycin (ZITHROMAX) 500 MG tablet 05/25/2020 12:00:00 AM EDT active TAKE ONE TABLET BY MOUTH ON AY WEDNESDAY AND WEDNESDAY [facility] . UNIT 05/20/2020 12:00:00 AM EDT Injectable 1 US E DIRECTED USE DIRECTED SOLD: 05/20/2020 [facility] 2.5 mg /3 mL (0.083 %) 05/01/2020 12:00:00 AM EDT solu tion for nebulization 300 INHALE THE CONTENTS OF ONE VIAL VIA NEBU LIZER EVERY 4 HOURS INHALE THE CONTENTS OF ONE VIAL VIA NEBULIZER EVERY 4 HOURS SOLD: 09/18/2020 [facility] 160-4.5 mcg/actuation 03/29/2020 12:00:00 AM EDT HFA aerosol inhaler 10 INHALE TWO PUFFS BY MOUTH TWICE A DAY INHALE TWO PUFFS BY MOUTH TWICE A DAY SOLD: 07/10/2020 [facility] 160-4.5 mcg/actuation 03/29/2020 12:00:00 AM EDT HFA aerosol inhaler 10 INHALE TWO PUFFS BY MOUTH TWICE A DAY INHALE TWO PUFFS BY MOUTH TWICE A DAY SOLD: 05/27/2020 [facility] 160-4.5 mcg/actuation 03/29/2020 12:00:00 AM EDT HFA aerosol inhaler 10 INHALE TWO PUFFS BY MOUTH TWICE A DAY INHALE TWO PUFFS BY MOUTH TWICE A DAY SOLD: 11/12/2020 [facility] 160-4.5 mcg/actuation 03/29/2020 12:00:00 AM EDT HFA aerosol inhaler 10 INHALE TWO PUFFS BY MOUTH TWICE A DAY INHALE TWO PUFFS BY MOUTH TWICE A DAY SOLD: 08/21/2020 [facility] 160-4.5 mcg/actuation 03/29/2020 12:00:00 AM EDT HFA aerosol inhaler 10 INHALE TWO PUFFS BY MOUTH TWICE A DAY INHALE TWO PUFFS BY MOUTH TWICE A DAY SOLD: 01/12/2021 [facility] latanoprost 0.05 MG/ML Ophthalmic Soluti on Latanoprost 0.005% Ophthalmic Solution Latanoprost 0.005% Ophthalmic Solution 2020 12:00:00 AM EDT 1 aborted latanoprost 0.05 MG/ ML Ophthalmic Solution [place] (Greg Tolentino MD [facility]) [id number] 01/25/2020 12:00:00 AM EDT liquid 180 SWISH WITH 1 TEASPOONFUL (5ML) EVERY 2-3 HOURS NEEDED SWISH WITH 1 TEASPOONFUL (5ML) EVERY 2-3 HOURS NEEDED SOLD: 08/26/2020 [facility] [id number] 01/25/2020 12:00:00 AM EDT liquid 180 SWISH WITH 1 TEASPOONFUL (5ML) EVERY 2-3 HOURS NEEDED SWISH WITH 1 TEASPOONFUL (5ML) EVERY 2-3 HOURS NEEDED SOLD: 07/30/2020 [facility] 1.25 mcg/actuation 12/19/2019 12:00:00 AM EDT mist 4 INHALE 2 PUFFS BY MOUTH ONCE DAILY INHALE 2 PUFFS BY MOUTH ONCE DAILY SOLD: 07/02/2020 [facility] 1.25 mcg/actuation 12/19/2019 12:00:00 AM EDT mist 4 INHALE 2 PUFFS BY MOUTH ONCE DAILY INHALE 2 PUFFS BY MOUTH ONCE DAILY SOLD: 05/20/2020 [facility] bimatoprost 0.1 MG/ML Ophthalmic Solutio n [Lumigan] Lumigan 0.01% Ophthalmic Solution Lumigan 0.01% Ophthalmic Solution 12/11/2019 12:00:00 AM EDT 1 aborted bimatoprost 0.1 MG/ML Ophthalmic Solution [Lumigan] ELA (Greg Tolentino MD [facility]) 5 mg 12/04/2019 12:00:00 AM EDT tablet 15 TAKE ONE TABLET BY MOUTH EVERY OTHER DAY TAKE ONE TABLET BY MOUTH EVERY OTHER DAY SOLD: 06/12/2020 [facility] 5 mg 12/04/2019 12:00:00 AM EDT tablet 15 TAKE ONE TABLET BY MOUTH EVERY OTHER DAY TAKE ONE TABLET BY MOUTH EVERY OTHER DAY SOLD: 07/25/2020 [facility] olopatadine 2 MG/ML Ophthalmic Solution [Pataday] Pataday 0.2% Ophthalmic Solution Pataday 0.2% Ophthalmic Solution 09/15/2019 12:00:00 AM EST 1 aborted olopatadine 2 MG/ML Ophthalmic S olution [Pataday] ELA (Greg Tolentino MD [facility]) Azithromycin 500 MG Oral Tablet AZITHROMYCIN 08/02/2019 12:00:00 AM EST tablet 12 TAKE ONE TABLET BY MOUTH ON WEDNESDAY , Wed AND WEDNESDAY TAKE ONE TABLET BY MOUTH ON WEDNESDAY , WEDNESDAY AND WEDNESDAY SOLD: 05/27/2020 [facility] Azithromycin 500 MG Oral Tablet AZITHROMYCIN 08/02/2019 12:00:00 AM EST tablet 12 TAKE ONE TABLET BY MOUTH ON WEDNESDAY , Wed AND WEDNESDAY TAKE ONE TABLET BY MOUTH ON WEDNESDAY , WEDNESDAY AND WEDNESDAY SOLD: 06/23/2020 [facility] Lactobacillus (ACIDOPHILUS PROBIOTIC PO) drug or medication Oral aborted Take by mouth 2 (two) times a da y [facility] Insurance Providers Payer name Policy type / Coverage type Policy ID Covered constitution party ID Covered constitution party's relationship to berumen Policy Berumen Plan Information [facility] [id number] Spouse [id number] [facility] [id number] Spo UFU [id number] [facility] [id number] [facility] [id number] Self [id number] [employer] [id number] [place] [id number] [employer] [id number] [place] [id number] POM[employer] [id number] Self [id number] [place]/307 [id number] HU2 [id number] [place]/307 [id number] HU2 [id number] [employer] [id number] SP [id number] [place] P[place]/307 [id number] HU2 [id number] [employer] [id number] SP [id number] UMR [id number] UMR [id number] [place] [id number] R [facility] [id number] SP [id number] [place] PPO [place]/307 [id number] HU2 [id number] [place]/307 [id number] HU2 [id number] [place]/307 [id number] HU2 [id number] [facility] [id number] SP [id number] r [facility] [id number] Self [id number] ANSI-Commercial [id number] Excellus BCBS Medigap Part B [id number] [id number] Family Dependent [id number] [employer] Medigap Part B [id number] [id number] Self [id number] [place]/307 [id number] HU2 [id number] BCBS/Ex[employer] Medigap Part B [id number] 2...[id number] Family Dependent [id number] Umr/Uhc/[employer]om[employer] Health Maintenance Organization (O) [id number] Self [id number] BCBS/[employer] Medigap Part B [id number] Family Dependent [id number] Umr/Uhc/[employer] Health Maintenance Organization (HMO) [id number] Self [id number] Excell[employer] BS Medigap Part B [id number] Family Dependent [id number] ANSI-Commercial [id number] ANSI-Commercial [id number] ANSI-Commercial [id number] ANSI-Commercial [id number] ANSI-Commercial [id number] ANSI-Commercial [id number] BCBS/[employer] Medigap Part B [id number] Family Dependent [id number] Umr/Uhc/[employer] Health Maintenance Organization (HMO) [id number] Self [id number] ANSI-Commercial [id number] ANSI-Commercial [id number] P[employer] [id number] SP [id number] POM[employer] [id number] SP [id number] BCBS/Excell[employer] Medigap Part B [id number] [id number] Family Dependent [id number] [employer] Commercial [id number] [id number] Self [id number] BCBS/[employer] Medigap Part B [id number] Family Dependent [id number] [employer] Commercial [id number] Self [id number] BCBS/[employer] Medigap Part B [id number] Family Dependent [id number] [employer] Commercial [id number] Self [id number] POM[employer] [id number] SP [id number] BCBS [place] PPO 302/307 [id number] HU2 [id number] [employer] [id number] SP [id number] P[employer] [id number] SP [id number] [employer] Commercial [id number] Self BCBS/Excellus Commercial [id number] Family Dependent POMCO PPO O [id number] S [id number] [employer] [facility] [place] Medigap Part B [id number] Family Depend ent [employer] Commercial [id number] Self POMCO PPO O [id number] S [id number] BCBS OF [place] 306/8 B [id number] P [id number] BS/W/Id#Prefix/W ALL #'S Commercial [id number] [facility] Depende nt [facility] [id number] SP [id number] BCBS [place] PPO 302/307 [id number] HU2 [id number] BCBS [place] PPO 302/307 [id number] HU2 [id number] BCBS of [facility] Other 0 [id number] Family D ependent Junior Manuel 0 [employer] [place] Other 0 [id number] Self 0 UMR O [id number] S [id number] EXCELLUS BCBS B [id number] S UFU [id number] SELF PAY ONLY [id number] SP [id number] BCBS of [facility] Other 0 [id number] Family D ependent Junior Manuel 0 [employer] [place] Other 0 [id number] Self 0 ANSI-Commercial [id number] ANSI-Commercial [id number] ANSI-Commercial [id number] ANSI-Commercial [id number] [facility] Part B [id number] Family Dependent [id number] [facility] Health Maintenance Organization ([facility]) [id number] Self [id number] [facility] Part B [id number] Family Dependent [id number] [facility] Health Maintenance Organization ([facility]) [id number] Self [id number] ANSI-Commercial [id number] Problems, Conditions, and Diagnoses Code Display Name Description Problem Type Effective Dates Data Source(s) H25.013 [id number] Cortical age-related cataract of both eyes Problem 05/12/2021 12:00:00 AM EDT eCW1 ([facility]) H66.91 Acute otitis media Acute otitis media Problem 12:00:00 AM EDT MEDENT ([facility], ) D84.9 [id number] Immunodeficiency Problem 11/11/2020 12:00:00 AM EST eCW1 ([facility]) D84.9 Immunodeficiency disorder Immunodeficiency disorder Pr oblem 09/24/2020 12:00:00 AM EST MED[facility] ([facility], ) 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 Problem 09/23/2020 12:00:00 AM ES T MED[facility] ([facility]) Surgeries/Procedures Procedure Description Date Indications Data Source(s) OFFICE OUTPATIENT VISIT 25 MINUTES 07/09/2021 12:00:00 AM EDT MED[facility] ([facility]) OFFICE OUTPATIENT VISIT 40 MINUTES 07/09/2021 12:00:00 AM EDT [facility] ([facility]) Spirometry 05/08/2021 12:00:00 AM EDT M EDENT ([facility]) OFFICE OUTPATIENT VISIT 25 MINUTES 05/08/2021 12:00:00 AM EDT MED[facility] ([facility]) OFFICE OUTPATIENT VISIT 25 MINUTES 04/23/2021 12:00:00 AM EDT MEDENT ([facility]) OFFICE OUTPATIENT VISIT 25 MINUTES 02/22/2021 12:00:00 AM EDT MEDENT ([facility]) OFFICE OUTPATIENT VISIT 25 MINUTES 02/03/2021 12:00:00 AM EDT MED[facility] ([facility], [facility]) OFFICE OUTPATIENT VISIT 15 MINUTES 01/21/2021 12:00:00 AM EDT [facility] ([facility]) OFFICE OUTPATIENT VISIT 25 MINUTES 01/21/2021 12:00:00 AM EDT [facility] ([facility]) Spirometry 01/09/2021 12:00:00 AM EDT M EDENT ([facility]) OFFICE OUTPATIENT VISIT 15 MINUTES 01/09/2021 12:00:00 AM EDT MED[facility] ([facility]) OFFICE OUTPATIENT VISIT 15 MINUTES 01/04/2021 12:00:00 AM EDT [facility] ([facility]) RADEX ANKLE COMPLETE MINIMUM 3 VIEWS 12/13/2020 12:00: 00 AM EDT MED[facility] ([facility]) RADEX ANKLE COMPLETE MINIMUM 3 VIEWS 11/14/2020 12:00: 00 AM EST [facility] ([facility]) RADEX ANKLE COMPLETE MINIMUM 3 VIEWS 10/31/2020 12:00: 00 AM EST [facility] ([facility]) RADEX ANKLE COMPLETE MINIMUM 3 VIEWS 10/16/2020 12:00: 00 AM EST MED[facility] ([facility] ) Surgical / procedural history : 2 C-Sect ions, Cholecystectomy, Lumpectomy - 02/2014, Bilateral Mastectomy - 04/19/2014, Chemo since 10/08/14 Surgical / procedural history : 2 C-Sections, Cholecystectomy, Lumpectomy - 02/2014, Bilateral Mastectomy - 04/19/2014, Chemo since 10/08/14 10/07/2020 12:00:00 AM EST ELA (Greg Tolentino MD [facility]) Comprehensive eye exam established patient Comprehensi ve eye exam established patient 10/07/2020 12:00:00 AM EST ELA (Bandar Tolentino MD [facility]) RADEX ANKLE COMPLETE MINIMUM 3 VIEWS 09/27/2020 12:00: 00 AM EST MED[facility] ([facility] ) Spirometry 09/24/2020 12:00:00 AM EST M EDENT ([facility], ) FX Lateral Malleolus (Distal Fibula) W/O Manipulation 09/09/2020 12:00:00 AM EST MED[facility] ([facility] ) Apply Splint Short Leg (Calf To Foot) 09/08/2020 12:00 :00 AM EST MED[facility] ([facility]) Spirometry 08/27/2020 12:00:00 AM EST M EDENT ([facility], ) Spirometry 08/09/2020 12:00:00 AM EST M EDENT ([facility], ) Spirometry 07/10/2020 12:00:00 AM EDT M EDENT ([facility], ) Scodi, optic nerve with interpretation and report Scod i, optic nerve with interpretation and report 06/12/2020 12:00:00 AM EDT HONEY Y (Greg Tolentino MD [facility]) Comprehensive eye exam established patient (Signi/Sep Eval. & Man.) Comprehensive eye exam established patient (Signi/Sep Eval. & Man.) 06/12/2020 12:00:00 AM EDT ELA (Greg Tolentino MD [facility]) Comprehensive eye exam established patient (25) Compre hensive eye exam established patient (25) 06/12/2020 12:00:00 AM EDT ELA (Greg Tolentino MD [facility]) Scodi, optic nerve with interpretation and report Scod i, optic nerve with interpretation and report 06/12/2020 12:00:00 AM EDT HONEY Rojas (Greg Tolentino MD [facility]) Results ID Date Data Source [id number] 06/30/2021 10:56:57 AM EDT [facility] INFORMATIONPatient MRN Name Date of Age Gend*PT [id number] Ke Jackson 1955 66 years F ---PT Location Admission Date/Time Visit ID Attending Provider --- --- --- --- EPI ID CSN Admitting Provider [id number] ---06/30/21 Ke Jackson [id number] female 66 yearsThis is a patient of Dr. MulliganDiagnosis/Surgical Pathology 03/2014:RIGHT breast grade 3 invasive ductal carcinoma 2.5 cm, grade 3 DCIS, sentinelnode biopsy +0/1, but with mastectomy had +1/2 nodes, ER/CT/H2N+, [id number], StageII Treatment:Bilateral Mastectomy, declined reconstruction, Dr Evansemotherapy with THC, completed one year course of Herceptin 07/2015, Dr Gouldstrozole started 2014, Dr Frey. In 2016 she had a nodule noted at the lateral end of mastectomy scar on left,b iopsy was benign. Left axillary/upper chest wall lipoma; this was followed for2 years by ultrasound without change, she no longer requires imaging for this.Current Meds:Current Outpatient Medications: anastrozole (ARIMIDEX) 1 MG tablet, Take 1 mg by mouth daily, Disp: , Rfl: 1 atorvastatin (LIPITOR) 10 MG tablet, Take 5 mg by mouth, Disp: , Rfl: azithromycin (ZITHROMAX) 500 MG tablet, TAKE ONE TABLET BY MOUTH ON AND WEDNESDAY, Disp: , Rfl: budesonide (PULMICORT) 0.5 MG/2ML nebulizer solution, Inhale 0.5 mg, Disp: ,Rfl: Calcium Carbonate (CALCIUM 600 PO), Take 600 mg by mouth 2 (two) times a day, Disp: , Rfl: cholecalciferol (VITAMIN D3) 400 UNITS CAPS, Take 1,000 Units by mouth 2(two) times a day , Disp: , Rfl: Epinastine HCl 0.05 % ophthalmic solution, instill 1 drop into both eyestwice a day, Disp: , Rfl: 0 LORazepam (ATIVAN) 0.5 MG tablet, Take 0.5 mg by mouth, Disp: , Rfl: LUMIGAN 0.01 % SOLN, , Disp: , Rfl: 0 metFORMIN (GLUCOPHAGE) 500 MG tablet, Take 500 mg by mouth 2 (two) times aday with meals, Disp: , Rfl: montelukast (SINGULAIR) 10 MG tablet, , Disp: , Rfl: 0 omeprazole (PRILOSEC) 40 MG capsule, Take 40 mg by mouth, Disp: , Rfl: predniSONE (DELTASONE) 5 MG tablet, Take 5 mg by mouth daily, Disp: , Rfl: SPIRIVA RESPIMAT 2.5 MCG/ACT AERS, , Disp: , Rfl: 0 SYMBICORT 160-4.5 MCG/ACT inhaler, , Disp: , Rfl: 0 VENTOLIN HFA 108 (90 BASE) MCG/ACT inhaler, , Disp: , Rfl: 0 Misc. Devices MISC, Use as directed. Compression sleeve and gauntlet ICD #457.1, v49.89 & 174.9, Disp: , Rfl: Misc. Devices MISC, Use as directed. Mastectomy bra and prosthesis ( 2 ),Disp: , Rfl:Allergies:AllergiesAllergen Reactions Amoxicillin-Pot Clavulanate Rash RashPast Medical History:Diagnosis Date Anxiety 10/05/2014 Bronchitis, chronic 10/05/2014 Diabetes mellitus 10/05/2014 drug induced Enlarged lymph nodes in armpit 05/06/2016 Hypertension 10/05/2014 Recurrent upper respiratory infection (URI) 03/09/2014 RIGHT breast grade 3 invasive ductal carcinoma 2.5 cm, grade 3 DCIS, sentinelnode biopsy +0/1, but with mastectomy had +1/2 nodes, ER/CT/H2N+, [id number], StageII 2013 S/P bilateral mastectomy, 201310/19/2014 Surgery follow-up examination 04/30/2014 Wound seroma 04/30/2014Family HistoryProblem Relation Age of Onset Lung cancer Mother Heart disease FatherSocial HistorySocioeconomic History Marital status: Spouse name: Not on file Number of children: Not on file Years of education: Not on file Highest education level: Not on fileOccupational History Not on fileTobacco Use Smoking status: Former Smoker Packs/day: 1.00 Years: 6.00 Pack years: 6.00 Types: Cigarettes Quit date: 09/20/1986 Years since quittin.8 Smokeless tobacco: Never UsedSubstance and Sexual Activity Alcohol use: Yes Comment: occasional Drug use: No Sexual activity: Not on fileOther Topics Concern Bike Helmet Not Asked History of Falls Not Asked Self-Exams Not Asked Caffeine Concern Not Asked Hobby Hazards Not Asked Sleep Concern Not Asked Daily Calcium Supplement Not Asked Lead Exposure Not Asked Special Diet Not Asked Daily Vitamin D Supplement Not Asked Service Not Asked Stress Concern Not Asked Domestic Violence in home Not Asked Radon exposure Not Asked Weight Concern Not Asked Exercise Not Asked Seat Belt Not Asked Well water Not Asked Firearms in home Not Asked History of Breast Feeding Not AskedSocial History Narrative Not on fileSocial Determinants of HealthFinancial Resource Strain: Difficulty of Paying Living Expenses:Food Insecurity: Worried About Running Out of Food in the Last Year: Ran Out of Food in the Last Year:Transportation Needs: Lack of Transportation (Medical): Lack of Transportation (Non-Medical):Physical Activity: Days of Exercise per Week: Minutes of Exercise per Session:Stress: Feeling of Stress :Social Connections: Frequency of Communication with Friends and Family: Frequency of Social Gatherings with Friends and Family: Attends Religion Services: Active Member of Clubs or Organizations: Attends Club or Organization Meetings: Marital Status:Intimate Partner Violence: Fear of Current or Ex-Partner: Emotionally Abused: Physically Abused: Sexually Abused:Review of SystemsReview of SystemsConstitutional: Negative.HENT: Negative.Eyes: Negative.Respiratory: Negative.Cardiovascular: Negative.Gastrointestinal: Negative.Endocrine: Negative.Genitourinary: Negative.Musculoskeletal: Negative.Skin: Negative.Allergic/Immunologic: Negative.Neurological: Negative.Hematological: Negative.Psychiatric/Behavioral: Negative.Vitals: 06/30/21 1038BP: 146/90Pulse: 80Resp: 18Temp: 96.8 FExam:Const: Appears pleasant. No signs of apparent distress present. Alert andoriented.Head/Face: Atraumatic, normocephalic and no lesions or masses.Eyes: Conjunctivae pink.No icterus of the sclerae bilaterally.ENMT: Oral mucosa: pink and moist with no lesions.Neck: Supple. Palpation reveals no lymphadenopathy, swelling or tenderness.Trachea midline.Resp: Respirations are regular. Lungs are clear bilaterally.CV: Rate is regular. Rhythm is regular.Breasts: Breast exam was performed while patient was in a supine position and isabelle sitting postion. Mastectomy scars show/s no evidence of subcutaneous masses onthe right. On the lateral edge of the left mastectomy site is a stable noduleconsistent with her lipoma. Axillae: Axillae are normal to palpationbilaterally, but no lymphadenopathy of the axillae.Musculo: Walks with a normal gait for age. Upper Extremities: Full ROMbilaterally. Lower Extremities: Full ROM bilaterally.Skin: No jaundice, lesion, rash.Neuro: Upper Extremities: Lower Extremities: Neuro reveals no focal deficits.1. Infiltrating ductal carcinoma of right breast2. Benign neoplasm of left breast3. History of mastectomy, bilateralAssessment: Patient has a benign exam with no signs/symptoms of recurrence.Follow-up: The patient will follow-up in 1 year no testing needed. Name Value Range Interpretation Code Description Data Lian rce(s) Supporting Document(s) ID Date Data Source [id number] 06/11/2021 09:35:00 AM EDT [facility] Name Value Range Interpretation Code Description Data [facility] rce(s) Supporting Document(s) SARS-CoV-2 (COVID-19) RNA [Presence] in Respiratory specimen by CATA with probe detection Not Detected [facility] This lab was ordered by [facility] and reported by [employer]. ID Date Data Source [id number] 05/08/2021 08:27:00 AM EDT MEDENT ([facility], ) Name Value Range Interpretation Code Description Data Lian rce(s) Supporting Document(s) PDFReport Laboratory test result MEDENT ([facility], ) FVC-Pre 3.09 L MEDENT ([facility]) FVC-Pred 2.71 L MED[facility] ([facility], ) FVC-%Pred-Pre 114 L MEDENT ([facility], ) FVC-LLN 2.08 L MED[facility] ([facility], ) Fev1-Pred 2.05 L MED[facility] ([facility], ) Fev1-Pre 2.20 L MED[facility] ([facility]) Fev1-%Pred-Pre 107 L MEDENT ([facility]) Fev1-LLN 1.52 L MED[facility] ([facility], ) Fev6-Pred 2.59 L [facility] ([facility]) Fev6-%Pred-Pre 118 L MED[facility] ([facility]) Fev6-Pre 3.05 L [facility] ([facility]) Fev6-LLN 1.97 L [facility] ([facility]) Etx4ccs-Rhel 76 % MED[facility] ([facility]) Vyy9uzx-%Pred-Pre 93 % MEDENT ([facility]) Gdj9hlt-KQC 67 % [facility] ([facility]) Lgq3kag-Mbv 71 % [facility] ([facility]) Vow3avf-Noxx 96 % [facility] ([facility]) Iwe6mqe-Jjz 99 % [facility] ([facility]) Hqv1jhm-%Pred-Pre 103 % MED[facility] ([facility]) FEFMax-Pred 5.34 L/E/sec MED[facility] ([facility], ) FEFMax-Pre 4.90 L/E/sec MED[facility] ([facility]) FEFMax-%Pred-Pre 91 L/E/sec MED[facility] ([facility]) FEFMax-LLN 3.78 L/E/sec [facility] ([facility]) Tpy1761-Fjmv 1.82 L/E/sec MED[facility] ([facility]) Omh5912-%Pred-Pre 80 L/E/sec [facility] ([facility]) Isv8953-Wzq 1.46 L/E/sec MED[facility] ([facility]) Htw2696-CKR 0.70 L/E/sec [facility] ([facility], ) ExpTime-Pre 6.79 sec MED[facility] ([facility]) Sfh1dmp5-%Pred-Pre 90 % [facility] ([facility]) Flz7tgo0-Zvit 79 % MED[facility] ([facility]) Ylu4bcs0-Sjj 72 % MED[facility] ([facility]) Caw6bis4-DXM 71 % [facility] ([facility]) ID Date Data Source [id number] 02/23/2021 09:18:00 AM EDT [facility] ([facility] Name Value Range Interpretation Code Description Data Lian rce(s) Supporting Document(s) IgE [Mass/volume] in Serum 54.1 IU/ml Normal (applie s to non-numeric results) [facility] ([facility]) ID Date Data Source [id number] 02/23/2021 09:18:00 AM EDT [facility] ([facility] Name Value Range Interpretation Code Description Data Lian rce(s) Supporting Document(s) Laboratory test finding (navigational concept) 136.0 mg/dL 7 0-400 Normal (applies to non-numeric results) [facility] ([facility] Laboratory test finding (navigational concept) 1210 mg/dL 6 81-1648 Normal (applies to non-numeric results) [facility] Laboratory test finding (navigational concept) 92.0 mg/dL 4 0-230 Normal (applies to non-numeric results) [facility] ID Date Data Source [id number] 02/23/2021 09:18:00 AM EDT [facility] ([facility]) Name Value Range Interpretation Code Description Data Lian rce(s) Supporting Document(s) Laboratory test finding (navigational concept) 4.96 10 4 .00-5.40 Normal (applies to non-numeric results) [facility] Laboratory test finding (navigational concept) 14.2 g/dL 1 2.0-15.5 Normal (applies to non-numeric results) [facility] Laboratory test finding (navigational concept) 8.9 10 4 .0-10.0 Normal (applies to non-numeric results) [facility] ([facility]) Laboratory test finding (navigational concept) 28.6 pg 2 7.0-33.0 Normal (applies to non-numeric results) [facility] Laboratory test finding (navigational concept) 88.5 fl 8 0.0-96.0 Normal (applies to non-numeric results) [facility] Laboratory test finding (navigational concept) 43.9 % 3 6.0-47.0 Normal (applies to non-numeric results) [facility] ([facility]) Laboratory test finding (navigational concept) 289 10 1 50-450 Normal (applies to non-numeric results) [facility] Laboratory test finding (navigational concept) 13.2 % 1 1.5-14.5 Normal (applies to non-numeric results) [facility] ([facility]) Laboratory test finding (navigational concept) 32.3 g/dL 3 2.0-36.5 Normal (applies to non-numeric results) [facility] Laboratory test finding (navigational concept) 76.8 % 3 6.0-66.0 Above high normal [facility] ([facility] ) Laboratory test finding (navigational concept) 15.4 % 2 4.0-44.0 Below low normal [facility] ([facility] ) Laboratory test finding (navigational concept) 6.5 % 2 .0-8.0 Normal (applies to non-numeric results) [facility] Laboratory test finding (navigational concept) 0.3 % 0 -3.0 Normal (applies to non-numeric results) [facility] Laboratory test finding (navigational concept) 0.8 % 0 .0-3.0 Normal (applies to non-numeric results) [facility] Laboratory test finding (navigational concept) 0.2 % 0 .0-1.0 Normal (applies to non-numeric results) [facility] Laboratory test finding (navigational concept) 0.0 % 0 -0 Normal (applies to non- numeric results) [facility] Laboratory test finding (navigational concept) 1.4 10 1.5-5.0 Below low normal [facility] ([facility]) Laboratory test finding (navigational concept) 6.9 10 1 .5-8.5 Normal (applies to non-numeric results) [facility] ([facility]) Laboratory test finding (navigational concept) 0.0 10 0 .0-0.2 Normal (applies to non-numeric results) [facility] ([facility]) Laboratory test finding (navigational concept) 0.6 10 0 .0-0.8 Normal (applies to non-numeric results) [facility] ([facility]) Laboratory test finding (navigational concept) 0.1 10 0 .0-0.5 Normal (applies to non-numeric results) [facility] ([facility]) ID Date Data Source [id number] 01/09/2021 02:48:00 PM EDT [facility] ([facility], ) Name Value Range Interpretation Code Description Data Lian rce(s) Supporting Document(s) PDFReport Laboratory test result [facility] ([facility], ) FVC-Pre 2.83 L [facility] ([facility], ) FVC-Pred 2.74 L [facility] ([facility], ) FVC-%Pred-Pre 103 L [facility] ([facility], ) FVC-LLN 2.11 L [facility] ([facility], ) Fev1-Pre 1.88 L [facility] ([facility], ) Fev1-Pred 2.08 L [facility] ([facility], ) Fev1-%Pred-Pre 90 L [facility] ([facility], ) Fev1-LLN 1.55 L [facility] ([facility], ) Fev6-Pre 2.83 L [facility] ([facility], ) Fev6-Pred 2.62 L [facility] ([facility]) Fev6-%Pred-Pre 108 L [facility] ([facility]) Fev6-LLN 2.00 L [facility] ([facility]) Mhe6aio-Xuuz 77 % [facility] ([facility]) Tnu7mrd-Uuv 66 % [facility] ([facility]) Afn1zqo-%Pred-Pre 86 % [facility] ([facility]) Lob6juj-SZS 67 % [facility] ([facility]) Yzp0yyp-Rtbq 96 % [facility] ([facility]) Kgr4ark-Hwk 100 % [facility] ([facility]) Mtt4hru-%Pred-Pre 104 % [facility] ([facility]) FEFMax-Pred 5.41 L/E/sec [facility] ([facility]) FEFMax-Pre 4.84 L/E/sec [facility] ([facility]) FEFMax-%Pred-Pre 89 L/E/sec [facility] ([facility]) Hmw5978-Blac 1.87 L/E/sec [facility] ([facility]) FEFMax-LLN 3.85 L/E/sec [facility] ([facility]) Hor4002-Mor 1.08 L/E/sec [facility] ([facility]) Vcl4795-MIS 0.74 L/E/sec [facility] ([facility]) Lhh7929-%Pred-Pre 57 L/E/sec [facility] ([facility]) Kwk4tvr5-Yrwr 80 % [facility] ([facility]) ExpTime-Pre 5.90 sec [facility] ([facility]) Pfh9kis2-%Pred-Pre 83 % [facility] ([facility]) Zpd1fxd5-Yyv 66 % [facility] ([facility]) Orc7zzz0-RRU 71 % [facility] ([facility]) ID Date Data Source [id number] 09/25/2020 12:00:00 AM EST [facility] Name Value Range Interpretation Code Description Data Lian rce(s) Supporting Document(s) SARS coronavirus 2 Ag Negative [facility] This lab was ordered by [facility] and reported by [facility]. ID Date Data Source [id number] 09/24/2020 02:46:00 PM EST [facility] ([facility], ) Name Value Range Interpretation Code Description Data Lian rce(s) Supporting Document(s) PDFReport Laboratory test result [facility] ([facility], ) FVC-Pre 2.27 L [facility] ([facility]) FVC-Pred 2.74 L [facility] ([facility]) FVC-%Pred-Pre 82 L [facility] ([facility]) FVC-LLN 2.11 L [facility] ([facility]) Fev1-Pred 2.08 L [facility] ([facility]) Fev1-Pre 1.40 L [facility] ([facility]) Fev1-%Pred-Pre 67 L [facility] ([facility]) Fev1-LLN 1.55 L [facility] ([facility]) Fev6-Pred 2.62 L [facility] ([facility]) Fev6-%Pred-Pre 86 L [facility] ([facility]) Fev6-Pre 2.27 L [facility] ([facility]) Tof3eqn-Tvyw 77 % [facility] ([facility]) Fev6-LLN 2.00 L [facility] ([facility]) Whw6zhj-%Pred-Pre 80 % [facility] ([facility]) Fdd7azf-Dhe 62 % [facility] ([facility]) Czb0vpz-FEZ 67 % [facility] ([facility]) Yla6lag-Dzqi 96 % [facility] ([facility]) Wix4fvl-Zlc 100 % [facility] ([facility]) Cep7ren-%Pred-Pre 104 % [facility] ([facility]) FEFMax-Pred 5.41 L/E/sec [facility] ([facility]) FEFMax-Pre 3.71 L/E/sec [facility] ([facility]) FEFMax-%Pred-Pre 68 L/E/sec [facility] ([facility]) FEFMax-LLN 3.85 L/E/sec [facility] ([facility]) Umu1827-Vibr 1.87 L/E/sec [facility] ([facility]) Zks9501-%Pred-Pre 38 L/E/sec [facility] ([facility]) Ciu8429-Nwd 0.71 L/E/sec [facility] ([facility]) ExpTime-Pre 5.31 sec [facility] ([facility]) Yuu0084-AGL 0.74 L/E/sec [facility] ([facility]) Cug5pgm1-Ruth 80 % [facility] ([facility]) Uuy6tud7-Oqd 62 % [facility] ([facility]) Xkp6qgu8-LNA 71 % [facility] ([facility]) Hrn5tdo4-%Pred-Pre 77 % [facility] ([facility]) ID Date Data Source [id number] 09/21/2020 12:00:00 AM EST [facility] Name Value Range Interpretation Code Description Data Lian rce(s) Supporting Document(s) SARS-CoV-2 (COVID-19) RNA [Presence] in Respiratory specimen by CATA with probe detection [facility] This lab was ordered by [facility] and reported by [facility]. ID Date Data Source [id number] 09/19/2020 10:12:00 AM EST [facility] ([facility]) Name Value Range Interpretation Code Description Data Lian rce(s) Supporting Document(s) Gram Stain Laboratory test result Normal (applies to non-n umeric results) [facility] ([facility]) QUALITY: GOOD MANY WBCS FEW EPITHELIAL CELLS FEW GRAM POSITIVE COCCI IN PAIRS AND CHAINS FEW GRAM POSITIVE RODS Sputum Culture Laboratory test result Normal (applies to non-numeric results) [facility] ([facility]) FULL REPORT IN LAB NOTES (eCW and [facility] ). NORMAL CHRISTOPHER PRESENT ID Date Data Source [id number] 08/27/2020 09:53:00 AM EST [facility] ([facility]) Name Value Range Interpretation Code Description Data Lian rce(s) Supporting Document(s) FVC-Pred 2.74 L [facility] ([facility]) PDFReport Laboratory test result [facility] ([facility]) FVC-Pre 3.20 L [facility] ([facility]) FVC-%Pred-Pre 116 L [facility] ([facility]) FVC-LLN 2.11 L [facility] ([facility]) Fev1-Pred 2.08 L [facility] ([facility]) Fev1-Pre 2.34 L [facility] ([facility]) Fev1-%Pred-Pre 112 L [facility] ([facility]) Fev1-LLN 1.55 L [facility] ([facility]) Fev6-Pred 2.62 L [facility] ([facility]) Fev6-%Pred-Pre 122 L [facility] ([facility]) Fev6-Pre 3.20 L [facility] ([facility]) Beb7spi-Djzf 77 % [facility] ([facility]) Fev6-LLN 2.00 L [facility] ([facility]) Gog1lty-Vqr 73 % [facility] ([facility]) Qkx1gdn-%Pred-Pre 95 % [facility] ([facility]) Fun2maz-UIT 67 % [facility] ([facility]) Kpz2xkx-Ufc 100 % [facility] ([facility]) Aqb9eoi-Ancg 96 % [facility] ([facility]) Jzs5qjm-%Pred-Pre 104 % [facility] ([facility]) FEFMax-Pred 5.41 L/E/sec [facility] ([facility]) FEFMax-Pre 5.40 L/E/sec [facility] ([facility]) FEFMax-%Pred-Pre 99 L/E/sec [facility] ([facility]) FEFMax-LLN 3.85 L/E/sec [facility] ([facility]) Azu9773-Buhw 1.87 L/E/sec [facility] ([facility]) Pib0281-%Pred-Pre 92 L/E/sec [facility] ([facility]) Eeh1338-Qwy 1.72 L/E/sec [facility] ([facility]) Acu2105-QYP 0.74 L/E/sec [facility] ([facility]) Wyy2cpm8-Lghw 80 % [facility] ([facility]) Rki0lnm8-Scu 73 % [facility] ([facility]) ExpTime-Pre 5.75 sec [facility] ([facility]) Wiq1esh7-%Pred-Pre 91 % [facility] ([facility]) Izg0hew9-JGP 71 % [facility] ([facility]) ID Date Data Source [id number] 08/09/2020 10:20:00 AM EST [facility] ([facility]) Name Value Range Interpretation Code Description Data Lian rce(s) Supporting Document(s) PDFReport Laboratory test result [facility] ([facility]) FVC-Pre 2.43 L [facility] ([facility]) FVC-Pred 2.72 L [facility] ([facility]) FVC-LLN 2.09 L [facility] ([facility]) FVC-%Pred-Pre 89 L [facility] ([facility]) Fev1-Pred 2.07 L [facility] ([facility]) Fev1-%Pred-Pre 71 L [facility] ([facility]) Fev1-Pre 1.49 L [facility] ([facility]) Fev1-LLN 1.54 L [facility] ([facility]) Fev6-Pred 2.60 L [facility] ([facility]) Fev6-%Pred-Pre 93 L [facility] ([facility], ) Fev6-Pre 2.43 L [facility] ([facility], ) Fev6-LLN 1.99 L [facility] ([facility]) Zjz3jmt-Ecvr 76 % [facility] ([facility]) Lgl4zbg-Grp 61 % [facility] ([facility]) Zqz8ugd-QBV 66 % [facility] ([facility]) Iba9lue-%Pred-Pre 80 % [facility] ([facility]) Who5bvo-Nles 96 % [facility] ([facility]) Ahj4vpw-%Pred-Pre 103 % [facility] ([facility]) Hal7vvn-Eln 100 % [facility] ([facility]) FEFMax-Pre 4.32 L/E/sec [facility] ([facility]) FEFMax-Pred 5.38 L/E/sec [facility] ([facility]) FEFMax-%Pred-Pre 80 L/E/sec [facility] ([facility]) FEFMax-LLN 3.83 L/E/sec [facility] ([facility]) Xjg9565-Yayp 1.85 L/E/sec [facility] ([facility]) Xew2515-Ptn 0.75 L/E/sec [facility] ([facility]) Yfe7782-%Pred-Pre 40 L/E/sec [facility] ([facility]) Hje4215-CBR 0.73 L/E/sec [facility] ([facility]) Rpc9oib3-Eenk 80 % [facility] ([facility]) ExpTime-Pre 6.26 sec [facility] ([facility], ) Dvz4yrc3-Yqd 61 % [facility] ([facility]) Tzl7qxx3-%Pred-Pre 76 % [facility] ([facility]) Tuh1ecg3-GCD 72 % [facility] ([facility]) ID Date Data Source [id number] 08/07/2020 06:41:00 AM EST [facility] ([facility] Name Value Range Interpretation Code Description Data Lian rce(s) Supporting Document(s) Corynebacterium diphtheriae Ab [Titer] in Serum 1.00 IU/ml Normal (applies to non-numeric results) [facility] ([facility]) <content>Interpretation:</content>
< content>Non-Protective <0.10</content>
<content>Protective >=0.10</content>
<content>.</content>
<content>For research use only.</content>
<content>Performed at: [facility]</content>
<content>[address] [place], [place] [id number]</content>
<content>Gum Maker: Rach Fragoso PhD, Phone: [phone]</content>
<content>Performed at: [facility]</content>
<content>[address] [place] [id number]</content>
<content>Gum Maker: Cal Dorantes MD, Phone: [phone]</content>
<content></content> ID Date Data Source [id number] 08/07/2020 06:41:00 AM EST [facility] ([facility]) Name Value Range Interpretation Code Description Data Lian rce(s) Supporting Document(s) Laboratory test finding (navigational concept) 2.3 ug/mL Normal (applies to non-numeric results) [facility] Laboratory test finding (navigational concept) 14.9 ug/mL Normal (applies to non-numeric results) [facility] Laboratory test finding (navigational concept) 0.8 ug/mL Below low normal [facility] ([facility]) Laboratory test finding (navigational concept) 1.0 ug/mL Below low normal [facility] ([facility]) Laboratory test finding (navigational concept) 4.5 ug/mL Normal (applies to non-numeric results) [facility] Laboratory test finding (navigational concept) 0.8 ug/mL Below low normal [facility] ([facility]) Laboratory test finding (navigational concept) 4.4 ug/mL Normal (applies to non-numeric results) [facility] Laboratory test finding (navigational concept) 1.4 ug/mL Normal (applies to non-numeric results) [facility] Laboratory test finding (navigational concept) 1.1 ug/mL Below low normal [facility] ([facility]) Laboratory test finding (navigational concept) 1.7 ug/mL Normal (applies to non-numeric results) [facility] Laboratory test finding (navigational concept) 9.8 ug/mL Normal (applies to non-numeric results) [facility] Laboratory test finding (navigational concept) 0.7 ug/mL Below low normal [facility] ([facility]) Laboratory test finding (navigational concept) 0.7 ug/mL Below low normal [facility] ([facility]) Laboratory test finding (navigational concept) 1.1 ug/mL Below low normal [facility] ([facility]) *This test was developed and its perform ance characteristics determined by [facility]. It has not been cleared or approved by the U.S. Food and Drug Administration. ID Date Data Source [id number] 07/14/2020 10:00:00 AM EDT [facility] ([facility], ) Name Value Range Interpretation Code Description Data Lian rce(s) Supporting Document(s) Gram Stain Laboratory test result Normal (applies to non-n umeric results) [facility] ([facility]) QUALITY: GOOD MANY WBCS FEW EPITHELIAL CELLS FEW GRAM POSITIVE COCCI IN PAIRS FEW GRAM POSITIVE RODS Sputum Culture Laboratory test result Normal (applies to non-numeric results) [facility] ([facility], ) <content>FULL REPORT IN LAB NOTES (eCW a nd [facility]).</content>
<content>NORMAL CHRISTOPHER PRESENT</content>
<content></content>
<content></content>
<content> ORGANISM 1: STAPHYLOCOCCUS AUREUS</content>
<content></content>
<content>QUANTITY OF GROWTH MODERATE</content>
<content></content>
<content></content>
<content> ORGANISM 1: STAPHYLOCOCCUS AUREUS</content>
<content></content>
<content>STAPHYLOCOCCUS AUREUS: REACTION</content>
<content>ICR (INDUCIBLE CC RESISTANCE) IV ICR TEST RESULT</content>
<content>TETRACYCLINE PO 250 mg qid <=1 S</content>
<content> PENICILLIN G IV 1 mu q6H 0.12 R</content>
<content>PENICILLIN G IV 1 mu q6h 0.12 R</content>
<content>PENICILLIN G PO 250mg q6h fasting 0.12 R</content>
<content>TRIMETHOPRIM/SULFAMETHOXAZOLE IV 160mg TMP & 800mg SMXq6h <=10 S</content>
<content>TRIMETHOPRIM/SULFAMETHOXAZOLE PO Bactrim DS Bid <=10 S</content>
<content>ERYTHROMYCIN IV 500mg q6h >=8 R</content>
<content> ERYTHROMYCIN PO 500mg q6h >=8 R</content>
<content>GENTAMICIN IV 80mg q8h <=0.5 S</content>
<content>CLINDAMYCIN IV 600mg q6h 0.25 R</content>
<content>CLINDAMYCIN PO 150mg q6h 0.25 R</content>
<content>OXACILLIN IV 500mg q6h 0.5 S</content>
<content>VANCOMYCIN IV 500mg q8h 1 S</content>
<content> LINEZOLID (ZYVOX) IV 600MG Q12HR 2 S</content>
<content>LINEZOLID (ZYVOX) PO 600MG Q12HR 2 S</content>
<content>An isolate with a (+) POSITIVE ICR test is considered</content>
<content>CLINDAMYCIN RESISTANT; however, clindamycin may still</content>
<content>be effective in some patients.</content>
< content>An isolate with a (-) NEGATIVE ICR test is considered</content>
<content>CLIDAMYCIN SENSITIVE.</content>
<content>Oxacillin result predicts susceptibility to all penicillinase-stable</content>
<content>penicillins (Nafcillin, Dicloxacilin), Cephalosporins, Carbapenems,</content>
<content>Amoxicillin/Clavulanate & Ampicillin/Sulbactam per C[facility]I standards.</content>
<content></content> ID Date Data Source [id number] 07/10/2020 03:36:00 PM EDT [facility] ([facility]) Name Value Range Interpretation Code Description Data Lian rce(s) Supporting Document(s) FVC-Pred 2.74 L [facility] ([facility]) PDFReport Laboratory test result [facility] ([facility]) FVC-Pre 2.04 L [facility] ([facility]) FVC-LLN 2.11 L [facility] ([facility]) FVC-%Pred-Pre 74 L [facility] ([facility]) Fev1-Pre 1.43 L [facility] ([facility]) Fev1-Pred 2.08 L [facility] ([facility]) Fev1-%Pred-Pre 68 L [facility] ([facility]) Fev6-Pre 2.04 L [facility] ([facility], ) Fev1-LLN 1.55 L [facility] ([facility]) Fev6-Pred 2.62 L [facility] ([facility]) Fev6-LLN 2.00 L [facility] ([facility]) Dqi7tyq-Xhej 77 % [facility] ([facility]) Fev6-%Pred-Pre 77 L [facility] ([facility]) Vdw1gyi-Gyr 70 % [facility] ([facility]) Adj3faa-%Pred-Pre 91 % [facility] ([facility]) Uvk5tab-GUH 67 % [facility] ([facility]) Ire7gmy-%Pred-Pre 104 % [facility] ([facility]) Rbn7vqi-Wasn 96 % [facility] ([facility]) Tud4cqi-Con 100 % [facility] ([facility]) FEFMax-LLN 3.85 L/E/sec [facility] ([facility]) FEFMax-Pre 3.60 L/E/sec [facility] ([facility]) FEFMax-Pred 5.41 L/E/sec [facility] ([facility]) FEFMax-%Pred-Pre 66 L/E/sec [facility] ([facility]) Jcs4771-Ric 0.96 L/E/sec [facility] ([facility]) Tit2035-%Pred-Pre 51 L/E/sec [facility] ([facility]) Ebh0575-Ymqc 1.87 L/E/sec [facility] ([facility]) ExpTime-Pre 5.54 sec [facility] ([facility]) Vji7rvv1-Gkmc 80 % [facility] ([facility]) Wnj9249-FQR 0.74 L/E/sec [facility] ([facility]) Uib3qtn6-Sve 70 % [facility] ([facility]) Reb0ywj1-%Pred-Pre 88 % [facility] ([facility], ) Duz0hbj4-RNJ 71 % [facility] ([facility], ) ID Date Data Source [id number] 06/19/2020 11:34:43 AM EDT [facility] NT INFORMATIONPatient MRN Name Date of Age Gend*PT [id number] Ke Jackson 1955 65 years F ---PT Location Admission Date/Time Visit ID Attending Provider --- --- --- --- EPI ID CSN Admitting Provider [id number] ---06/19/20 Ke Jackson [id number] female 65 yearsThis is a patient of Dr. MulliganDiagnosis/Surgical Pathology 03/2014:RIGHT breast grade 3 invasive ductal carcinoma 2.5 cm, grade 3 DCIS, sentinelnode biopsy +0/1, but with mastectomy had +1/2 nodes, ER/CT/H2N+, [id number], StageII Treatment:Bilateral Mastectomy, declined reconstruction, Dr Evansemotherapy with THC, completed one year course of Herceptin 07/2015, Dr Gouldstrozole started 2014, Dr Ayala 2015 she had a nodule noted at the lateral end of mastectomy scar on left,biopsy was benign. Left axillary/upper chest wall lipoma; this was followed for 2 years byultrasound without change, she no longer requires imaging for this.Current Meds:Current Outpatient Medications: anastrozole (ARIMIDEX) 1 MG tablet, Take 1 mg by mouth daily, Disp: , Rfl: 1 atorvastatin (LIPITOR) 10 MG tablet, Take 5 mg by mouth, Disp: , Rfl: budesonide (PULMICORT) 0.5 MG/2ML nebulizer solution, Inhale 0.5 mg, Disp: ,Rfl: Calcium Carbonate (CALCIUM 600 PO), Take 600 mg by mouth 2 (two) times a day, Disp: , Rfl: cholecalciferol (VITAMIN D3) 400 UNITS CAPS, Take 1,000 Units by mouth 2(two) times a day , Disp: , Rfl: Epinastine HCl 0.05 % ophthalmic solution, instill 1 drop into both eyestwice a day, Disp: , Rfl: 0 Lactobacillus (ACIDOPHILUS PROBIOTIC PO), Take by mouth 2 (two) times a day,Disp: , Rfl: LORazepam (ATIVAN) 0.5 MG tablet, Take 0.5 mg by mouth, Disp: , Rfl: LUMIGAN 0.01 % SOLN, , Disp: , Rfl: 0 metFORMIN (GLUCOPHAGE) 500 MG tablet, Take 500 mg by mouth 2 (two) times aday with meals, Disp: , Rfl: montelukast (SINGULAIR) 10 MG tablet, , Disp: , Rfl: 0 omeprazole (PRILOSEC) 40 MG capsule, Take 40 mg by mouth, Disp: , Rfl: predniSONE (DELTASONE) 5 MG tablet, Take 5 mg by mouth daily, Disp: , Rfl: SPIRIVA RESPIMAT 2.5 MCG/ACT AERS, , Disp: , Rfl: 0 SYMBICORT 160-4.5 MCG/ACT inhaler, , Disp: , Rfl: 0 VENTOLIN HFA 108 (90 BASE) MCG/ACT inhaler, , Disp: , Rfl: 0 azithromycin (ZITHROMAX) 500 MG tablet, TAKE ONE TABLET BY MOUTH ON AND WEDNESDAY, Disp: , Rfl: Misc. Devices MISC, Use as directed. Compression sleeve and gauntlet ICD #457.1, v49.89 & 174.9, Disp: , Rfl: Misc. Devices MISC, Use as directed. Mastectomy bra and prosthesis ( 2 ),Disp: , Rfl:Allergies:AllergiesAllergen Reactions Amoxicillin-Pot Clavulanate Rash RashPast Medical History:Diagnosis Date Anxiety 10/05/2014 Bronchitis, chronic 10/05/2014 Diabetes mellitus 10/05/2014 drug induced Enlarged lymph nodes in armpit 05/06/2016 Hypertension 10/05/2014 Recurrent upper respiratory infection (URI) 03/09/2014 RIGHT breast grade 3 invasive ductal carcinoma 2.5 cm, grade 3 DCIS, sentinelnode biopsy +0/1, but with mastectomy had +1/2 nodes, ER/CT/H2N+, [id number], StageII 2013 S/P bilateral mastectomy, 201310/19/2014 Surgery follow-up examination 04/30/2014 Wound seroma 04/30/2014Family HistoryProblem Relation Age of Onset Lung cancer Mother Heart disease FatherSocial HistorySocioeconomic History Marital status: Spouse name: Not on file Number of children: Not on file Years of education: Not on file Highest education level: Not on fileOccupational History Not on fileSocial Needs Financial resource strain: Not on file Food insecurity: Worry: Not on file Inability: Not on file Transportation needs: Medical: Not on file Non-medical: Not on fileTobacco Use Smoking status: Former Smoker Packs/day: 1.00 Years: 6.00 Pack years: 6.00 Types: Cigarettes Last attempt to quit: 09/20/1986 Years since quittin.7 Smokeless tobacco: Never UsedSubstance and Sexual Activity Alcohol use: Yes Comment: occasional Drug use: No Sexual activity: Not on fileLifestyle Physical activity: Days per week: Not on file Minutes per session: Not on file Stress: Not on fileRelationships Social connections: Talks on phone: Not on file Gets together: Not on file Attends gnosticist service: Not on file Active member of club or organization: Not on file Attends meetings of clubs or organizations: Not on file Relationship status: Not on file Intimate partner violence: Fear of current or ex partner: Not on file Emotionally abused: Not on file Physically abused: Not on file Forced sexual activity: Not on fileOther Topics Concern Bike Helmet Not Asked History of Falls Not Asked Self-Exams Not Asked Caffeine Concern Not Asked Hobby Hazards Not Asked Sleep Concern Not Asked Daily Calcium Supplement Not Asked Lead Exposure Not Asked Special Diet Not Asked Daily Vitamin D Supplement Not Asked Service Not Asked Stress Concern Not Asked Domestic Violence in home Not Asked Radon exposure Not Asked Weight Concern Not Asked Exercise Not Asked Seat Belt Not Asked Well water Not Asked Firearms in home Not Asked History of Breast Feeding Not AskedSocial History Narrative Not on fileReview of SystemsReview of SystemsConstitutional: Negative.HENT: Negative.Eyes: Negative.Respiratory: Negative.Cardiovascular: Negati ve.Gastrointestinal: Negative.Endocrine: Negative.Genitourinary: Negative.Musculoskeletal: Negative.Skin: Negative.Allergic/Immunologic: Negative.Neurological: Negative.Hematological: Negative.Psychiatric/Behavioral: Negative.Vitals: 06/19/20 1016BP: (!) 147/92Pulse: 71Resp: 18Exam:Const: Appears pleasant. No signs of apparent distress present. Alert andoriented.Head/Face: Atraumatic, normocephalic and no lesions or masses.Eyes: Conjunctivae pink.No icterus of the sclerae bilaterally.ENMT: Oral mucosa: pink and moist with no lesions.Neck: Supple. Palpation reveals no lymphadenopathy, swelling or ten derness.Trachea midline.Resp: Respirations are regular. Lungs are clear bilaterally.CV: Rate is regular. Rhythm is regular.Breasts: Breast exam was performed while patient was in a supine position and isablele sitting postion. Mastectomy scars show/s no evidence of subcutaneous masses.She has a palpable area in the left lateral edge of the mastectomy incision,which appears stable. No dominant masses on the rightchest wall. Axillae:Axillae are normal to palpation bilaterally, but no lymphadenopathy of theaxillae.Musculo: Walks with a normal gait for age. Upper Extremities: Full ROMbilaterally. Lower Ext remities: Full ROM bilaterally.Skin: No jaundice, lesion, rash.Neuro: Upper Extremities: Lower Extremities: Neuro reveals no focal deficits.Assessment: Patient has a benign exam with no signs/symptoms of recurrence.Follow-up: The patient will follow-up in 1 year no testing needed. Name Value Range Interpretation Code Description Data Lian rce(s) Supporting Document(s) Procedure Social History Code Duration Value Status Description Data Source(s ) Smoking 07/09/2021 12:00:00 AM EDT Patient is a former smoker completed Patient is a former smoker [facility] ([facility] ) Alcohol intake 06/30/2021 12:00:00 AM EDT Current drinker of al cohol (finding) completed Current drinker of alcohol (finding) [facility] Smoking 04/23/2021 12:00:00 AM EDT Patient is a former smoker completed Patient is a former smoker MEDENT ([facility]) Smoking 04/17/2021 02:18:26 PM EDT Ex-smoker (finding) [facility] ed Ex-smoker (finding) ELA ([facility]) Smoking 01/09/2021 12:00:00 AM EDT - 09/20/1990 12:00:00 AM EST Patient is a former smoker completed Patient is a former smoker [facility] Smoking 06/12/2020 03:39:08 PM EDT Ex-smoker (finding) complet ed Ex-smoker (finding) ELA ([facility]) Vital Signs ID Date Data Source UNK Name Value Range Interpretation Code Description Data Source(s) Body weight 162.00 [lb_av] 162.00 [lb_av] MED[facility] T ([facility]) Body height 61 [in_i] 61 [in_i] MED[facility] ([facility]) 5'1" Heart rate 76 /min 76 /min [facility] ([facility] Respiratory rate 18 /min 18 /min MED[facility] ( [facility]) Systolic blood pressure 127 mm[Hg] 127 mm[Hg] M EDENT ([facility]) Diastolic blood pressure 85 mm[Hg] 85 mm[Hg] [facility] ([facility]) Body mass index (BMI) [Ratio] 30.6 kg/m2 30.6 k g/m2 [facility] ([facility]) Systolic blood pressure 146 mm[Hg] 146 mm[Hg] [facility] Diastolic blood pressure 90 mm[Hg] 90 mm[Hg] [facility] Heart rate 80 /min 80 /min [facility] Body temperature 36 Lu 36 Lu [facility] Respiratory rate 18 /min 18 /min [facility] Body height 157.5 cm 157.5 cm [facility] Body weight 72.576 kg 72.576 kg [facility] Body mass index (BMI) [Ratio] 29.26 kg/m2 29.26 kg/m2 [facility] Body weight 162 [lb_av] 162 [lb_av] eCW1 ([facility]) Body weight 73.48 kg 73.48 kg W1 ([facility]) Body height 61.25 [in_i] 61.25 [in_i] eCW1 ([facility]) Body mass index (BMI) [Ratio] 30.36 kg/m2 30.36 kg/m2 eCW1 ([facility]) Heart rate 87 /min 87 /min eCW1 ([facility]) Respiratory rate 18 /min 18 /min eCW1 ([facility]) Body temperature 97.5 [degF] 97.5 [degF] eCW1 ( [facility]) Systolic blood pressure 136 mm[Hg] 136 mm[Hg] e CW1 ([facility]) Diastolic blood pressure 76 mm[Hg] 76 mm[Hg] eCW1 ([facility]) Systolic blood pressure 118 mm[Hg] 118 mm[Hg] [facility] Body height 61 [in_i] 61 [in_i] [facility] ([facility]) 5'1" Body weight 160.00 [lb_av] 160.00 [lb_av] MEDEN T ([facility]) Body weight 72.576 kg 72.576 kg [facility] ([facility]) Body surface area Derived from formula 1.72 m2 1.72 m2 [facility] ([facility]) Diastolic blood pressure 78 mm[Hg] 78 mm[Hg] [facility] ([facility]) Heart rate 83 /min 83 /min [facility] ([facility]) Oxygen saturation in Arterial blood by Pulse oximetry 99 % 99 % [facility] ([facility]) Body mass index (BMI) [Ratio] 30.2 kg/m2 30.2 k g/m2 [facility] ([facility]) [place] body weight 105 [lb_av] 105 [lb_av] MEDEN T ([facility]) Systolic blood pressure 134 mm[Hg] 134 mm[Hg] M EDENT ([facility]) Diastolic blood pressure 87 mm[Hg] 87 mm[Hg] [facility]) Heart rate 77 /min 77 /min MEDENT ([facility]) Respiratory rate 13 /min 13 /min [facility] ( [facility]) Oxygen saturation in Arterial blood by Pulse oximetry 99 % 99 % [facility] ([facility]) Body temperature 96.9 [degF] 96.9 [degF] MEDENT ([facility]) Body weight 154.00 [lb_av] 154.00 [lb_av] MEDEN T ([facility], [facility]) Body height 61 [in_i] 61 [in_i] MEDENT ([facility]) 5'1" Body mass index (BMI) [Ratio] 29.1 kg/m2 29.1 k g/m2 MEDENT ([facility]) Systolic blood pressure 146 mm[Hg] 146 mm[Hg] M EDENT ([facility], [facility]) Diastolic blood pressure 96 mm[Hg] 96 mm[Hg] MEDENT ([facility]) Heart rate 90 /min 90 /min MEDENT ([facility]) Respiratory rate 16 /min 16 /min MEDENT ( [facility]) Oxygen saturation in Arterial blood by Pulse oximetry 95 % 95 % MEDENT ([facility]) Body temperature 97.0 [degF] 97.0 [degF] MEDENT ([facility]) Body weight 154.00 [lb_av] 154.00 [lb_av] MEDEN T ([facility], [facility]) Body height 61 [in_i] 61 [in_i] MEDENT ([facility], [facility]) 5'1" Body mass index (BMI) [Ratio] 29.1 kg/m2 29.1 k g/m2 MEDENT ([facility]) Body weight 157 [lb_av] 157 [lb_av] eCW1 ([facility]) Body weight 71.21 kg 71.21 kg eCW1 ([facility]) Body height 61.25 [in_i] 61.25 [in_i] eCW1 ([facility]) Body mass index (BMI) [Ratio] 29.42 kg/m2 29.42 kg/m2 eCW1 ([facility]) Systolic blood pressure 136 mm[Hg] 136 mm[Hg] e CW1 ([facility]) Diastolic blood pressure 78 mm[Hg] 78 mm[Hg] eCW1 ([facility]) Systolic blood pressure 143 mm[Hg] 143 mm[Hg] M EDENT ([facility]) Diastolic blood pressure 89 mm[Hg] 89 mm[Hg] MEDENT ([facility]) Heart rate 98 /min 98 /min MEDENT ([facility], [facility]) Respiratory rate 12 /min 12 /min MEDENT ( [facility], [facility]) Oxygen saturation in Arterial blood by Pulse oximetry 96 % 96 % MEDENT ([facility], [facility]) Body temperature 96.8 [degF] 96.8 [degF] MEDENT ([facility]) Body weight 154.00 [lb_av] 154.00 [lb_av] MEDEN T ([facility], [facility]) Body height 61 [in_i] 61 [in_i] MEDENT ([facility]) 5'1" Body mass index (BMI) [Ratio] 29.1 kg/m2 29.1 k g/m2 MEDENT ([facility], [facility]) Body weight 156.50 [lb_av] 156.50 [lb_av] MEDEN T ([facility]) Body height 61 [in_i] 61 [in_i] MEDENT ([facility]) 5'1" Heart rate 92 /min 92 /min MED[facility] ([facility] Respiratory rate 18 /min 18 /min MED[facility] ( [facility]) Systolic blood pressure 118 mm[Hg] 118 mm[Hg] M EDENT ([facility]) Diastolic blood pressure 79 mm[Hg] 79 mm[Hg] MED[facility] ([facility]) Body mass index (BMI) [Ratio] 29.6 kg/m2 29.6 k g/m2 MED[facility] ([facility]) Body temperature 96.1 [degF] 96.1 [degF] MEDENT ([facility], ) Body weight 153.00 [lb_av] 153.00 [lb_av] MEDEN T ([facility]) Body mass index (BMI) [Ratio] 28.9 kg/m2 28.9 k g/m2 [facility] ([facility]) [place] body weight 105 [lb_av] 105 [lb_av] MEDEN T ([facility]) Body weight 69.401 kg 69.401 kg [facility] ([facility]) Body surface area Derived from formula 1.69 m2 1.69 m2 [facility] ([facility]) Oxygen saturation in Arterial blood by Pulse oximetry 98 % 98 % [facility] ([facility]) Body height 61 [in_i] 61 [in_i] [facility] ([facility]) 5'1" Systolic blood pressure 122 mm[Hg] 122 mm[Hg] [facility] Body temperature 96.1 [degF] 96.1 [degF] [facility] ([facility]) Body weight 69.401 kg 69.401 kg [facility] ([facility]) Body surface area Derived from formula 1.69 m2 1.69 m2 [facility] ([facility]) Diastolic blood pressure 84 mm[Hg] 84 mm[Hg] [facility] ([facility]) Heart rate 74 /min 74 /min [facility] ([facility]) Oxygen saturation in Arterial blood by Pulse oximetry 98 % 98 % [facility] ([facility]) Body height 61 [in_i] 61 [in_i] [facility] ([facility]) 5'1" Body weight 153.00 [lb_av] 153.00 [lb_av] MEDEN T ([facility]) Body mass index (BMI) [Ratio] 28.9 kg/m2 28.9 k g/m2 [facility] ([facility]) [place] body weight 105 [lb_av] 105 [lb_av] MEDEN T ([facility]) Diastolic blood pressure 100 mm[Hg] 100 mm[Hg] [facility] ([facility]) Oxygen saturation in Arterial blood by Pulse oximetry 96 % 96 % [facility] ([facility]) Body height 61 [in_i] 61 [in_i] MEDENT ([facility]) 5'1" Heart rate 100 /min 100 /min MEDENT ([facility]) Respiratory rate 18 /min 18 /min MEDENT ( [facility]) Body temperature 95.0 [degF] 95.0 [degF] MEDENT ([facility]) Body weight 154.00 [lb_av] 154.00 [lb_av] MEDEN T ([facility], [facility]) Systolic blood pressure 146 mm[Hg] 146 mm[Hg] M EDENT ([facility], [facility]) Body mass index (BMI) [Ratio] 29.1 kg/m2 29.1 k g/m2 MEDENT ([facility]) Body weight 157.00 [lb_av] 157.00 [lb_av] MEDEN T ([facility]) Body height 61 [in_i] 61 [in_i] MED[facility] ([facility]) 5'1" Heart rate 92 /min 92 /min [facility] ([facility] Respiratory rate 18 /min 18 /min MED[facility] ( [facility]) Diastolic blood pressure 85 mm[Hg] 85 mm[Hg] [facility] ([facility]) Body mass index (BMI) [Ratio] 29.7 kg/m2 29.7 k g/m2 [facility] ([facility]) Systolic blood pressure 136 mm[Hg] 136 mm[Hg] EDENT ([facility]) Body weight 155.6 [lb_av] 155.6 [lb_av] eCW1 ([facility]) Body height 61.25 [in_i] 61.25 [in_i] eCW1 ([facility]) Body mass index (BMI) [Ratio] 29.16 kg/m2 29.16 kg/m2 [facility] ([facility]) Heart rate 110 /min 110 /min eCW1 ([facility]) Respiratory rate 18 /min 18 /min eCW1 ([facility]) Body temperature 97.5 [degF] 97.5 [degF] eCW1 ( [facility]) Systolic blood pressure 120 mm[Hg] 120 mm[Hg] e CW1 ([facility]) Diastolic blood pressure 76 mm[Hg] 76 mm[Hg] eCW1 ([facility]) Body temperature 96.9 [degF] 96.9 [degF] MEDENT ([facility] ) Body temperature 96.4 [degF] 96.4 [degF] MEDENT ([facility] ) Systolic blood pressure 122 mm[Hg] 122 mm[Hg] M EDENT ([facility]) Diastolic blood pressure 80 mm[Hg] 80 mm[Hg] MED[facility] ([facility]) Heart rate 103 /min 103 /min [facility] Body weight 157.00 [lb_av] 157.00 [lb_av] MEDEN T ([facility]) [place] Body mass index (BMI) [Ratio] 29.7 kg/m2 29.7 k g/m2 MEDENT ([facility]) Oxygen saturation in Arterial blood by Pulse oximetry 96 % 96 % MEDENT ([facility]) Body temperature 96.5 [degF] 96.5 [degF] MED[facility] ([facility]) Body height 61 [in_i] 61 [in_i] [facility] 5'1" [place] body weight 105 [lb_av] 105 [lb_av] MEDEN T ([facility]) Body weight 71.215 kg 71.215 kg [facility] ([facility]) Body surface area Derived from formula 1.70 m2 1.70 m2 [facility] Body weight 158.50 [lb_av] 158.50 [lb_av] [facility] ([facility] Body height 61 [in_i] 61 [in_i] [facility] ([facility]) 5'1" Heart rate 101 /min 101 /min [facility] ([facility]) Respiratory rate 22 /min 22 /min MED[facility] ( [facility]) Systolic blood pressure 147 mm[Hg] 147 mm[Hg] M EDENT ([facility]) Diastolic blood pressure 84 mm[Hg] 84 mm[Hg] MED[facility] ([facility]) Oxygen saturation in Arterial blood by Pulse oximetry 96 % 96 % [facility] ([facility]) Body mass index (BMI) [Ratio] 29.9 kg/m2 29.9 k g/m2 [facility] ([facility]) Body temperature 96.8 [degF] 96.8 [degF] MEDENT ([facility] ) Body height 61 [in_i] 61 [in_i] MEDENT ([facility] ) 5'1" Body weight 157.00 [lb_av] 157.00 [lb_av] MEDEN T ([facility] ) Body mass index (BMI) [Ratio] 29.7 kg/m2 29.7 k g/m2 MEDENT ([facility] ) Respiratory rate 12 /min 12 /min MEDENT ( [facility]) Body mass index (BMI) [Ratio] 29.7 kg/m2 29.7 k g/m2 MEDENT ([facility]) Systolic blood pressure 139 mm[Hg] 139 mm[Hg] M EDENT ([facility], [facility]) Diastolic blood pressure 92 mm[Hg] 92 mm[Hg] MEDENT ([facility], [facility]) Heart rate 88 /min 88 /min MEDENT ([facility]) Oxygen saturation in Arterial blood by Pulse oximetry 97 % 97 % MEDENT ([facility], [facility]) Body temperature 97.8 [degF] 97.8 [degF] MEDENT ([facility]) Body weight 157.00 [lb_av] 157.00 [lb_av] MEDEN T ([facility], [facility]) Body height 61 [in_i] 61 [in_i] MEDENT ([facility]) 5'1" Body weight 71.215 kg 71.215 kg [facility] ([facility]) Systolic blood pressure 120 mm[Hg] 120 mm[Hg] M EDENT ([facility]) Diastolic blood pressure 70 mm[Hg] 70 mm[Hg] [facility] ([facility]) Heart rate 81 /min 81 /min [facility] ([facility]) Oxygen saturation in Arterial blood by Pulse oximetry 99 % 99 % [facility] ([facility]) Body temperature 96.1 [degF] 96.1 [degF] [facility] ([facility]) Body height 61 [in_i] 61 [in_i] [facility] ([facility]) 5'1" Body weight 157.00 [lb_av] 157.00 [lb_av] MEDEN T ([facility]) Body mass index (BMI) [Ratio] 29.7 kg/m2 29.7 k g/m2 [facility] ([facility]) [place] body weight 105 [lb_av] 105 [lb_av] MEDEN T ([facility]) Body surface area Derived from formula 1.70 m2 1.70 m2 [facility] ([facility]) Systolic blood pressure 144 mm[Hg] 144 mm[Hg] [facility] Diastolic blood pressure 90 mm[Hg] 90 mm[Hg] [facility] ([facility]) Heart rate 82 /min 82 /min [facility] ([facility]) Oxygen saturation in Arterial blood by Pulse oximetry 97 % 97 % [facility] ([facility]) Body height 61 [in_i] 61 [in_i] [facility] ([facility]) 5'1" Body weight 157.00 [lb_av] 157.00 [lb_av] MEDEN T ([facility]) Body mass index (BMI) [Ratio] 29.7 kg/m2 29.7 k g/m2 [facility] ([facility]) [place] body weight 105 [lb_av] 105 [lb_av] MEDEN T ([facility]) Body weight 71.215 kg 71.215 kg [facility] ([facility]) Body surface area Derived from formula 1.70 m2 1.70 m2 [facility] ([facility]) Systolic blood pressure 130 mm[Hg] 130 mm[Hg] M EDENT ([facility]) Diastolic blood pressure 82 mm[Hg] 82 mm[Hg] [facility] ([facility]) Heart rate 96 /min 96 /min [facility] ([facility]) Oxygen saturation in Arterial blood by Pulse oximetry 97 % 97 % [facility] ([facility]) Body temperature 97.0 [degF] 97.0 [degF] [facility] ([facility]) Body height 61 [in_i] 61 [in_i] [facility] ([facility]) 5'1" Body weight 164.00 [lb_av] 164.00 [lb_av] MEDEN T ([facility]) Body mass index (BMI) [Ratio] 31.0 kg/m2 31.0 k g/m2 [facility] ([facility]) [place] body weight 105 [lb_av] 105 [lb_av] MEDEN T ([facility]) Body weight 74.390 kg 74.390 kg [facility] ([facility]) Body surface area Derived from formula 1.74 m2 1.74 m2 [facility] ([facility]) Systolic blood pressure 143 mm[Hg] 143 mm[Hg] M EDENT ([facility]) Diastolic blood pressure 92 mm[Hg] 92 mm[Hg] [facility]) Heart rate 93 /min 93 /min [facility] ([facility]) Respiratory rate 18 /min 18 /min [facility] ( [facility]) Oxygen saturation in Arterial blood by Pulse oximetry 93 % 93 % [facility] ([facility]) Body temperature 98.4 [degF] 98.4 [degF] MEDENT ([facility]) Body weight 164.00 [lb_av] 164.00 [lb_av] MEDEN T ([facility]) Body height 61 [in_i] 61 [in_i] MEDENT ([facility]) 5'1" Body mass index (BMI) [Ratio] 31.0 kg/m2 31.0 k g/m2 MEDENT ([facility]) Body mass index (BMI) [Ratio] 31.3 kg/m2 31.3 k g/m2 [facility] ([facility]) Body weight 160.50 [lb_av] 160.50 [lb_av] MEDEN T ([facility]) Body height 60 [in_i] 60 [in_i] MED[facility] ([facility] 5'0" Heart rate 94 /min 94 /min [facility] ([facility] Respiratory rate 16 /min 16 /min MED[facility] ( [facility]) Systolic blood pressure 131 mm[Hg] 131 mm[Hg] M EDENT ([facility]) Diastolic blood pressure 86 mm[Hg] 86 mm[Hg] MED[facility] ([facility]) Patient Treatment Plan of Care Planned Activity Planned Date Details Description Data Source (s) latanoprost 0.05 MG/ML Ophthalmic Solution 03/25/2021 12:00:00 AM E ASHLEY MAHMOOD ([facility]) bimatoprost 0.1 MG/ML Ophthalmic Solution [Lumigan] 03/20/20 12:00:00 AM EDT ELA ([facility]) bimatoprost 0.1 MG/ML Ophthalmic Solution [Lumigan] 10/07/19 12:00:00 AM EST ELA ([facility]) bimatoprost 0.1 MG/ML Ophthalmic Solution [Lumigan] 07/25/20 20 12:00:00 AM EST ELA ([facility]) Azithromycin 500 MG Oral Tablet 05/25/2020 12:00:00 AM EDT [facility] latanoprost 0.05 MG/ML Ophthalmic Solution 2020 12:00:00 AM E ASHLEY MAHMOOD ([facility]) bimatoprost 0.1 MG/ML Ophthalmic Solution [Lumigan] 12/11/19 12:00:00 AM EDT ELA ([facility]) olopatadine 2 MG/ML Ophthalmic Solution [Pataday] 09/15/2019 12: 00:00 AM EST ELA ([facility]) Lactobacillus (ACIDOPHILUS PROBIOTIC PO) [facility]
[2021-07-14] MEDS: TETRACAINE 0.5% OPHTH SOLN 4ML OD SCH ×2 (13:31→14:30)
[2021-07-14] MEDS: CYCLOPENTOLATE 1% OPHTH SOLN 2 ML BTL OD SCH ×2 (13:31→14:30)
[2021-07-14] MEDS: FLURBIPROFEN 0.03% OPHTH SOLN 2.5 ML OD SCH ×2 (13:31→14:30)
[2021-07-14] MEDS: PHENYLEPHRINE 2.5% OPHTH SOL 2ML OD SCH ×2 (13:31→14:30)
[2021-07-14 15:18] VITALS: BP 146/74
--- NOTE | 2021-07-17 14:28 | RO ---
DATE OF SURGERY: 07/14/2021 PREOPERATIVE DIAGNOSIS: Senile cataract right eye. POSTOPERATIVE DIAGNOSIS: Senile cataract right eye. PROCEDURE: Phacoemulsification with posterior chamber intraocular lens implant right eye. SURGEON: David Wright Jr., DO BARN MANAGER: ANESTHESIA: IV sedation. DESCRIPTION OF PROCEDURE: The patient was brought into the operating room and given monitored anesthesia by the department of anesthesia by IV route. The patient was then given a standard prep by using betadine solution. One drop of tetracaine was placed in the eye prior to the prep. The patient was then draped in the usual manner. Lid speculum was placed in the eye. The eye was grasped with 0.12 forceps for better exposure of the cornea. A 15-degree stab blade was made at 10-oclock position. 0.3 mL of 1% lidocaine in a syringe attached to a cannula was inserted into the anterior chamber through the port site. Viscoelastic was inserted into the anterior chamber through the port site. A 2.75 mm clear cornea keratome blade was then used to make a clear corneal wound at 9-oclock position. A cystotome was used to start a continuous tear capsulorrhexis, which was completed with Utrata forceps. Balanced salt solution (BSS) in a syringe attached to a cannula was then used to hydrodissect the lens nucleus. Phacoemulsification was then used to remove the lens nucleus using a divide and conquer-type technique. After this was completed, irrigation and aspiration apparatus was brought into the anterior chamber and the remaining cortical material was removed. ProVisc was inserted into the capsular bag. We then inserted a foldable lens, an Orlin AcrySof one-piece lens. It was then dialed into place using a [place] pusher. Once the lens was in place, irrigation and aspiration was reinserted into the anterior chamber and the remaining ProVisc was removed. BSS was inserted through the port site, and then the port site was hydrated. The wound was checked. There was no need for sutures at this time. The patient then had the lid speculum removed. The shield was placed over the eye, and the patient was brought back to ambulatory surgery in stable condition. The patient tolerated the procedure well. Phacoemulsification time was 14.34 seconds. Besivance drops were placed in the eye in ambulatory surgery. DANNY
[2021-07-21] MEDS ORDERED: ANAS1TAB2 PO (07:59)
== END 2021-07-14 15:27 | disposition home or self-care (01) ==
LOC: M SDC 10:58
PROVIDERS: ATTEND Ophthalmology
DX: H25.11 Age-related nuclear cataract, right eye (principal); E11.9 Type 2 diabetes mellitus without complications; J45.909 Unspecified asthma, uncomplicated; E78.5 Hyperlipidemia, unspecified; K21.9 Gastro-esophageal reflux disease without esophagitis; Z87.891 Personal history of nicotine dependence; Z85.3 Personal history of malignant neoplasm of breast; Z90.13 Acquired absence of bilateral breasts and nipples; Z92.21 Personal history of antineoplastic chemotherapy; Z88.0 Allergy status to penicillin; Z79.899 Other long term (current) drug therapy; Z98.82 Breast implant status; Z79.84 Long term (current) use of oral hypoglycemic drugs; Z79.51 Long term (current) use of inhaled steroids
CPT/HCPCS: 66984; J2250; J3010

== ENCOUNTER → 2021-10-31 | Outpatient (CLI) | payer OTHER, BC ==
[~2021-10-31] MED LIST changes: -DUOVISC (0.50ML VISCOAT/0.85ML PROVISC) OPHTH KIT As Ordered ONE; -LIDOCAINE 1% SDV 5ML VIAL As Ordered ONE; -LR 1,000 ML IV SCH; -MIDAZOLAM INJ 2MG/2ML VIAL (J2250 PER 1MG) As Ordered ONE; -fentaNYL 100 MCG/2 ML INJECTION (J3010) As Ordered ONE
[2021-10-31 08:45] LABS: HEMOGLOBIN A1c 8.1 %
[2021-10-31 08:53] LABS: ALBUMIN 3.4 GM/DL (3.2-5.2); ALT/SGPT 30 U/L (12-78); BILIRUBIN,TOTAL 0.5 MG/DL (0.2-1.0); BLOOD UREA NITROGEN 17 MG/DL (7-18); CALCIUM LEVEL 9.6 MG/DL (8.8-10.2); CARBON DIOXIDE LEVEL 28 MEQ/L (21-32); CHLORIDE LEVEL 108 MEQ/L (98-107); CHOLESTEROL LEVEL 181 MG/DL (<200); CHOLESTEROL RISK RATIO 3.351 (<5); CREATININE FOR GFR 0.86 MG/DL (0.55-1.30); GLOMERULAR FILTRATION RATE > 60.0 (>45); GLUCOSE, FASTING 124 MG/DL (70-100); HDL CHOLESTEROL 54 MG/DL (>40); LDL CHOLESTEROL 107 MG/DL (<100); NON-HDL-C 127 MG/DL; SODIUM LEVEL 143 MEQ/L (136-145); TOTAL PROTEIN 7.1 GM/DL (6.4-8.2); TRIGLYCERIDES LEVEL 99 MG/DL (<150)
[2021-10-31 09:13] LABS: MALB URINE SIEMENS 21.9 MG/L; MAU/CREAT RATIO 14.2 MCG/MG (0.0-30.0)
[2021-10-31 11:35] LABS: MAGNESIUM LEVEL 1.9 MG/DL (1.8-2.4)
== END ==
LOC: M LAB 07:35
PROVIDERS: ATTEND Internal Medicine
DX: E78.00 Pure hypercholesterolemia, unspecified (principal); E11.9 Type 2 diabetes mellitus without complications; I10 Essential (primary) hypertension

== ENCOUNTER → 2021-12-26 | Outpatient (CLI) | payer OTHER, BC ==
[~2021-12-26] MED LIST changes: -D31000TA2 PO; +VITA100093 PO
[2021-12-26 07:30] LABS: BASO % 0.6 % (0.0-1.0); EOS # 0.4 10^3/uL (0.0-0.5); EOS % 7.5 % (0.0-3.0); HEMATOCRIT 41.4 % (36.0-47.0); HEMOGLOBIN 13.4 g/dl (12.0-15.5); LYMPH # 1.5 10^3/uL (1.5-5.0); LYMPH % 29.6 % (24.0-44.0); MEAN CORPUSCULAR HEMOGLOBIN 28.5 pg (27.0-33.0); MEAN CORPUSCULAR HGB CONC 32.4 g/dl (32.0-36.5); MEAN CORPUSCULAR VOLUME 87.9 fl (80.0-96.0); MONO # 0.5 10^3/uL (0.0-0.8); MONO % 9.2 % (2.0-8.0); NEUTROPHILS # 2.7 10^3/uL (1.5-8.5); NEUTROPHILS % 52.9 % (36.0-66.0); PLATELET COUNT, AUTOMATED 222 10^3/uL (150-450); RED BLOOD COUNT 4.71 10^6/uL (4.00-5.40); WHITE BLOOD COUNT 5.1 10^3/uL (4.0-10.0)
== END ==
LOC: M LAB 07:07
PROVIDERS: ATTEND Allergy & Immunology Allergy
DX: D80.6 Antibody deficiency with near-normal immunoglobulins or with hyperimmunoglobulinemia (principal)

== ENCOUNTER → 2022-02-25 | Outpatient (REF) | payer OTHER, BC | LOC: M PLALAB 15:44 | PROVIDERS: ATTEND Obstetrics & Gynecology | DX: R87.615 Unsatisfactory cytologic smear of cervix (principal); Z12.4 Encounter for screening for malignant neoplasm of cervix | CPT/HCPCS: 87624; G0123 ==

== ENCOUNTER → 2022-04-06 | Outpatient (CLI) | payer OTHER, BC ==
[~2022-04-06] VITALS: Ht 154.9 cm; Wt 72.7 kg
[~2022-04-06] MED LIST changes: +TIXAGEVIMAB/CILGAVIMAB (EVUSHELD) 150MG-150MG 3ML VIAL (EUA) IM NO SITE ONE; +[UNRECOGNIZED DRUG - CODE]; +[UNRECOGNIZED DRUG - SUPPLY]
[2022-04-06 14:33] VITALS: BP 129/70
[2022-04-06 15:50] VITALS: BP 124/74
== END ==
LOC: M INFU 14:01
PROVIDERS: ATTEND Internal Medicine Pulmonary Disease
DX: J45.50 Severe persistent asthma, uncomplicated (principal); D80.3 Selective deficiency of immunoglobulin G [IgG] subclasses; Z88.1 Allergy status to other antibiotic agents; Z88.8 Allergy status to other drugs, medicaments and biological substances

== ENCOUNTER → 2022-05-04 | Outpatient (CLI) | payer OTHER, BC ==
[~2022-05-04] MED LIST changes: -TIXAGEVIMAB/CILGAVIMAB (EVUSHELD) 150MG-150MG 3ML VIAL (EUA) IM NO SITE ONE
[2022-05-04 09:33] LABS: ALBUMIN 3.4 GM/DL (3.2-5.2); BILIRUBIN,TOTAL 0.7 MG/DL (0.2-1.0); CALCIUM LEVEL 10.5 MG/DL (8.8-10.2); CHOLESTEROL RISK RATIO 3.017 (<5); CREATININE FOR GFR 0.99 MG/DL (0.55-1.30); GLOMERULAR FILTRATION RATE 59.2 (>45); MAGNESIUM LEVEL 1.5 MG/DL (1.8-2.4); POTASSIUM SERUM 3.5 MEQ/L (3.5-5.1); TOTAL PROTEIN 6.9 GM/DL (6.4-8.2)
[2022-05-04 10:19] LABS: HEMOGLOBIN A1c 8.5 %
== END ==
LOC: M LAB 08:05 → M PLALAB 08:05
PROVIDERS: ATTEND Internal Medicine
DX: I10 Essential (primary) hypertension (principal); E78.00 Pure hypercholesterolemia, unspecified; E11.9 Type 2 diabetes mellitus without complications

== ENCOUNTER → 2022-07-01 | Outpatient (CLI) | payer OTHER, BC ==
[2022-07-01 15:09] LABS: BASO % 0.6 % (0.0-1.0); EOS # 0.2 10^3/uL (0.0-0.5); EOS % 4.4 % (0.0-3.0); HEMATOCRIT 37.7 % (36.0-47.0); HEMOGLOBIN 12.5 g/dl (12.0-15.5); LYMPH # 1.9 10^3/uL (1.5-5.0); LYMPH % 35.6 % (24.0-44.0); MEAN CORPUSCULAR HGB CONC 33.2 g/dl (32.0-36.5); MEAN CORPUSCULAR VOLUME 87.5 fl (80.0-96.0); MONO # 0.5 10^3/uL (0.0-0.8); MONO % 9.8 % (2.0-8.0); NEUTROPHILS # 2.6 10^3/uL (1.5-8.5); NEUTROPHILS % 49.4 % (36.0-66.0); PLATELET COUNT, AUTOMATED 214 10^3/uL (150-450); RED BLOOD COUNT 4.31 10^6/uL (4.00-5.40); WHITE BLOOD COUNT 5.2 10^3/uL (4.0-10.0)
== END ==
LOC: M LAB 14:47
PROVIDERS: ATTEND Allergy & Immunology Allergy
DX: D80.6 Antibody deficiency with near-normal immunoglobulins or with hyperimmunoglobulinemia (principal)

== ENCOUNTER → 2022-07-31 | Outpatient (CLI) | payer OTHER, BC ==
[2022-07-31 08:54] LABS: HEMATOCRIT 42.7 % (36.0-47.0); HEMOGLOBIN 13.6 g/dl (12.0-15.5); MEAN CORPUSCULAR HEMOGLOBIN 28.2 pg (27.0-33.0); MEAN CORPUSCULAR HGB CONC 31.9 g/dl (32.0-36.5); MEAN CORPUSCULAR VOLUME 88.6 fl (80.0-96.0); PLATELET COUNT, AUTOMATED 219 10^3/uL (150-450); RED BLOOD COUNT 4.82 10^6/uL (4.00-5.40); WHITE BLOOD COUNT 4.6 10^3/uL (4.0-10.0)
[2022-07-31 09:09] LABS: HEMOGLOBIN A1c 6.7 %
[2022-07-31 09:29] LABS: ALBUMIN 3.6 GM/DL (3.2-5.2); ALT/SGPT 24 U/L (12-78); BILIRUBIN,TOTAL 0.8 MG/DL (0.2-1.0); BLOOD UREA NITROGEN 13 MG/DL (7-18); CARBON DIOXIDE LEVEL 30 MEQ/L (21-32); CHLORIDE LEVEL 105 MEQ/L (98-107); CHOLESTEROL LEVEL 164 MG/DL (<200); CHOLESTEROL RISK RATIO 3.416 (<5); CREATININE FOR GFR 0.78 MG/DL (0.55-1.30); FREE T4 0.93 NG/DL (0.76-1.46); GLOMERULAR FILTRATION RATE > 60.0 (>45); GLUCOSE, FASTING 117 MG/DL (70-100); HDL CHOLESTEROL 48 MG/DL (>40); LDL CHOLESTEROL 81 MG/DL (<100); NON-HDL-C 116 MG/DL; POTASSIUM SERUM 3.8 MEQ/L (3.5-5.1); SODIUM LEVEL 139 MEQ/L (136-145); TOTAL PROTEIN 7.5 GM/DL (6.4-8.2); TRIGLYCERIDES LEVEL 175 MG/DL (<150)
[2022-07-31 09:33] LABS: MALB URINE SIEMENS 18.5 MG/L; MAU/CREAT RATIO 10.5 MCG/MG (0.0-30.0)
[2022-07-31 11:31] LABS: TOTAL 25(OH) VITAMIN D 65.7 NG/ML (30.0-100.0); VITAMIN B12 LEVEL 398 PG/ML (247-911)
== END ==
LOC: M LAB 07:50
PROVIDERS: ATTEND Internal Medicine Hematology
DX: E11.9 Type 2 diabetes mellitus without complications (principal)

== ENCOUNTER → 2023-01-06 | Outpatient (CLI) | payer OTHER, BC ==
[~2023-01-06] MED LIST changes: +MONT-5 PO; -SING10TA32 PO
[2023-01-06 16:37] LABS: BASO % 0.4 % (0.0-1.0); EOS # 0.1 10^3/uL (0.0-0.5); EOS % 2.2 % (0.0-3.0); HEMATOCRIT 39.2 % (36.0-47.0); HEMOGLOBIN 12.6 g/dl (12.0-15.5); LYMPH # 1.5 10^3/uL (1.5-5.0); LYMPH % 28.7 % (24.0-44.0); MEAN CORPUSCULAR HEMOGLOBIN 28.4 pg (27.0-33.0); MEAN CORPUSCULAR HGB CONC 32.1 g/dl (32.0-36.5); MEAN CORPUSCULAR VOLUME 88.3 fl (80.0-96.0); MONO # 0.5 10^3/uL (0.0-0.8); MONO % 9.6 % (2.0-8.0); NEUTROPHILS # 3.2 10^3/uL (1.5-8.5); NEUTROPHILS % 58.9 % (36.0-66.0); PLATELET COUNT, AUTOMATED 233 10^3/uL (150-450); RED BLOOD COUNT 4.44 10^6/uL (4.00-5.40); WHITE BLOOD COUNT 5.3 10^3/uL (4.0-10.0)
[2023-01-06 17:06] LABS: ALBUMIN 3.6 G/DL (3.2-5.2); ALKALINE PHOSPHATASE 37 U/L (46-116); ALT/SGPT 24 U/L (7.0-40); AST/SGOT 28 U/L (<34); BILIRUBIN,TOTAL 0.5 MG/DL (0.3-1.2); BLOOD UREA NITROGEN 21 MG/DL (9-23); CALCIUM LEVEL 10.1 MG/DL (8.3-10.6); CARBON DIOXIDE LEVEL 30 MMOL/L (20-31); CHLORIDE LEVEL 104 MMOL/L (98-107); CREATININE FOR GFR 0.93 MG/DL (0.55-1.30); GLOMERULAR FILTRATION RATE > 60.0 (>45); GLUCOSE, FASTING 101 MG/DL (74-106); IMMUNOGLOBULIN G 1309 MG/DL (650-1600); SODIUM LEVEL 139 MMOL/L (136-145); TOTAL PROTEIN 7.3 G/DL (5.7-8.2)
== END ==
LOC: M LAB 15:07
PROVIDERS: ATTEND Allergy & Immunology Allergy
DX: D80.6 Antibody deficiency with near-normal immunoglobulins or with hyperimmunoglobulinemia (principal)

== ENCOUNTER → 2023-02-16 | Outpatient (CLI) | payer OTHER, BC | LOC: M WHC 14:37 | PROVIDERS: ATTEND Internal Medicine Hematology | DX: Z13.820 Encounter for screening for osteoporosis (principal) ==

== ENCOUNTER → 2023-02-25 | Outpatient (CLI) | payer OTHER, BC ==
[~2023-02-25] MED LIST changes: +TEZE210S
[2023-02-25 07:07] LABS: HEMATOCRIT 39.8 % (36.0-47.0); MEAN CORPUSCULAR HGB CONC 32.7 g/dl (32.0-36.5); MEAN CORPUSCULAR VOLUME 88.8 fl (80.0-96.0); PLATELET COUNT, AUTOMATED 216 10^3/uL (150-450); RED BLOOD COUNT 4.48 10^6/uL (4.00-5.40); WHITE BLOOD COUNT 4.1 10^3/uL (4.0-10.0)
[2023-02-25 07:31] LABS: C REACTIVE PROTEIN QUANTITATIV < 0.40 MG/DL (<1.0)
[2023-02-25 07:32] LABS: CREATININE, URINE 129.5 MG/DL
[2023-02-25 07:33] LABS: ALBUMIN 3.7 G/DL (3.2-5.2); ALKALINE PHOSPHATASE 33 U/L (46-116); ALT/SGPT 26 U/L (7.0-40); AST/SGOT 23 U/L (<34); BILIRUBIN,TOTAL 0.7 MG/DL (0.3-1.2); BLOOD UREA NITROGEN 17 MG/DL (9-23); CALCIUM LEVEL 9.8 MG/DL (8.3-10.6); CARBON DIOXIDE LEVEL 30 MMOL/L (20-31); CHLORIDE LEVEL 105 MMOL/L (98-107); CHOLESTEROL LEVEL 149 MG/DL (<200); CHOLESTEROL RISK RATIO 3.01 (<5); CREATININE FOR GFR 0.82 MG/DL (0.55-1.30); GLOMERULAR FILTRATION RATE > 60.0 (>39); GLUCOSE, FASTING 90 MG/DL (74-106); HDL CHOLESTEROL 49.4 MG/DL (>40); LDL CHOLESTEROL 76.6 MG/DL (<100); NON-HDL-C 99.6 MG/DL; POTASSIUM SERUM 4.1 MMOL/L (3.5-5.1); SODIUM LEVEL 139 MMOL/L (136-145); TOTAL PROTEIN 7.1 G/DL (5.7-8.2); TRIGLYCERIDES LEVEL 115 MG/DL (<150)
[2023-02-25 07:33] LABS: MALB URINE SIEMENS < 3.0 MG/L; MAU/CREAT RATIO 2.3 MCG/MG (0.0-30.0)
[2023-02-25 07:34] LABS: THYROID STIMULATING HORMONE 2.496 uIU/ML (0.55-4.78); TOTAL 25(OH) VITAMIN D 64.3 NG/ML (20.0-100.0); VITAMIN B12 LEVEL 278 PG/ML (211-911)
[2023-02-25 07:35] LABS: FREE T4 1.02 NG/DL (0.89-1.76)
== END ==
LOC: M LAB 06:14
PROVIDERS: ATTEND Internal Medicine Hematology
DX: E11.9 Type 2 diabetes mellitus without complications (principal)

== ENCOUNTER → 2023-03-01 | Outpatient (REF) | payer OTHER, BC | LOC: M PLALAB 11:57 | PROVIDERS: ATTEND Obstetrics & Gynecology | DX: Z01.419 Encounter for gynecological examination (general) (routine) without abnormal findings (principal) | CPT/HCPCS: 87624; G0123 ==

== ENCOUNTER → 2023-03-08 | Outpatient (CLI) | payer OTHER, BC ==
[~2023-03-08] MED LIST changes: +ISOVUE-370 76% 100ML VIAL ONE
== END ==
LOC: M PLAIMG 08:28
PROVIDERS: ATTEND Internal Medicine Medical Oncology
DX: C50.911 Malignant neoplasm of unspecified site of right female breast (principal)
CPT/HCPCS: 71260; Q9967

== ENCOUNTER → 2023-04-26 | Outpatient (CLI) | payer MEDICARE, OTHER ==
[~2023-04-26] MED LIST changes: -ISOVUE-370 76% 100ML VIAL ONE
== END ==
LOC: M RAD 11:23
PROVIDERS: ATTEND Internal Medicine Hematology & Oncology
DX: C50.919 Malignant neoplasm of unspecified site of unspecified female breast (principal)
CPT/HCPCS: 78306; A9503

== ENCOUNTER 2023-05-13 15:37 | Outpatient (CLI) | payer OTHER, MEDICARE ==
[~2023-05-13] VITALS: Ht 165.1 cm; Wt 65.0 kg
[~2023-05-13 15:37] MED LIST changes: +SEMA0.257 SQ; +TEZEPELUMAB-EKKO 210MG 1.91ML SYRINGE (TEZSPIRE) SQ ONE
[2023-05-13 15:45] VITALS: BP 130/90; O2SAT 93
== END 2023-05-13 16:10 ==
LOC: M INFU 15:37
PROVIDERS: ATTEND Internal Medicine Pulmonary Disease
DX: J45.50 Severe persistent asthma, uncomplicated (principal); Z88.0 Allergy status to penicillin
CPT/HCPCS: 96372; J2356

== ENCOUNTER 2023-06-10 15:15 | Outpatient (CLI) | payer MEDICARE, OTHER ==
[~2023-06-10] VITALS: Ht 165.1 cm; Wt 65.0 kg
[~2023-06-10 15:15] MED LIST changes: -TEZEPELUMAB-EKKO 210MG 1.91ML SYRINGE (TEZSPIRE) SQ ONE
[2023-06-10 15:22] VITALS: BP 140/81; O2SAT 99
[2023-06-10] MEDS ORDERED: TEZEPELUMAB-EKKO 210MG 1.91ML SYRINGE (TEZSPIRE) SQ ONE (15:30)
[2023-06-12] MEDS ORDERED: ANAS1TAB2 PO (10:17)
== END 2023-06-10 15:50 | disposition home or self-care (01) ==
LOC: M INFU 15:15
PROVIDERS: ATTEND Internal Medicine Pulmonary Disease
DX: J45.50 Severe persistent asthma, uncomplicated (principal); Z88.1 Allergy status to other antibiotic agents
CPT/HCPCS: 96372; J2356

== ENCOUNTER 2023-07-09 15:10 | Outpatient (CLI) | payer MEDICARE, OTHER ==
[~2023-07-09] VITALS: Ht 157.5 cm; Wt 65.0 kg
[2023-07-09 15:02] VITALS: BP 135/64; O2SAT 96
[~2023-07-09 15:10] MED LIST changes: +TEZEPELUMAB-EKKO 210MG 1.91ML SYRINGE (TEZSPIRE) SQ ONE
== END 2023-07-09 15:15 ==
LOC: M INFU 15:10
PROVIDERS: ATTEND Internal Medicine Pulmonary Disease
DX: J45.50 Severe persistent asthma, uncomplicated (principal); Z88.0 Allergy status to penicillin
CPT/HCPCS: 96372; J2356

== ENCOUNTER 2023-08-09 11:21 | Outpatient (CLI) | payer MEDICARE, OTHER ==
[~2023-08-09] VITALS: Ht 154.9 cm; Wt 63.6 kg
[~2023-08-09 11:21] MED LIST changes: -TEZEPELUMAB-EKKO 210MG 1.91ML SYRINGE (TEZSPIRE) SQ ONE
[2023-08-09 11:24] VITALS: BP 130/73; O2SAT 98
[2023-08-09] MEDS ORDERED: TEZEPELUMAB-EKKO 210MG 1.91ML SYRINGE (TEZSPIRE) SQ ONE (11:30)
== END 2023-08-09 11:35 ==
LOC: M INFU 11:21
PROVIDERS: ATTEND Internal Medicine Pulmonary Disease
DX: J45.50 Severe persistent asthma, uncomplicated (principal); Z88.0 Allergy status to penicillin; Z88.1 Allergy status to other antibiotic agents
CPT/HCPCS: 96372; J2356

== ENCOUNTER → 2023-09-03 | Outpatient (CLI) | payer MEDICARE, OTHER | LOC: M PLAIMG 12:21 | PROVIDERS: ATTEND Physician Assistant | DX: K64.4 Residual hemorrhoidal skin tags (principal); K62.5 Hemorrhage of anus and rectum; K59.00 Constipation, unspecified ==

== ENCOUNTER 2023-09-06 07:00 | Outpatient (CLI) | payer MEDICARE, OTHER ==
[~2023-09-06] VITALS: Ht 154.9 cm; Wt 63.3 kg
[2023-09-06 07:00] VITALS: BP 130/79; O2SAT 98
[2023-09-06] MEDS ORDERED: TEZEPELUMAB-EKKO 210MG 1.91ML SYRINGE (TEZSPIRE) SQ ONE (07:25)
== END 2023-09-06 07:40 ==
LOC: M INFU 07:00
PROVIDERS: ATTEND Internal Medicine Pulmonary Disease
DX: J45.50 Severe persistent asthma, uncomplicated (principal); Z88.0 Allergy status to penicillin
CPT/HCPCS: 96372; J2356

== ENCOUNTER 2023-10-04 07:48 | Outpatient (CLI) | payer MEDICARE, OTHER ==
[2023-10-04 08:09] VITALS: BP 143/64; O2SAT 99
[2023-10-04] MEDS ORDERED: TEZEPELUMAB-EKKO 210MG 1.91ML SYRINGE (TEZSPIRE) SQ ONE (09:00)
== END 2023-10-04 08:15 ==
LOC: M INFU 07:48
PROVIDERS: ATTEND Internal Medicine Pulmonary Disease
DX: J45.50 Severe persistent asthma, uncomplicated (principal); Z88.0 Allergy status to penicillin; Z88.1 Allergy status to other antibiotic agents
CPT/HCPCS: 96372; J2356

== ENCOUNTER → 2023-10-06 | Outpatient (CLI) | payer MEDICARE, OTHER ==
[2023-10-06 10:34] LABS: HEMOGLOBIN 13.6 g/dl (12.0-15.5); MEAN CORPUSCULAR HEMOGLOBIN 29.4 pg (27.0-33.0); MEAN CORPUSCULAR HGB CONC 33.2 g/dl (32.0-36.5); MEAN CORPUSCULAR VOLUME 88.6 fl (80.0-96.0); PLATELET COUNT, AUTOMATED 233 10^3/uL (150-450); RED BLOOD COUNT 4.63 10^6/uL (4.00-5.40); WHITE BLOOD COUNT 4.6 10^3/uL (4.0-10.0)
[2023-10-06 10:38] LABS: C REACTIVE PROTEIN QUANTITATIV < 0.40 MG/DL (<1.0)
[2023-10-06 10:40] LABS: ALBUMIN 3.6 G/DL (3.2-5.2); ALKALINE PHOSPHATASE 41 U/L (46-116); ALT/SGPT 19 U/L (7.0-40); AST/SGOT 17 U/L (<34); BILIRUBIN,TOTAL 0.7 MG/DL (0.3-1.2); BLOOD UREA NITROGEN 13 MG/DL (9-23); CALCIUM LEVEL 9.7 MG/DL (8.3-10.6); CARBON DIOXIDE LEVEL 30 MMOL/L (20-31); CHLORIDE LEVEL 105 MMOL/L (98-107); CHOLESTEROL LEVEL 187 MG/DL (<200); CHOLESTEROL RISK RATIO 3.52 (<5); CREATININE FOR GFR 0.82 MG/DL (0.55-1.30); GLOMERULAR FILTRATION RATE > 60.0 (>39); GLUCOSE, FASTING 104 MG/DL (74-106); LDL CHOLESTEROL 102.6 MG/DL (<100); POTASSIUM SERUM 3.9 MMOL/L (3.5-5.1); SODIUM LEVEL 139 MMOL/L (136-145); TOTAL PROTEIN 6.5 G/DL (5.7-8.2); TRIGLYCERIDES LEVEL 157 MG/DL (<150)
[2023-10-06 10:43] LABS: FREE T4 1.17 NG/DL (0.89-1.76); THYROID STIMULATING HORMONE 4.521 uIU/ML (0.55-4.78); TOTAL 25(OH) VITAMIN D 70.3 NG/ML (20.0-100.0)
[2023-10-06 10:58] LABS: MALB URINE SIEMENS < 3.0 MG/L; MAU/CREAT RATIO 5.5 MCG/MG (0.0-30.0)
[2023-10-06 11:01] LABS: VITAMIN B12 LEVEL 674 PG/ML (211-911)
== END ==
LOC: M PLALAB 08:21
PROVIDERS: ATTEND Internal Medicine Hematology
DX: E11.9 Type 2 diabetes mellitus without complications (principal); Z79.899 Other long term (current) drug therapy

== ENCOUNTER 2023-11-01 06:55 | Outpatient (CLI) | payer MEDICARE, OTHER ==
[~2023-11-01] VITALS: Ht 154.9 cm; Wt 63.6 kg
[2023-11-01 06:55] VITALS: BP 148/82; O2SAT 98
[2023-11-01] MEDS: TEZEPELUMAB-EKKO 210MG 1.91ML SYRINGE (TEZSPIRE) SQ ONE (07:09)
== END 2023-11-01 07:15 | disposition home or self-care (01) ==
LOC: M INFU 06:55
PROVIDERS: ATTEND Internal Medicine Pulmonary Disease
DX: J45.50 Severe persistent asthma, uncomplicated (principal); Z88.0 Allergy status to penicillin; Z88.1 Allergy status to other antibiotic agents
CPT/HCPCS: 96372; J2356

== ENCOUNTER 2023-11-29 06:50 | Outpatient (CLI) | payer MEDICARE, OTHER ==
[~2023-11-29] VITALS: Ht 154.9 cm; Wt 65.4 kg
[2023-11-29 06:50] VITALS: BP 131/79; O2SAT 94
[~2023-11-29 06:50] MED LIST changes: -ALBU8.5H IH; +ALBU8.5H INH; +CYAN-11 PO; +RSV120VI IM; -TEZE210S; +TEZE210S IM
[2023-11-29] MEDS: TEZEPELUMAB-EKKO 210MG 1.91ML SYRINGE (TEZSPIRE) SQ ONE (06:57)
== END 2023-11-29 07:05 ==
LOC: M INFU 06:50
PROVIDERS: ATTEND Internal Medicine Pulmonary Disease
DX: J45.50 Severe persistent asthma, uncomplicated (principal); Z88.0 Allergy status to penicillin; Z88.1 Allergy status to other antibiotic agents
CPT/HCPCS: 96372; J2356

== ENCOUNTER 2023-12-08 08:20 | Day surgery (SDC) | payer MEDICARE, OTHER ==
[~2023-12-08] VITALS: Ht 154.9 cm; Wt 62.9 kg
[2023-12-08] MEDS: NS 1,000 ML IV ONE (08:38)
[2023-12-08] MEDS ORDERED: propofoL 500 MG/50 ML VIAL As Ordered ONE (09:48)
[2023-12-08] MEDS ORDERED: LIDOCAINE 2% 100MG/5ML SDV (FOR ANES.) As Ordered ONE (09:48)
[2023-12-08 10:19] VITALS: TEMP 98.4
[2023-12-08 10:38] VITALS: BP 121/63; O2SAT 97
== END 2023-12-08 10:49 | disposition home or self-care (01) ==
LOC: M OPP 08:20
PROVIDERS: ATTEND Surgery
DX: K55.20 Angiodysplasia of colon without hemorrhage (principal); K64.4 Residual hemorrhoidal skin tags; K64.8 Other hemorrhoids; K31.7 Polyp of stomach and duodenum; K31.89 Other diseases of stomach and duodenum; K30 Functional dyspepsia; E11.9 Type 2 diabetes mellitus without complications; Z87.891 Personal history of nicotine dependence; Z79.02 Long term (current) use of antithrombotics/antiplatelets; Z79.84 Long term (current) use of oral hypoglycemic drugs; Z79.51 Long term (current) use of inhaled steroids; Z79.899 Other long term (current) drug therapy; Z88.1 Allergy status to other antibiotic agents

== ENCOUNTER 2023-12-28 13:00 | Outpatient (CLI) | payer MEDICARE, OTHER ==
[~2023-12-28] VITALS: Ht 154.9 cm; Wt 65.1 kg
[2023-12-28 13:00] VITALS: BP 131/76; O2SAT 98
[2023-12-28] MEDS: TEZEPELUMAB-EKKO 210MG 1.91ML SYRINGE (TEZSPIRE) SQ ONE (13:06)
== END 2023-12-28 13:15 | disposition home or self-care (01) ==
LOC: M INFU 13:00
PROVIDERS: ATTEND Internal Medicine Pulmonary Disease
DX: J45.50 Severe persistent asthma, uncomplicated (principal); Z88.0 Allergy status to penicillin; Z88.1 Allergy status to other antibiotic agents
CPT/HCPCS: 96372; J2356

== ENCOUNTER 2024-01-24 06:55 | Outpatient (CLI) | payer MEDICARE, OTHER ==
[~2024-01-24] VITALS: Ht 154.9 cm; Wt 64.0 kg
[2024-01-24 06:55] VITALS: BP 114/61; O2SAT 97
[2024-01-24] MEDS: TEZEPELUMAB-EKKO 210MG 1.91ML SYRINGE (TEZSPIRE) SQ ONE (07:02)
== END 2024-01-24 07:10 | disposition home or self-care (01) ==
LOC: M INFU 06:55
PROVIDERS: ATTEND Internal Medicine Pulmonary Disease
DX: J45.50 Severe persistent asthma, uncomplicated (principal); Z88.0 Allergy status to penicillin; Z88.1 Allergy status to other antibiotic agents
CPT/HCPCS: 96372; J2356

== ENCOUNTER 2024-02-21 07:36 | Outpatient (CLI) | payer MEDICARE, OTHER ==
[~2024-02-21] VITALS: Ht 154.9 cm; Wt 64.0 kg
[2024-02-21 07:30] VITALS: BP 124/66; O2SAT 99
[2024-02-21] MEDS: TEZEPELUMAB-EKKO 210MG 1.91ML SYRINGE (TEZSPIRE) SQ ONE (07:48)
== END 2024-02-21 08:00 ==
LOC: M INFU 07:36
PROVIDERS: ATTEND Internal Medicine Pulmonary Disease
DX: J45.50 Severe persistent asthma, uncomplicated (principal); Z88.1 Allergy status to other antibiotic agents
CPT/HCPCS: 96372; J2356

== ENCOUNTER 2024-03-27 09:33 | Outpatient (CLI) | payer MEDICARE, OTHER ==
[~2024-03-27] VITALS: Ht 154.9 cm; Wt 73.2 kg
[2024-03-27 09:40] VITALS: BP 132/78; O2SAT 100
[2024-03-27] MEDS: TEZEPELUMAB-EKKO 210MG 1.91ML SYRINGE (TEZSPIRE) SQ ONE (09:46)
== END 2024-03-27 09:50 ==
LOC: M INFU 09:33
PROVIDERS: ATTEND Internal Medicine Pulmonary Disease
DX: J45.50 Severe persistent asthma, uncomplicated (principal); Z88.1 Allergy status to other antibiotic agents; Z88.8 Allergy status to other drugs, medicaments and biological substances
CPT/HCPCS: 96372; J2356

== ENCOUNTER → 2024-04-03 | Outpatient (CLI) | payer MEDICARE, OTHER ==
[2024-04-03 11:39] LABS: BASO % 0.7 % (0.0-1.0); EOS # 0.2 10^3/uL (0.0-0.5); EOS % 3.5 % (0.0-3.0); HEMATOCRIT 41.2 % (36.0-47.0); HEMOGLOBIN 13.4 g/dl (12.0-15.5); LYMPH # 1.4 10^3/uL (1.5-5.0); MEAN CORPUSCULAR HEMOGLOBIN 29.5 pg (27.0-33.0); MEAN CORPUSCULAR HGB CONC 32.5 g/dl (32.0-36.5); MEAN CORPUSCULAR VOLUME 90.7 fl (80.0-96.0); MONO # 0.5 10^3/uL (0.0-0.8); NEUTROPHILS # 2.5 10^3/uL (1.5-8.5); NEUTROPHILS % 54.4 % (36.0-66.0); PLATELET COUNT, AUTOMATED 245 10^3/uL (150-450); RED BLOOD COUNT 4.54 10^6/uL (4.00-5.40); WHITE BLOOD COUNT 4.5 10^3/uL (4.0-10.0)
[2024-04-03 11:43] LABS: C REACTIVE PROTEIN QUANTITATIV < 0.40 MG/DL (<1.0)
[2024-04-03 11:45] LABS: ALBUMIN 3.6 G/DL (3.2-5.2); ALKALINE PHOSPHATASE 35 U/L (46-116); ALT/SGPT 33 U/L (7.0-40); AST/SGOT 20 U/L (<34); BILIRUBIN,TOTAL 0.8 MG/DL (0.3-1.2); BLOOD UREA NITROGEN 18 MG/DL (9-23); CALCIUM LEVEL 9.9 MG/DL (8.3-10.6); CARBON DIOXIDE LEVEL 30 MMOL/L (20-31); CHLORIDE LEVEL 105 MMOL/L (98-107); CREATININE FOR GFR 0.88 MG/DL (0.55-1.30); GLOMERULAR FILTRATION RATE > 60.0 (>39); GLUCOSE, FASTING 106 MG/DL (74-106); POTASSIUM SERUM 4.1 MMOL/L (3.5-5.1); SODIUM LEVEL 141 MMOL/L (136-145); TOTAL PROTEIN 6.5 G/DL (5.7-8.2)
[2024-04-03 11:47] LABS: THYROID STIMULATING HORMONE 3.075 uIU/ML (0.55-4.78)
[2024-04-03 12:02] LABS: CREATININE, URINE 135.2 MG/DL
[2024-04-03 12:03] LABS: MALB URINE SIEMENS < 3.0 MG/L; MAU/CREAT RATIO 2.2 MCG/MG (0.0-30.0)
[2024-04-03 12:18] LABS: HEMOGLOBIN A1c 6.1 % (4.0-6.0)
== END ==
LOC: M PLALAB 07:40
PROVIDERS: ATTEND Internal Medicine Hematology
DX: E11.9 Type 2 diabetes mellitus without complications (principal)

== ENCOUNTER 2024-04-24 09:20 | Outpatient (CLI) | payer MEDICARE, OTHER ==
[~2024-04-24] VITALS: Ht 154.9 cm; Wt 64.5 kg
[2024-04-24 09:28] VITALS: BP 140/79; O2SAT 100
[2024-04-24] MEDS: TEZEPELUMAB-EKKO 210MG 1.91ML SYRINGE (TEZSPIRE) SQ ONE (09:42)
== END 2024-04-24 09:49 | disposition home or self-care (01) ==
LOC: M INFU 09:20
PROVIDERS: ATTEND Internal Medicine Pulmonary Disease
DX: J45.50 Severe persistent asthma, uncomplicated (principal); Z88.1 Allergy status to other antibiotic agents; Z88.8 Allergy status to other drugs, medicaments and biological substances
CPT/HCPCS: 96372; J2356

== ENCOUNTER 2024-05-23 10:40 | Outpatient (CLI) | payer MEDICARE, OTHER ==
[~2024-05-23] VITALS: Ht 154.9 cm; Wt 64.5 kg
[2024-05-23 10:40] VITALS: BP 130/82; O2SAT 97
[2024-05-23] MEDS: TEZEPELUMAB-EKKO 210MG 1.91ML SYRINGE (TEZSPIRE) SQ ONE (10:50)
== END 2024-05-23 11:00 ==
LOC: M INFU 10:40
PROVIDERS: ATTEND Internal Medicine Pulmonary Disease
DX: J45.50 Severe persistent asthma, uncomplicated (principal); Z88.1 Allergy status to other antibiotic agents
CPT/HCPCS: 96372; J2356

== ENCOUNTER 2024-06-20 08:00 | Outpatient (CLI) | payer MEDICARE, OTHER ==
[~2024-06-20] VITALS: Ht 154.9 cm; Wt 65.0 kg
[2024-06-20 08:05] VITALS: BP 136/82; O2SAT 98
[2024-06-20] MEDS: TEZEPELUMAB-EKKO 210MG 1.91ML SYRINGE (TEZSPIRE) SQ ONE (08:21)
== END 2024-06-20 08:30 ==
LOC: M INFU 08:00
PROVIDERS: ATTEND Internal Medicine Pulmonary Disease
DX: J45.50 Severe persistent asthma, uncomplicated (principal); Z88.1 Allergy status to other antibiotic agents; Z88.8 Allergy status to other drugs, medicaments and biological substances
CPT/HCPCS: 96372; J2356

== ENCOUNTER 2024-07-18 09:50 | Outpatient (CLI) | payer MEDICARE, OTHER ==
[~2024-07-18] VITALS: Ht 182.9 cm; Wt 65.0 kg
[2024-07-18] MEDS: TEZEPELUMAB-EKKO 210MG 1.91ML SYRINGE (TEZSPIRE) SQ ONE (09:58)
[2024-07-18 10:02] VITALS: BP 137/76; O2SAT 99
== END 2024-07-18 10:10 | disposition home or self-care (01) ==
LOC: M INFU 09:50
PROVIDERS: ATTEND Internal Medicine Pulmonary Disease
DX: J45.50 Severe persistent asthma, uncomplicated (principal); Z88.1 Allergy status to other antibiotic agents
CPT/HCPCS: 96372; J2356

== ENCOUNTER 2024-08-15 10:00 | Outpatient (CLI) | payer MEDICARE, OTHER ==
[~2024-08-15] VITALS: Ht 154.9 cm; Wt 64.5 kg
[2024-08-15 10:00] VITALS: BP 129/71; O2SAT 100
[2024-08-15] MEDS: TEZEPELUMAB-EKKO 210MG 1.91ML SYRINGE (TEZSPIRE) SQ ONE (10:14)
== END 2024-08-15 10:15 ==
LOC: M INFU 10:00
PROVIDERS: ATTEND Internal Medicine Pulmonary Disease
DX: J45.50 Severe persistent asthma, uncomplicated (principal); Z88.1 Allergy status to other antibiotic agents; Z88.8 Allergy status to other drugs, medicaments and biological substances
CPT/HCPCS: 96372; J2356

== ENCOUNTER → 2024-08-28 | Outpatient (CLI) | payer MEDICARE, OTHER ==
[~2024-08-28] MED LIST changes: +OMEP-611 PO; -OMEP20TA2 PO
== END ==
LOC: M RAD 14:07
PROVIDERS: ATTEND Internal Medicine Medical Oncology
DX: M25.551 Pain in right hip (principal)

== ENCOUNTER 2024-09-12 09:53 | Outpatient (CLI) | payer MEDICARE, OTHER ==
[~2024-09-12] VITALS: Ht 154.9 cm; Wt 65.5 kg
[2024-09-12 10:00] VITALS: BP 137/75; O2SAT 98
[2024-09-12] MEDS: TEZEPELUMAB-EKKO 210MG 1.91ML SYRINGE (TEZSPIRE) SQ ONE (10:14)
== END 2024-09-12 10:25 | disposition home or self-care (01) ==
LOC: M INFU 09:53
PROVIDERS: ATTEND Internal Medicine Pulmonary Disease
DX: J45.50 Severe persistent asthma, uncomplicated (principal); Z88.1 Allergy status to other antibiotic agents
CPT/HCPCS: 96372; J2356

== ENCOUNTER 2024-10-10 07:50 | Outpatient (CLI) | payer MEDICARE, OTHER ==
[~2024-10-10] VITALS: Ht 154.9 cm; Wt 64.5 kg
[2024-10-10] MEDS: TEZEPELUMAB-EKKO 210MG 1.91ML SYRINGE (TEZSPIRE) SQ ONE (08:04)
[2024-10-10 08:15] VITALS: BP 132/94; O2SAT 96
== END 2024-10-10 08:15 ==
LOC: M INFU 07:50
PROVIDERS: ATTEND Internal Medicine Pulmonary Disease
DX: J45.50 Severe persistent asthma, uncomplicated (principal); Z88.1 Allergy status to other antibiotic agents
CPT/HCPCS: 96372; J2356

== ENCOUNTER 2024-11-07 07:40 | Outpatient (CLI) | payer MEDICARE, OTHER ==
[~2024-11-07] VITALS: Ht 154.9 cm; Wt 66.0 kg
[2024-11-07] MEDS: TEZEPELUMAB-EKKO 210MG 1.91ML SYRINGE (TEZSPIRE) SQ ONE (07:47)
[2024-11-07 08:00] VITALS: BP 133/90; O2SAT 98
== END 2024-11-07 07:55 ==
LOC: M INFU 07:40
PROVIDERS: ATTEND Internal Medicine Pulmonary Disease
DX: J45.50 Severe persistent asthma, uncomplicated (principal); Z88.1 Allergy status to other antibiotic agents
CPT/HCPCS: 96372; J2356

== ENCOUNTER 2024-12-05 09:05 | Outpatient (CLI) | payer MEDICARE, OTHER ==
[~2024-12-05] VITALS: Ht 154.9 cm; Wt 65.0 kg
[2024-12-05 09:10] VITALS: BP 131/80; O2SAT 98
[2024-12-05] MEDS: TEZEPELUMAB-EKKO 210MG 1.91ML SYRINGE (TEZSPIRE) SQ ONE (09:21)
== END 2024-12-05 09:25 ==
LOC: M INFU 09:05
PROVIDERS: ATTEND Internal Medicine Pulmonary Disease
DX: J45.50 Severe persistent asthma, uncomplicated (principal); Z88.1 Allergy status to other antibiotic agents
CPT/HCPCS: 96372; J2356

== ENCOUNTER 2025-01-02 08:21 | Outpatient (CLI) | payer MEDICARE, OTHER ==
[2025-01-02 08:30] VITALS: BP 131/75; O2SAT 97
[2025-01-02] MEDS: TEZEPELUMAB-EKKO 210MG 1.91ML SYRINGE (TEZSPIRE) SQ ONE (08:30)
== END 2025-01-02 08:35 | disposition home or self-care (01) ==
LOC: M INFU 08:21
PROVIDERS: ATTEND Internal Medicine Pulmonary Disease
DX: J45.50 Severe persistent asthma, uncomplicated (principal); Z88.1 Allergy status to other antibiotic agents
CPT/HCPCS: 96372; J2356

== ENCOUNTER 2025-01-30 08:20 | Outpatient (CLI) | payer MEDICARE, OTHER ==
[~2025-01-30] VITALS: Ht 154.9 cm; Wt 66.0 kg
[2025-01-30] MEDS: TEZEPELUMAB EKKO 210 MG/1.91 ML SQ ONE (08:29)
[2025-01-30 08:30] VITALS: BP 121/78; O2SAT 98
== END 2025-01-30 08:45 | disposition home or self-care (01) ==
LOC: M INFU 08:20
PROVIDERS: ATTEND Internal Medicine Pulmonary Disease
DX: J45.50 Severe persistent asthma, uncomplicated (principal); Z88.1 Allergy status to other antibiotic agents

== ENCOUNTER 2025-03-27 08:43 | Outpatient (CLI) | payer MEDICARE, OTHER ==
[~2025-03-27] VITALS: Ht 165.1 cm; Wt 65.9 kg
[2025-03-27] MEDS: TEZEPELUMAB EKKO 210 MG/1.91 ML SQ ONE (09:06)
[2025-03-27 09:15] VITALS: BP 125/76; O2SAT 99
== END 2025-03-27 09:15 ==
LOC: M INFU 08:43
PROVIDERS: ATTEND Internal Medicine Pulmonary Disease
DX: J45.50 Severe persistent asthma, uncomplicated (principal); Z88.1 Allergy status to other antibiotic agents; Z88.8 Allergy status to other drugs, medicaments and biological substances
CPT/HCPCS: 96372; J2356

== ENCOUNTER → 2025-03-30 | Outpatient (CLI) | payer MEDICARE, OTHER ==
[2025-03-30 13:39] LABS: C REACTIVE PROTEIN QUANTITATIV < 0.50 MG/DL (<1.0); RHEUMATOID FACTOR QUANT 9.0 IU/ML (<14)
[2025-04-04 15:52] LABS: HLA-B27 Negative (Negative)
== END ==
LOC: M LAB 07:51
PROVIDERS: ATTEND Student in an Organized Health Care Education/Training Program
DX: M25.641 Stiffness of right hand, not elsewhere classified (principal)

== ENCOUNTER → 2025-04-06 | Outpatient (CLI) | payer MEDICARE, OTHER ==
[2025-04-06 10:57] LABS: BASO # 0.0 10^3/uL (0.0-0.2); BASO % 0.7 % (0.0-1.0); EOS # 0.3 10^3/uL (0.0-0.5); EOS % 6.0 % (0.0-3.0); LYMPH # 1.8 10^3/uL (1.5-5.0); LYMPH % 32.5 % (24.0-44.0); MONO # 0.6 10^3/uL (0.0-0.8); MONO % 10.1 % (2.0-8.0); NEUTROPHILS # 2.8 10^3/uL (1.5-8.5); NEUTROPHILS % 50.5 % (36.0-66.0); PLATELET COUNT, AUTOMATED 231 10^3/uL (150-450)
[2025-04-06 11:22] LABS: ESTIMATED AVERAGE GLUCOSE 134.0 MG/DL (60-110)
[2025-04-06 11:29] LABS: CREATININE, URINE 104.8 MG/DL; MALB URINE SIEMENS < 3.0 MG/L
[2025-04-06 11:30] LABS: ALT/SGPT 24.0 U/L (7.0-40); AST/SGOT 24.0 U/L (<34); CALCIUM LEVEL 9.7 MG/DL (8.3-10.6); CARBON DIOXIDE LEVEL 30.0 MMOL/L (20-31); CHLORIDE LEVEL 104.0 MMOL/L (98-107); CHOLESTEROL LEVEL 150.0 MG/DL (<200); CHOLESTEROL RISK RATIO 3.57 (<5); CREATININE FOR GFR 0.89 MG/DL (0.55-1.30); GLOMERULAR FILTRATION RATE 68.8 (>39); LDL CHOLESTEROL 83.9 MG/DL (<100); NON-HDL-C 108.1 MG/DL; POTASSIUM SERUM 4.4 MMOL/L (3.5-5.1); SODIUM LEVEL 145.0 MMOL/L (136-145); TRIGLYCERIDES LEVEL 121.0 MG/DL (<150)
== END ==
LOC: M PLALAB 07:03
PROVIDERS: ATTEND Student in an Organized Health Care Education/Training Program
DX: I10 Essential (primary) hypertension (principal); E11.9 Type 2 diabetes mellitus without complications

== ENCOUNTER 2025-04-24 13:19 | Outpatient (CLI) | payer MEDICARE, OTHER ==
[~2025-04-24] VITALS: Ht 154.9 cm; Wt 65.0 kg
[2025-04-24 13:25] VITALS: BP 136/80; O2SAT 99
[2025-04-24] MEDS: TEZEPELUMAB EKKO 210 MG/1.91 ML SQ ONE (13:37)
== END 2025-04-24 13:43 | disposition home or self-care (01) ==
LOC: M INFU 13:19
PROVIDERS: ATTEND Internal Medicine Pulmonary Disease
DX: J45.50 Severe persistent asthma, uncomplicated (principal); Z88.1 Allergy status to other antibiotic agents
CPT/HCPCS: 96372; J2356

== ENCOUNTER 2025-05-22 13:20 | Outpatient (CLI) | payer MEDICARE, OTHER ==
[~2025-05-22] VITALS: Ht 154.9 cm; Wt 65.0 kg
[2025-05-22 13:40] VITALS: BP 133/81; O2SAT 98
[2025-05-22] MEDS: TEZEPELUMAB EKKO 210 MG/1.91 ML SQ ONE (14:11)
== END 2025-05-22 14:25 ==
LOC: M INFU 13:20
PROVIDERS: ATTEND Internal Medicine Pulmonary Disease
DX: J45.50 Severe persistent asthma, uncomplicated (principal); Z88.1 Allergy status to other antibiotic agents
CPT/HCPCS: 96372; J2356

== ENCOUNTER 2025-06-19 08:25 | Outpatient (CLI) | payer MEDICARE, OTHER ==
[~2025-06-19] VITALS: Ht 154.9 cm; Wt 65.0 kg
[2025-06-19 08:35] VITALS: BP 127/71; O2SAT 98
[2025-06-19] MEDS: TEZEPELUMAB EKKO 210 MG/1.91 ML SQ ONE (08:43)
== END 2025-06-19 08:50 ==
LOC: M INFU 08:25
PROVIDERS: ATTEND Internal Medicine Pulmonary Disease
DX: J45.50 Severe persistent asthma, uncomplicated (principal); Z88.1 Allergy status to other antibiotic agents
CPT/HCPCS: 96372; J2356

== ENCOUNTER 2025-07-17 07:54 | Outpatient (CLI) | payer MEDICARE, OTHER ==
[~2025-07-17] VITALS: Ht 154.9 cm; Wt 65.5 kg
[2025-07-17 07:55] VITALS: BP 124/75; O2SAT 99
[2025-07-17] MEDS: TEZEPELUMAB EKKO 210 MG/1.91 ML SQ ONE (08:45)
[2025-07-18] MEDS ORDERED: TEZEPELUMAB EKKO 210 MG/1.91 ML SQ ONE (08:00)
== END 2025-07-17 09:05 ==
LOC: M INFU 07:54
PROVIDERS: ATTEND Internal Medicine Pulmonary Disease
DX: J45.50 Severe persistent asthma, uncomplicated (principal); Z88.1 Allergy status to other antibiotic agents
CPT/HCPCS: 96372; J2356

== ENCOUNTER 2025-08-14 07:44 | Outpatient (CLI) | payer MEDICARE, OTHER ==
[2025-08-14] MEDS: TEZEPELUMAB EKKO 210 MG/1.91 ML SQ ONE (08:14)
[2025-08-14 14:28] VITALS: BP 138/88; O2SAT 98
== END 2025-08-14 08:20 | disposition home or self-care (01) ==
LOC: M INFU 07:44
PROVIDERS: ATTEND Internal Medicine Pulmonary Disease
DX: J45.50 Severe persistent asthma, uncomplicated (principal); Z88.1 Allergy status to other antibiotic agents
CPT/HCPCS: 96372; J2356

== ENCOUNTER 2025-09-11 07:30 | Outpatient (CLI) | payer MEDICARE, OTHER ==
[2025-09-11 07:35] VITALS: BP 126/79; O2SAT 100
[2025-09-11] MEDS: TEZEPELUMAB EKKO 210 MG/1.91 ML SQ ONE (07:37)
== END 2025-09-11 07:46 | disposition home or self-care (01) ==
LOC: M INFU 07:30
PROVIDERS: ATTEND Internal Medicine Pulmonary Disease
DX: J45.50 Severe persistent asthma, uncomplicated (principal); Z88.1 Allergy status to other antibiotic agents
CPT/HCPCS: 96372; J2356